=== PATIENT | female | born 1950 | race African-American/Black ===

== ENCOUNTER 2016-12-02 20:33 | Inpatient (IN) | payer MEDICARE ==
[~2016-12-02] VITALS: Ht 165.1 cm; Wt 79.0 kg
[~2016-12-02 20:33] MED LIST: AMLO10TA4 PO; CALC667C6 PO; CARV12.5 PO; FOLI0.8T30 PO; HYDR-2868 PO; HYDR-2869 PO; SPIR25TA PO
[2016-12-02 21:23] LABS: INR 0.9 (0.8-1.1); PROTHROMBIN TIME PATIENT 11.8 SEC (11.7-14.0)
[2016-12-02] MEDS ORDERED: ONDANSETRON PF 4 MG/2 ML VIAL. IV ONE (21:45)
[2016-12-02 21:47] LABS: BASO # 0.1 x10^3/uL (0.0-0.2); BASO % 1 % (0-3); EOS % 2 % (0-3); LYMPH # 1.1 x10^3/uL (1.0-4.8); LYMPH % 21 % (24-48); MEAN CORPUSCULAR HEMOGLOBIN 32 pg (25-35); MEAN CORPUSCULAR HGB CONC 32 g/dL (31-37); MEAN CORPUSCULAR VOLUME 98 fL (79-100); MONO % 8 % (0-9); NEUT % 69 % (31-73); RED BLOOD COUNT 3.76 x10^6/uL (3.50-5.40); RED CELL DISTRIBUTION WIDTH 13.2 % (11.5-14.5)
--- NOTE | 2016-12-02 21:48 | ED.ADGEN ---
Past Medical History Past Medical History: Diabetes-Type II, Hypertension, Renal Failure Additional Past Medical Histor: PSORIATIC ARTHRITIS, DIALYSIS Past Surgical History: , Tubal ligation Additional Past Surgical Histo: L ROTATOR CUFF Alcohol Use: None Drug Use: None Adult General Chief Complaint Chief Complaint: NAUSEA/VOMITING/DIARRHA HPI HPI Patient is a 65 year old [woman, history of type 2 diabetes mellitus, hypertension, renal failure, on hemodialysis, who presents emergency department after several episodes of nausea and vomiting that occurred at her dialysis center today when she was completing dialysis, associated with abdominal cramping and lightheadedness. Per report, the emesis was dark, concern for "looking like coffee". Patient has no history of GI bleeding, no injuries or other episodes of similar events. She has had no vomiting since the leaving the dialysis center, states that she had at least 5 or 6 episodes at that time. Patient denies any preceding symptoms, any fevers or chills, any cough, any chest pain, any shortness of breath, any weakness numbness or tingling. No headache or vision changes. She states she is feeling "very weak" at this time, no cramping currently but still feels dizzy and lightheaded. Denies any missed doses of medication or medication changes. No recent travel or surgery. Review of Systems Review of Systems Constitutional: Denies fever or chills. [] Lightheadedness and dizziness. Eyes: Denies change in visual acuity. [] HENT: Denies nasal congestion or sore throat. [] Respiratory: Denies cough or shortness of breath. [] Cardiovascular: Denies chest pain or edema. [] GI: Abdominal cramping, nausea, vomiting, no dark tarry stools no diarrhea. : Denies dysuria. [] Musculoskeletal: Denies back pain or joint pain. [] Integument: Denies rash. [] Neurologic: Denies headache, focal weakness or sensory changes. [] Endocrine: Denies polyuria or polydipsia. [] Lymphatic: Denies swollen glands. [] Psychiatric: Denies depression or anxiety. [] Current Medications Current Medications Current Medications Medications (Trade) Dose Ordered Sig/Erwin Start Time Stop Time Status Last Admin Dose Admin Ondansetron HCl (Zofran) 4 mg 1X ONCE 12/02/16 21:45 12/02/16 21:46 DC 12/02/16 21:49 4 MG Allergies Allergies Allergies Coded Allergies Type Severity Reaction Last Updated Verified No Known Drug Allergies 03/20/16 No Physical Exam Physical Exam Constitutional: Well developed, well nourished, no acute distress, non-toxic appearance. [] HENT: Normocephalic, atraumatic, bilateral external ears normal, oropharynx moist, no oral exudates, nose normal. [] Eyes: PERRLA, EOMI, conjunctiva normal, no discharge. [] Neck: Normal range of motion, no tenderness, supple, no stridor. [] Cardiovascular:Heart rate regular rhythm, no murmur, S1, S2, rubs or gallops. [] Lungs & Thorax: Bilateral breath sounds clear to auscultation, no wheezing, rhonchi, rales. No chest or crepitus or tenderness. [] Abdomen: Bowel sounds normal, soft, no tenderness, no rebound, rigidity, no guarding, no masses, no pulsatile masses. [] Skin: Warm, dry, no erythema, no rash. [] Back: No tenderness, no CVA tenderness. [] Extremities: No tenderness, no cyanosis, no clubbing, ROM intact, no edema. Negative Homans sign. Patient with left upper extremity AV fistula with good thrill, site is clean dry with dressing intact. [] Neurologic: Alert and oriented X 3, normal motor function, normal sensory function, no focal deficits noted. [] Psychologic: Affect normal, judgement normal, mood normal. [] Current Patient Data Vital Signs Vital Signs Date Time Temp Pulse Resp B/P Pulse Ox O2 Delivery O2 Flow Rate FiO2 12/02/16 23:00 78 100 Room Air 12/02/16 22:30 188/99 12/02/16 20:40 97.6 16 97.6 Lab Values Laboratory Tests Test 12/02/16 21:00 12/02/16 21:35 Prothrombin Time 11.8SEC (11.7-14.0) Prothrombin Time INR 0.9 (0.8-1.1) PTT 26SEC (24-38) White Blood Count 5.0x10^3/uL (4.0-11.0) Red Blood Count 3.76x10^6/uL (3.50-5.40) Hemoglobin 12.0g/dL (12.0-15.5) Hematocrit 37.0% (36.0-47.0) Mean Corpuscular Volume 98fL (79-100) Mean Corpuscular Hemoglobin 32pg (25-35) Mean Corpuscular Hemoglobin Concent 32g/dL (31-37) Red Cell Distribution Width 13.2% (11.5-14.5) Platelet Count 93x10^3/uL (140-400) L Neutrophils (%) (Auto) 69% (31-73) Lymphocytes (%) (Auto) 21% (24-48) L Monocytes (%) (Auto) 8% (0-9) Eosinophils (%) (Auto) 2% (0-3) Basophils (%) (Auto) 1% (0-3) Neutrophils # (Auto) 3.5x10^3uL (1.8-7.7) Lymphocytes # (Auto) 1.1x10^3/uL (1.0-4.8) Monocytes # (Auto) 0.4x10^3/uL (0.0-1.1) Eosinophils # (Auto) 0.1x10^3/uL (0.0-0.7) Basophils # (Auto) 0.1x10^3/uL (0.0-0.2) Platelet Estimate Decreased (ADEQUATE) Large Platelets Few Giant Platelets Occ Sodium Level 124mmol/L (136-145) L Potassium Level 4.4mmol/L (3.5-5.1) Chloride Level 94mmol/L (98-107) L Carbon Dioxide Level 16mmol/L (21-32) L Anion Gap 14 (6-14) Blood Urea Nitrogen 23mg/dL (7-20) H Creatinine 4.1mg/dL (0.6-1.0) H Estimated GFR (Cockcroft-Gault) 13.2 BUN/Creatinine Ratio 6 (6-20) Glucose Level 181mg/dL (70-99) H Calcium Level 9.1mg/dL (8.5-10.1) Total Bilirubin 0.5mg/dL (0.2-1.0) Aspartate Amino Transferase (AST) 56U/L (15-37) H Alanine Aminotransferase (ALT) 40U/L (14-59) Alkaline Phosphatase 88U/L (46-116) Troponin I Quantitative < 0.017ng/mL (0.000-0.055) Total Protein 9.0g/dL (6.4-8.2) H Albumin 3.5g/dL (3.4-5.0) Albumin/Globulin Ratio 0.6 (1.0-1.7) L Laboratory Tests 12/02/16 21:35 Laboratory Tests 12/02/16 21:35 EKG EKG EC: Sinus rhythm, heart rate 70 bpm, left axis deviation, QTC of 455, [place] 216, QRS of 92, some baseline artifact noted, with contour abnormalities noted in the anterior leads and lateral leads, but no ST elevations or depressions, abnormal ECG, does not meet STEMI criteria. As interpreted by me. [] Radiology/Procedures Radiology/Procedures Acute abdominal series: 3 view: Patient with top normal cardiac silhouette,mild cephalization noted, no large effusion or infiltrate identified, no free air, patient with a positive gas in the upper abdomen, noted to have stool and bowel gas throughout the middle and lower parts of the abdomen, constipation noted, no air-fluid levels or evidence of obvious obstruction, as interpreted by me. [] Course & Med Decision Making Course & Med Decision Making Pertinent Labs and Imaging studies reviewed. (See chart for details) Patient with improvement of her symptoms in the ED, states she still feels fatigued, but has had no further vomiting at this time. States he still feels slightly dizzy. CT of the head and imaging of the abdomen was unremarkable for any acute abnormalities. Laboratory studies revealed a mild hyponatremia, potassium was 4.4, with a chloride of 96. No other concerning findings identified. As patient still feels fatigued and dizzy, with some nausea but is improved at this time, I did discuss findings as above with Dr. Cerda of nephrology. It is unlikely the patient's symptoms are due to her sodium level, however he recommends the patient be admitted and observed overnight, will obtain laboratory studies in the morning. I did discuss this with patient and family bedside, patient is agreeable with this plan. She is feeling much better at this time, and as stated has had no further vomiting. Patient initially noted to be hypertensive as well, blood pressure has improved in the ED. Findings as above were discussed with Dr. Rico of internal medicine, patient accepted to her service as a full admission to the medical telemetry floor for monitoring and evaluation as stated. Bridge orders entered per discussion. Dragon Disclaimer Dragon Disclaimer This electronic medical record was generated, in whole or in part, using a voice recognition dictation system. Departure Impression: Primary Impression: ESRD (end stage renal disease) Additional Impression: Nausea and vomiting Disposition: 09 ADMITTED INPATIENT Admitting Physician: Other Condition: IMPROVED Problem Qualifiers SINGH CHILDERS DO Dec 02, 2016 21:48
[2016-12-02 21:58] LABS: CALCIUM 9.1 mg/dL (8.5-10.1); CREATININE 4.1 mg/dL (0.6-1.0); GFR 13.2; POTASSIUM 4.4 mmol/L (3.5-5.1)
[2016-12-02 22:05] LABS: ALBUMIN 3.5 g/dL (3.4-5.0); ALBUMIN/GLOBULIN RATIO 0.6 (1.0-1.7); TOTAL BILIRUBIN 0.5 mg/dL (0.2-1.0)
[2016-12-02 22:11] LABS: PLATELET COUNT 93 x10^3/uL (140-400)
--- NOTE | 2016-12-02 22:37 | RAD ---
PROCEDURE CT head without intravenous contrast. HISTORY Nausea, vomiting, dizziness after hemodialysis. TECHNIQUE Axial images are obtained of the head from the skull base through the vertex without IV contrast Exposure: One or more of the following individualized dose reduction techniques were utilized for this examination: 1. Automated exposure control. 2. Adjustment of the mA and/or kV according to patient size. 3. Use of iterative reconstruction technique. COMPARISON None. FINDINGS The ventricles are appropriate in size, shape, and location for the patient's age.No obvious intracranial mass, mass-effect, midline shift, hemorrhage or obvious acute infarction is identified.Basilar cisterns are patent. Patchy, nonspecific white matter low attenuation is seen, probably from chronic microvascular ischemic disease. Bone windows demonstrate no acute calvarial abnormality.The visualized paranasal sinuses appear clear. IMPRESSION 1. No acute intracranial process. Please note that CT can be relatively insensitive to acute ischemic infarction for up to 24 hours after symptom onset. 2. Nonspecific white matter changes, probably from chronic microvascular ischemic disease. Electronically signed by: Song Ribera MD (Dec 02, 2016 22:35:55)
[2016-12-02 23:03] LABS: PLT ESTIMATE DECREASED (ADEQUATE)
--- NOTE | 2016-12-02 23:57 | ACF ---
Admission Forms Criteria HYPONATREMIA; HYPERNATREMIA; HYPOKALEMIA; HYPERKALEMIA; HYPOCALCEMIA; HYPERCALCEMIA Clinical Indications for Inpatient Care (Place 'X' for any and all applicable criteria): Ongoing inpatient care may be indicated for ANY ONE of the following [G](1)(2)(3 )(5): [ ]I. Hyponatremia with ANY ONE of the following: [ ]a) Sodium less than 130 mEq/L (mmol/L) (new) (6)(22) [ ]b) Sodium less than 135 mEq/L (mmol/L) with ANY ONE of the following: [ ]i) Severe medical etiology requiring inpatient management (eg, heart failure, hypovolemia) [ ]ii) Altered mental status [ ]iii) Seizures [ ]II. Hypernatremia with ANY ONE of the following: [ ]a) Sodium greater than 155 mEq/L (mmol/L) [ ]b) Sodium greater than 150 mEq/L (mmol/L) with ANY ONE of the following: [ ] i) Altered mental status [ ]ii) Seizures [ ]iii) Severe medical etiology (eg, hypovolemia, diabetes insipidus) [ ]iv) Severe weakness [ ]v) Severe medical etiology (eg, hemolysis, infection, drug overdose) [ ]III. Hypokalemia with ANY ONE of the following: [ ]a) Potassium less than 2.5 mEq/L (mmol/L) despite outpatient and emergency treatment [ ]b) Potassium less than 3.0 mEq/L (mmol/L) with ANY ONE of the following: [ ]i) Weakness [ ]ii) Cardiac abnormality (eg, arrhythmia, conduction disturbance) [ ]iii) Cardiac ischemia [ ]iv) Ileus [ ]v) Ongoing medical cause requiring inpatient management. ( e.g., acute renal wasting, SIADH) [ ]vi) Other severe symptoms [ ] IV. Hyperkalemia with ANY ONE of the following: [ ]a) Potassium greater than 6.5 mEq/L (mmol/L) [ ]b) Potassium greater than 5 mEq/L (mmol/L) with ANY ONE of the following: [ ]i) Severe ECG findings [H] [ ]ii) Acute worsening of renal failure (creatinine greater than 2.5 mg/dL (221 micromoles/L) or significant elevation for age and size) [ ] V. Hypocalcemia with ANY ONE of the following: [ ]a) Calcium less than 7 mg/dL (1.75 mmol/L) despite outpatient and emergency treatment(19) [ ]b) Calcium less than 8 mg/dL (2 mmol/L) with significant symptoms or findings; examples include: [ ]i) Cardiac abnormality (eg, arrhythmia or conduction disturbance) [ ]ii) Altered mental status [ ]iii) Seizures [ ]iv) Breathing difficulty [ ]v) Muscle spasms [ ]. Hypercalcemia with ANY ONE of the following: [ ]a) Calcium greater than 14 mg/dL (3.5 mmol/L) [ ]b) Calcium greater than 12 mg/dL (3 mmol/L) with ANY ONE of the following: [ ]i) Significant dehydration or hypovolemia as indicated by ANY ONE of the following(2): [ ]1. Clinically significant dehydration as indicated by ANY ONE of the following: [ ]A. Acute loss of weight from baseline (5% of body weight in adults, 9% in pediatric patients) [ ]B. Hemodynamic instability [ ]C. Acute renal failure [ ]D. Serum sodium greater than 150 mEq/L (mmol/L) [ ]2) Dehydration that is persistent indicated by ALL of the following: [ ]A. Oral rehydration therapy not tolerated or insufficient to adequately correct dehydration [ ]B. Appropriate intravenous treatment (eg, fluids ) does not readily correct dehydration ie, after 12 to 24 hours of treatment) [ ]ii) Significant symptoms or findings; examples include: [ ]1) Altered mental status [ ]2) Cardiac abnormality (eg, arrhythmia, conduction disturbance) [ ]3) Cardiac abnormality (eg, arrhythmia, conduction disturbance) The original [employer] content created by [employer] has been revised. The portions of the content which have been revised are identified through the use of italic text or in bold, and [employer] has neither reviewed nor approved the modified material. All other unmodified content is copyright [employer] Please see references footnoted in the original [employer] edition 2016 FANI DENNIS Dec 02, 2016 23:57
[2016-12-03] VITALS (8 sets, daily range): BP systolic 114–192; BP diastolic 64–103
[2016-12-03] MEDS ORDERED: ACETAMINOPHEN 325 MG TABLET. PO PRN (00:15)
[2016-12-03] MEDS ORDERED: DEXTROSE 50% 25 GM / 50ML DISP.SYRIN. IV PRN (00:15)
[2016-12-03] MEDS ORDERED: ONDANSETRON PF 4 MG/2 ML VIAL. IV PRN (00:15)
[2016-12-03] MEDS ORDERED: LABETALOL 20 MG/4 ML DISP.SYRIN. IVP PRN (00:30)
--- NOTE | 2016-12-03 00:33 | ACF ---
Admission Forms Criteria RENAL FAILURE, CHRONIC Clinical Indications for Admission to Inpatient Care (Place 'X' for any and all applicable criteria): Admission is indicated for ANY ONE of the following (1)(2)(3)(4)(5): [X]I. Inpatient admission required rather than observation care (Use Renal Failure, Chronic: Observation Care Criteria as appropriate) because of ANY ONE of the following: [X]a) Volume overload or uremic symptoms (eg, clinically significant pulmonary edema, hypertension, pericarditis, acidosis) too severe for, or not responsive (eg, for over 24 hours) to emergency department or observation care dialysis or treatment regimen (11) [ ]b) Hemodynamic instability that is severe or persistent [ ]c) Respiratory distress that is severe or persistent (11) [ ]d) Clinically significant electrolyte abnormality that requires inpatient care (eg,hyperkalemia with severe ECG findings)[B] [ ]e) Supplement O2 or respiratory therapy for over 24hrs that is performable only in acute inpatient setting [ ]f) Continuous IV infusion of anticoagulation, platelet inhibitor, vasoactive, or Antiarrhythmic medication (15), [ ]g) Pulmonary artery catheter monitoring [ ]h) Temporary pacemaker placement [ ]i) Emergent pericardiocentesis [ ]j) Other condition, treatment or monitoring requiring inpatient admission [ ]II. Unexplained syncope [A] [ ]III. Recurrent seizures [ ]IV. Severe infections not treatable in outpatient setting (eg, peritonitis)(9 ) [ ]V. Cardiac arrhythmias of immediate concern [ ]. Encephalopathy [ ]VII.Bleeding abnormalities (eg, platelet dysfunction) with active (eg, gastrointestinal) bleeding Extended stay beyond goal length of stay may be needed for (3)(4)(35)(36): [ ]a) Continuing uremic complications [ ]b) Comorbidities or complications The original [employer] content created by [employer] has been revised. The portions of the content which have been revised are identified through the use of italic text or in bold, and [facility] has neither reviewed nor approved the modified material. All other unmodified content is copyright [employer]. Please see references footnoted in the original [facility] edition 2016 Admission Criteria Met?: Yes FANI DENNIS Dec 03, 2016 00:33
[2016-12-03] MEDS: INSULIN ASPART 300 UNITS/3 ML INSULN.PEN SQ SCH ×3 (08:00→17:00)
--- NOTE | 2016-12-03 08:06 | EKG ---
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
--- NOTE | 2016-12-03 08:09 | RAD ---
Acute abdomen series with chest, 3 views, 12/02/2016: History: Nausea and vomiting There is gas and a moderate amount of stool in the colon in a nonspecific pattern. No free air seen in the abdomen. There is no evidence of organomegaly. Scattered degenerative changes are present in the spine. The heart size and pulmonary vascularity are normal. The lungs are clear. There is no evidence of pleural fluid. IMPRESSION: No acute abdominal abnormality is detected.
[2016-12-03 11:35] LABS: CALCIUM 8.7 mg/dL (8.5-10.1); CREATININE 5.6 mg/dL (0.6-1.0); GFR 9.2
--- NOTE | 2016-12-03 11:37 | PDOC2 ---
CONSULT Date of Consult Date of Consult DATE: 12/03/16 TIME: 11:33 Reason for Consult Reason for Consult: LOW NA AND ESRD Referring Physician Referring Physician: YOHANNES Identification/Chief Complaint Chief Complaint N/V Source Source: Chart review, Patient History of Present Illness Reason for Visit: THIS IS A 65 YR OLD ADMITTED WITH N/V. SHE HAS ESRD AND IS ON HD MWF. SHE STARTED TO HAVE THESE SYMPTOMS TOWARDS THE END OF HER HD YESTERDAY. SHE WAS TAKEN OFF AND THEN SENT TO THE ER WHERE SHE WAS NOTED TO HAVE A NA LEVEL OF 124. OTHER LABS ARE C/W ESRD Past Medical History Cardiovascular: HTN GI: Constipation Heme/Onc: Anemia NOS Hepatobiliary: No pertinent hx Psych: No pertinent hx Musculoskeletal: low back pain Renal/: Chronic renal failure Endocrine: Diabetes, Hyperparathyroidism Past Surgical History Past Surgical History: , Tubal Ligation, Other Family History Family History: Hypertension Social History ALCOHOL: none Current Problem List Problem List Problems Medical Problems: (1) ESRD (end stage renal disease) Status: Acute (2) Nausea and vomiting Status: Acute Current Medications Current Medications Current Medications Ondansetron HCl (Zofran) 4 mg 1X ONCE IV Last administered on 12/02/16t 21:49 ; Start 12/02/16 at 21:45; Stop 12/02/16 at 21:46; Status DC Ondansetron HCl (Zofran) 4 mg PRN Q8HRS PRN IV NAUSEA/VOMITING; Start 12/03/16 at 00:15; Stop 12/04/16 at 00:14 Acetaminophen (Tylenol) 650 mg PRN Q4HRS PRN PO FEVER; Start 12/03/16 at 00:15 ; Stop 12/04/16 at 00:14 Insulin Aspart (Novolog) 0-5 UNITS TIDWMEALS SQ ; Start 12/03/16 at 08:00 Dextrose 12.5 gm PRN Q15MIN PRN IV SEE COMMENTS; Start 12/03/16 at 00:15 Labetalol HCl (Normodyne) 20 mg PRN Q2HR PRN IVP HYPERTENSION, SEE COMMENTS; Start 12/03/16 at 00:30 Active Scripts Active Aldactone (Spironolactone) 25 Mg Tablet 1 Tab PO DAILY Coreg (Carvedilol) 12.5 Mg Tablet 1 Tab PO BID Norvasc (Amlodipine Besylate) 10 Mg Tablet 10 Mg PO DAILY Phoslo (Calcium Acetate) 667 Mg Capsule 667 Mg PO TIDWMEALS Reported Hydralazine Hcl 50 Mg Tablet 1 Tab PO BID Renal Vitamin Tablet (Folic Acid/Vit Bcomp,C) 0.8 Mg Tablet 0.8 Mg PO Allergies Allergies: Coded Allergies: No Known Drug Allergies (Unverified , 03/20/16) ROS General: YES: Appetite, Fatigue PSYCHOLOGICAL ROS: YES: Anxiety Eyes: Yes Decreased vision HEENT: YES: Heacaches Respiratory: YES: Cough Gastrointestinal: Yes Constipation, Yes Nausea, Yes Vomiting Genitourinary: YES Other (OLIGURIA) Musculoskeletal: Yes Muscular Weakness Neurological: Yes Weakness Skin: Yes Dry Skin Physical Exam General: Alert, Oriented X3, Cooperative, mild distress HEENT: Atraumatic, PERRLA Lungs: Clear to auscultation Heart: Regular rate, Normal S1 Abdomen: Normal bowel sounds Extremities: No clubbing Neuro: Normal speech, Cranial nerves 3-12 NL Psych/Mental Status: Mental status NL, Mood NL MUSCULOSKELETAL: No deformity, No swelling Vitals VITALS Vital Signs Date Time Temp Pulse Resp B/P Pulse Ox O2 Delivery O2 Flow Rate FiO2 12/03/16 11:01 98.1 77 20 134/71 97 Room Air 98.1 Labs Labs Laboratory Tests Test 12/02/16 21:00 12/02/16 21:35 12/03/16 01:09 12/03/16 06:54 Prothrombin Time 11.8SEC (11.7-14.0) Prothromb Time International Ratio 0.9 (0.8-1.1) Activated Partial Thromboplast Time 26SEC (24-38) White Blood Count 5.0x10^3/uL (4.0-11.0) Red Blood Count 3.76x10^6/uL (3.50-5.40) Hemoglobin 12.0g/dL (12.0-15.5) Hematocrit 37.0% (36.0-47.0) Mean Corpuscular Volume 98fL (79-100) Mean Corpuscular Hemoglobin 32pg (25-35) Mean Corpuscular Hemoglobin Concent 32g/dL (31-37) Red Cell Distribution Width 13.2% (11.5-14.5) Platelet Count 93x10^3/uL (140-400) Neutrophils (%) (Auto) 69% (31-73) Lymphocytes (%) (Auto) 21% (24-48) Monocytes (%) (Auto) 8% (0-9) Eosinophils (%) (Auto) 2% (0-3) Basophils (%) (Auto) 1% (0-3) Neutrophils # (Auto) 3.5x10^3uL (1.8-7.7) Lymphocytes # (Auto) 1.1x10^3/uL (1.0-4.8) Monocytes # (Auto) 0.4x10^3/uL (0.0-1.1) Eosinophils # (Auto) 0.1x10^3/uL (0.0-0.7) Basophils # (Auto) 0.1x10^3/uL (0.0-0.2) Platelet Estimate Decreased (ADEQUATE) Large Platelets Few Giant Platelets Occ Sodium Level 124mmol/L (136-145) Potassium Level 4.4mmol/L (3.5-5.1) Chloride Level 94mmol/L (98-107) Carbon Dioxide Level 16mmol/L (21-32) Anion Gap 14 (6-14) Blood Urea Nitrogen 23mg/dL (7-20) Creatinine 4.1mg/dL (0.6-1.0) Estimated GFR (Cockcroft-Gault) 13.2 BUN/Creatinine Ratio 6 (6-20) Glucose Level 181mg/dL (70-99) Calcium Level 9.1mg/dL (8.5-10.1) Total Bilirubin 0.5mg/dL (0.2-1.0) Aspartate Amino Transf (AST/SGOT) 56U/L (15-37) Alanine Aminotransferase (ALT/SGPT) 40U/L (14-59) Alkaline Phosphatase 88U/L (46-116) Troponin I Quantitative < 0.017ng/mL (0.000-0.055) Total Protein 9.0g/dL (6.4-8.2) Albumin 3.5g/dL (3.4-5.0) Albumin/Globulin Ratio 0.6 (1.0-1.7) Glucose (Fingerstick) 144mg/dL (70-99) 112mg/dL (70-99) Test 12/03/16 10:27 Glucose (Fingerstick) 112mg/dL (70-99) Laboratory Tests Test 12/02/16 21:00 12/02/16 21:35 12/03/16 01:09 12/03/16 06:54 Prothrombin Time 11.8SEC (11.7-14.0) Prothromb Time International Ratio 0.9 (0.8-1.1) Activated Partial Thromboplast Time 26SEC (24-38) White Blood Count 5.0x10^3/uL (4.0-11.0) Red Blood Count 3.76x10^6/uL (3.50-5.40) Hemoglobin 12.0g/dL (12.0-15.5) Hematocrit 37.0% (36.0-47.0) Mean Corpuscular Volume 98fL (79-100) Mean Corpuscular Hemoglobin 32pg (25-35) Mean Corpuscular Hemoglobin Concent 32g/dL (31-37) Red Cell Distribution Width 13.2% (11.5-14.5) Platelet Count 93x10^3/uL (140-400) Neutrophils (%) (Auto) 69% (31-73) Lymphocytes (%) (Auto) 21% (24-48) Monocytes (%) (Auto) 8% (0-9) Eosinophils (%) (Auto) 2% (0-3) Basophils (%) (Auto) 1% (0-3) Neutrophils # (Auto) 3.5x10^3uL (1.8-7.7) Lymphocytes # (Auto) 1.1x10^3/uL (1.0-4.8) Monocytes # (Auto) 0.4x10^3/uL (0.0-1.1) Eosinophils # (Auto) 0.1x10^3/uL (0.0-0.7) Basophils # (Auto) 0.1x10^3/uL (0.0-0.2) Platelet Estimate Decreased (ADEQUATE) Large Platelets Few Giant Platelets Occ Sodium Level 124mmol/L (136-145) Potassium Level 4.4mmol/L (3.5-5.1) Chloride Level 94mmol/L (98-107) Carbon Dioxide Level 16mmol/L (21-32) Anion Gap 14 (6-14) Blood Urea Nitrogen 23mg/dL (7-20) Creatinine 4.1mg/dL (0.6-1.0) Estimated GFR (Cockcroft-Gault) 13.2 BUN/Creatinine Ratio 6 (6-20) Glucose Level 181mg/dL (70-99) Calcium Level 9.1mg/dL (8.5-10.1) Total Bilirubin 0.5mg/dL (0.2-1.0) Aspartate Amino Transf (AST/SGOT) 56U/L (15-37) Alanine Aminotransferase (ALT/SGPT) 40U/L (14-59) Alkaline Phosphatase 88U/L (46-116) Troponin I Quantitative < 0.017ng/mL (0.000-0.055) Total Protein 9.0g/dL (6.4-8.2) Albumin 3.5g/dL (3.4-5.0) Albumin/Globulin Ratio 0.6 (1.0-1.7) Glucose (Fingerstick) 144mg/dL (70-99) 112mg/dL (70-99) Test 12/03/16 10:27 Glucose (Fingerstick) 112mg/dL (70-99) Assessment/Plan Assessment/Plan IMP HYPONATREMIA NAUSEA/VOMITING-BETTER ESRD PLAN REPEAT NA LEVEL ? LAB ERROR HD MWF OK TO D/C FROM RENAL STANDPOINT IF PENDING NA LEVEL IS GOOD WILL FOLLOW JITENDRA HESS MD Dec 03, 2016 11:36
--- NOTE | 2016-12-03 17:10 | HP ---
ADMIT DATE: 12/02/2016 CHIEF COMPLAINT: Hypotension, hyponatremia after dialysis or during dialysis. HISTORY OF PRESENT ILLNESS: The patient is a 65-year-old -[place] woman who underwent her usual dialysis yesterday. She had bouts of hypotension, which actually prompted transfer to the Emergency Room last night. There she was found with a sodium of 124 and admitted for further observation. This morning, the patient relates that she is feeling much better. She is generally fairly weak and has not gotten up today. She denies any dizziness, any new symptoms. PAST MEDICAL HISTORY: End-stage renal disease, on dialysis; hyperparathyroidism; diabetes mellitus; chronic low back pain; anemia and hypertension. FAMILY HISTORY: Hypertension. SOCIAL HISTORY: No toxic habits. ALLERGIES: No known drug allergies. MEDICATIONS: MAR reconciled with home medications. REVIEW OF SYSTEMS: Positive as per HPI. She is today essentially nonfocal. PHYSICAL EXAMINATION: VITAL SIGNS: From today show a blood pressure of 134/71, heart rate of 77, respiratory rate at 20. She is afebrile. GENERAL: This is an overweight 65-year-old -[place] woman, alert and oriented, in no acute distress. HEENT: Shows no scleral icterus. NECK: Supple. LUNGS: Clear. HEART: Regular rate and rhythm. ABDOMEN: Has positive bowel sounds, soft, nontender. EXTREMITIES: Show no edema. LABORATORY DATA: CBC with a WBC of 5.0, hemoglobin 12.0, platelets of 93. Chemistries with a BUN and creatinine of 36 and 5.6, sodium of 125, chloride of 95, potassium at 5.0, glucose at 111. Of note at admission, sodium had been 124, CO2 at 16. ASSESSMENT AND PLAN: The patient is a 65-year-old woman who comes up with electrolyte derangement right after dialysis. Nephrology has been consulted to direct further adjustments. Typically fluids would be given. Assume potentially dialysis to correct the electrolytes today. For her other medical problems, her blood pressure medications will be continued. Blood pressure currently is under good control. She does have a reported history of insulin; is however, on no medications at home. We will have insulin sliding scale in place here. BETITO SHEFFIELD MD DR: DESTIN/maria antonia JOB#: [id number] / [id number]
[2016-12-03] MEDS: CALCIUM ACETATE 667 MG CAPSULE PO SCH (17:21)
[2016-12-03] MEDS: CARVEDILOL 12.5 MG TABLET PO SCH (17:22)
[2016-12-03] MEDS: HYDRALAZINE 50 MG TABLET PO SCH (20:49)
[2016-12-04 05:28] LABS: BASO # 0.1 x10^3/uL (0.0-0.2); BASO % 1 % (0-3); EOS % 4 % (0-3); HEMATOCRIT 32.4 % (36.0-47.0); HEMOGLOBIN 10.8 g/dL (12.0-15.5); LYMPH # 2.2 x10^3/uL (1.0-4.8); LYMPH % 41 % (24-48); MEAN CORPUSCULAR HEMOGLOBIN 32 pg (25-35); MEAN CORPUSCULAR HGB CONC 34 g/dL (31-37); MEAN CORPUSCULAR VOLUME 97 fL (79-100); MONO % 10 % (0-9); NEUT % 45 % (31-73); RED BLOOD COUNT 3.35 x10^6/uL (3.50-5.40); WHITE BLOOD COUNT 5.4 x10^3/uL (4.0-11.0)
[2016-12-04 07:00] VITALS: BP 143/68
[2016-12-04 07:28] LABS: PLATELET COUNT 64 x10^3/uL (140-400)
[2016-12-04] MEDS: CALCIUM ACETATE 667 MG CAPSULE PO SCH ×2 (08:00→13:48)
[2016-12-04] MEDS: INSULIN ASPART 300 UNITS/3 ML INSULN.PEN SQ SCH ×2 (08:00→12:00)
[2016-12-04 08:50] VITALS: BP 143/68
[2016-12-04] MEDS ORDERED: IV NORMAL SALINE 1000ML BAG 1,000 ML IV PRN ×2 (08:59)
[2016-12-04] MEDS ORDERED: LABETALOL 20 MG/4 ML DISP.SYRIN. IVP PRN (09:00)
[2016-12-04] MEDS ORDERED: AMLODIPINE BESYLATE 10 MG TABLET PO SCH (09:00)
[2016-12-04] MEDS ORDERED: DIALYSIS PATIENT. MC PRN (09:00)
[2016-12-04] MEDS ORDERED: FOLIC/VIT B COMP W-C (RENAL) TABLET. PO SCH (09:00)
[2016-12-04] MEDS ORDERED: DIPHENHYDRAMINE 50 MG/ML VIAL IV PRN ×2 (09:00)
[2016-12-04] MEDS ORDERED: ACETAMINOPHEN 500 MG TABLET PO PRN (09:00)
[2016-12-04 11:00] LABS: POTASSIUM 3.1 mmol/L (3.5-5.1)
--- NOTE | 2016-12-04 11:26 | PDOC ---
Renal-Progress Notes Subjective Notes Notes FEELS WELL History of Present Illness Hx of present illness BETTER Vitals Vitals Vital Signs Date Time Temp Pulse Resp B/P Pulse Ox O2 Delivery O2 Flow Rate FiO2 12/04/16 08:50 98.5 68 16 143/68 99 Room Air 98.5 Weight Weight [ ] I.O. Intake and Output Intake and Output 12/04/16 07:00 Intake Total 1440 ml Balance 1440 ml Intake Oral 1440 ml # Voids 2 Labs Labs Laboratory Tests Test 12/03/16 16:29 12/03/16 20:40 12/04/16 04:20 12/04/16 07:43 Glucose (Fingerstick) 115mg/dL (70-99) 148mg/dL (70-99) 88mg/dL (70-99) White Blood Count 5.4x10^3/uL (4.0-11.0) Red Blood Count 3.35x10^6/uL (3.50-5.40) Hemoglobin 10.8g/dL (12.0-15.5) Hematocrit 32.4% (36.0-47.0) Mean Corpuscular Volume 97fL (79-100) Mean Corpuscular Hemoglobin 32pg (25-35) Mean Corpuscular Hemoglobin Concent 34g/dL (31-37) Red Cell Distribution Width 13.0% (11.5-14.5) Platelet Count 64x10^3/uL (140-400) Neutrophils (%) (Auto) 45% (31-73) Lymphocytes (%) (Auto) 41% (24-48) Monocytes (%) (Auto) 10% (0-9) Eosinophils (%) (Auto) 4% (0-3) Basophils (%) (Auto) 1% (0-3) Neutrophils # (Auto) 2.4x10^3uL (1.8-7.7) Lymphocytes # (Auto) 2.2x10^3/uL (1.0-4.8) Monocytes # (Auto) 0.5x10^3/uL (0.0-1.1) Eosinophils # (Auto) 0.2x10^3/uL (0.0-0.7) Basophils # (Auto) 0.1x10^3/uL (0.0-0.2) Test 12/04/16 10:15 Sodium Level 136mmol/L (136-145) Potassium Level 3.1mmol/L (3.5-5.1) Chloride Level 103mmol/L (98-107) Carbon Dioxide Level 24mmol/L (21-32) Anion Gap 9 (6-14) Review of Systems Constitutional: yes: no symptom reported Ears/Nose/Throat: Yes: no symptom reported Eyes: Yes: no symptom reported Pulmonary: Yes no symptom reported Cardiovascular: Yes no symptom reported Gastrointestional: Yes: no symptom reported Musculoskeletal: Yes: no symptom reported Skin: Yes no symptom reported Psychiatric/Neurological: Yes: no symptom reported Physical Exam General Appearance: no apparent distress Skin: warm Respiratory: bilateral CTA Heart: S1S2, RRR Abdomen: soft, bowel sounds present Genitourinary: bladder flat Neurology: alert, oriented Assessment Assessment IMP HYPONATREMIA-RESOLVED N/V-RESOLVED ANEMIA ESRD PLAN HD TODAY UF TO DW OK TO D/C FROM [facility] JITENDRA HESS MD Dec 04, 2016 11:26
[2016-12-04] MEDS: CARVEDILOL 12.5 MG TABLET PO SCH (13:48)
[2016-12-04] MEDS: HYDRALAZINE 50 MG TABLET PO SCH (13:48)
--- NOTE | 2016-12-04 14:49 | PDOC ---
PROGRESS NOTES Chief Complaint Chief Complaint N/V Hyponatremia ASSESSMENT AND PLAN: 1. N/V: resolved. 2. Hyponatremia: resolved 3. Hyponatremia: addressed in subsequent HD 4. DM: well controlled 5. Dispo: home post HD Vitals Vitals Vital Signs Date Time Temp Pulse Resp B/P Pulse Ox O2 Delivery O2 Flow Rate FiO2 12/04/16 13:49 68 143/68 12/04/16 11:00 OFF UNIT 12/04/16 08:50 98.5 16 99 98.5 Physical Exam General: Alert, Oriented X3, Cooperative, No acute distress Heart: Regular rate, Normal S1 Lungs: Clear Abdomen: Normal bowel sounds Extremities: No clubbing Labs LABS Laboratory Tests Test 12/03/16 16:29 12/03/16 20:40 12/04/16 04:20 12/04/16 07:43 Glucose (Fingerstick) 115mg/dL (70-99) 148mg/dL (70-99) 88mg/dL (70-99) White Blood Count 5.4x10^3/uL (4.0-11.0) Red Blood Count 3.35x10^6/uL (3.50-5.40) Hemoglobin 10.8g/dL (12.0-15.5) Hematocrit 32.4% (36.0-47.0) Mean Corpuscular Volume 97fL (79-100) Mean Corpuscular Hemoglobin 32pg (25-35) Mean Corpuscular Hemoglobin Concent 34g/dL (31-37) Red Cell Distribution Width 13.0% (11.5-14.5) Platelet Count 64x10^3/uL (140-400) Neutrophils (%) (Auto) 45% (31-73) Lymphocytes (%) (Auto) 41% (24-48) Monocytes (%) (Auto) 10% (0-9) Eosinophils (%) (Auto) 4% (0-3) Basophils (%) (Auto) 1% (0-3) Neutrophils # (Auto) 2.4x10^3uL (1.8-7.7) Lymphocytes # (Auto) 2.2x10^3/uL (1.0-4.8) Monocytes # (Auto) 0.5x10^3/uL (0.0-1.1) Eosinophils # (Auto) 0.2x10^3/uL (0.0-0.7) Basophils # (Auto) 0.1x10^3/uL (0.0-0.2) Test 12/04/16 10:15 Sodium Level 136mmol/L (136-145) Potassium Level 3.1mmol/L (3.5-5.1) Chloride Level 103mmol/L (98-107) Carbon Dioxide Level 24mmol/L (21-32) Anion Gap 9 (6-14) Review of Systems Review of Systems feels well, no nausea, no dizziness BETITO SHEFFIELD MD Dec 04, 2016 14:49
[2016-12-04 15:00] VITALS: BP 128/60
[2016-12-04 20:18] LABS: HEP B SURFACE ABDY Reactive (.)
--- NOTE | 2016-12-05 02:22 | DS ---
DATE OF DISCHARGE: 12/04/2016 CHIEF COMPLAINT: Nausea, vomiting and hyponatremia. HOSPITAL COURSE: The patient is a 65-year-old -[place] woman with end-stage renal disease who presented to the Emergency Room directly from dialysis where she had developed nausea and vomiting towards the end of her dialysis cycle. In the Emergency Room, she was found with severe hyponatremia at 125. Unfortunately, it took a while to correct, but on the was completely corrected. The patient underwent dialysis in the hospital and was subsequently discharged. Nausea, vomiting, did not persist past the Emergency Room even without further medications. DISCHARGE DATE: 12/04/2016. DISCHARGE DIAGNOSES: Hyponatremia, nausea, vomiting. DISCHARGE EXAMINATION: Please refer to note from same day. DISCHARGE DISPOSITION: To home. DISCHARGE CONDITION: Improved. DISCHARGE MEDICATIONS: Same as at admit. DISCHARGE INSTRUCTIONS: The patient will continue with dialysis as previously arranged. She will see her primary care physician in 1-2 weeks. BETITO SHEFFIELD MD DR: DESTIN/nts JOB#: [id number] / [id number] CARA Jansen MD
== END 2016-12-04 17:10 | disposition home or self-care (01) | DRG 640 ==
LOC: ER 20:33 → 5 SOUTH 23:17
PROVIDERS: ADMIT Internal Medicine Hematology & Oncology; ATTEND Internal Medicine Hematology & Oncology
PROC: 5A1D00Z (ICD-10-PCS; principal; 2016-12-04)
DX: E87.1 Hypo-osmolality and hyponatremia (principal); N18.6 End stage renal disease; I12.0 Hypertensive chronic kidney disease with stage 5 chronic kidney disease or end stage renal disease; D64.9 Anemia, unspecified; E11.22 Type 2 diabetes mellitus with diabetic chronic kidney disease; E21.3 Hyperparathyroidism, unspecified; G89.29 Other chronic pain; M54.5 Low back pain; Z99.2 Dependence on renal dialysis; Z82.49 Family history of ischemic heart disease and other diseases of the circulatory system; Z98.51 Tubal ligation status
CPT/HCPCS: 36415; 70450; 74022; 80048; 80051; 80053; 82947; 84484; 85007; 85027; 85610; 85730; 86706; 87340; 87341; 93005; 96374; J1815; J2405; 99285-25

== ENCOUNTER 2021-03-19 07:36 | Inpatient (IN) | payer MEDICARE ==
[~2021-03-19] VITALS: Ht 165.1 cm; Wt 69.4 kg
--- NOTE | 2021-03-19 08:19 | RAD ---
Exam performed: One view Chest HISTORY: Shortness of breath. DATE OF SERVICE: 03/19/2021. COMPARISON: Two-view chest from October 30, 2015. FINDINGS: Cardiomegaly. Central vascular congestion is noted. There are prominent interstitial and airspace opa cities in both perihilar regions. There is no pleural effusion or pneumothorax. IMPRESSION: Cardiomegaly with CHF Electronically signed by: Cuca Ellison MD (03/19/2021 8:16 AM) [facility]
[2021-03-19 08:23] LABS: BASO % 0 % (0-3); EOS # 0.1 x10^3/uL (0.0-0.7); EOS % 2 % (0-3); HEMATOCRIT 35.5 % (36.0-47.0); HEMOGLOBIN 11.6 g/dL (12.0-15.5); LYMPH # 0.9 x10^3/uL (1.0-4.8); LYMPH % 18 % (24-48); MEAN CORPUSCULAR HEMOGLOBIN 33 pg (25-35); MEAN CORPUSCULAR HGB CONC 33 g/dL (31-37); MEAN CORPUSCULAR VOLUME 101 fL (79-100); MONO # 0.6 x10^3/uL (0.0-1.1); MONO % 11 % (0-9); NEUT # 3.5 x10^3/uL (1.8-7.7); NEUT % 68 % (31-73); PLATELET COUNT 108 x10^3/uL (140-400); RED BLOOD COUNT 3.51 x10^6/uL (3.50-5.40); RED CELL DISTRIBUTION WIDTH 13.9 % (11.5-14.5); WHITE BLOOD COUNT 5.2 x10^3/uL (4.0-11.0)
--- NOTE | 2021-03-19 08:29 | PHYS DOC ---
Past Medical History Past Medical History: Diabetes-Type II, Hypertension, Renal Failure Additional Past Medical Histor: PSORIATIC ARTHRITIS, DIALYSIS Past Surgical History: , Tubal ligation Additional Past Surgical Histo: L ROTATOR CUFF Smoking Status: Never Smoker Alcohol Use: None Drug Use: None General Adult EDM: Chief Complaint: SHORTNESS OF BREATH HPI: HPI: 70 yo F past medical history of esrd, hypertension, diabetes and CHF, presents to the ED with complaints of shortness of breath and orthopnea since 2:30 AM, unable to sleep at night. Patient is requesting Lasix. Associated lower extremity swelling. Is due for dialysis today, has not missed dialysis. Has been vaccinated for Covid. Review of Systems: Review of Systems: Constitutional: Denies fever or chills. [] Eyes: Denies change in visual acuity. [] HENT: Denies nasal congestion or sore throat. [] Respiratory: Denies cough or hemoptysis Cardiovascular: Denies chest pain or edema. [] GI: Denies abdominal pain, nausea, vomiting, bloody stools or diarrhea. [] : Denies dysuria or hematuria Musculoskeletal: Denies back pain or joint pain. [] Integument: Denies rash or diaphoresis Neurologic: Denies headache, focal weakness or sensory changes. [] Endocrine: Denies polyuria or polydipsia. [] Lymphatic: Denies swollen glands. [] Psychiatric: Denies depression or anxiety. [] Heart Score: C/O Chest Pain: No Risk Factors: Risk Factors: DM, Current or recent (<one month) smoker, HTN, HLP, family history of CAD, obesity. Risk Scores: Score 0 - 3: 2.5% MACE over next 6 weeks - Discharge Home Score 4 - 6: 20.3% MACE over next 6 weeks - Admit for Clinical Observation Score 7 - 10: 72.7% MACE over next 6 weeks - Early Invasive Strategies Allergies: Allergies: Allergies Coded Allergies Type Severity Reaction Last Updated Verified No Known Drug Allergies 03/20/16 No Physical Exam: PE: Constitutional: Well developed, well nourished, no acute distress, non-toxic appearance, hypertensive, systolic 219 HENT: Normocephalic, atraumatic, Eyes: EOMI, conjunctiva normal, no discharge. Neck: Normal range of motion, supple, JVD bilaterally Cardiovascular: S1/2 present, regular rhythm Lungs & Thorax: Splinting in ED/speaking in 3-4 word sentences with moderate tachypnea, bilateral equal chest rise, Abdomen: soft, no tenderness, Skin: Warm, dry, no erythema, no rash. [] Back: No tenderness, no CVA tenderness. [] Extremities: No tenderness, no cyanosis, equal pitting lower extremity edema Neurologic: Alert and oriented X 3, normal motor function, normal sensory function, no focal deficits noted. [] Psychologic: Affect normal, judgement normal, mood normal. [] Current Patient Data: Vital Signs: Vital Signs Date Time Temp Pulse Resp B/P (MAP) Pulse Ox O2 Delivery O2 Flow Rate FiO2 03/19/21 07:50 97.8 88 29 219/99 (82) 96 Room Air 97.8 EKG: EKG: Sinus rhythm 87 bpm, left axis deviation, normal intervals, T wave inversion lead III, no ST elevations or ST depressions Radiology/Procedures: Radiology/Procedures: IMAGING REPORT Signed PATIENT: SANJAY COLEMAN ACCOUNT: [id number] : 1950 LOCATION: ER AGE: 70 SEX: F EXAM STATUS: PRE ER ORD. PHYSICIAN: LIA JOHNSON DO REASON: SHORT OF BREATH PROCEDURE: PORTABLE CHEST 1V Exam performed: One view Chest HISTORY: Shortness of breath. DATE OF SERVICE: 03/19/2021. COMPARISON: Two-view chest from October 30, 2015. FINDINGS: Cardiomegaly. Central vascular congestion is noted. There are prominent interstitial and airspace opacities in both perihilar regions. There is no pleur al effusion or pneumothorax. IMPRESSION: Cardiomegaly with CHF Electronically signed by: Cuca Ellison MD (03/19/2021 8:16 AM) [facility] DICTATED and SIGNED BY: CUCA ELLISON MD DATE: 03/19/21 [id number] 0 Course & Med Decision Making: Course & Med Decision Making Pertinent Labs and Imaging studies reviewed. (See chart for details) Concern for acute CHF exacerbation. Patient makes urine, Lasix given in ED. Will admit for further medical management. Patient stable time of admission and agrees with this plan. I have spoken with the patient and/or caregivers. I have explained the patient's condition, diagnosis and treatment plan based on the information available to me at this time. I have answered the patient's and/or caregivers questions and answered any concerns. The patient and/or caregivers have as good an understanding of the patient's diagnosis, condition and treatment plan as can be expected at this point. The patient has been stabilized within the capability of the emergency department. The patient will be transported for further care and management or will be moved to an observation or inpatient service. I have communicated with the staff or medical practitioner taking over this patient's care. Dragon Disclaimer: Dragon Disclaimer: This electronic medical record was generated, in whole or in part, using a voice recognition dictation system. Departure Departure Impression: Primary Impression: Acute dyspnea Additional Impressions: Acute CHF Cardiomegaly Uncontrolled hypertension Disposition: ADMITTED INPATIENT Admitting Physician: [facility] (Dr. Sanchez) Condition: STABLE Referrals: CARA MONIQUE MD (PCP) LIA JOHNSON DO Mar 19, 2021 08:29
[2021-03-19 08:33] LABS: CALCIUM 8.6 mg/dL (8.5-10.1); CREATININE 8.2 mg/dL (0.6-1.0); GFR 5.8; POTASSIUM 4.7 mmol/L (3.5-5.1)
[2021-03-19 08:39] LABS: ALBUMIN 3.5 g/dL (3.4-5.0); ALBUMIN/GLOBULIN RATIO 0.8 (1.0-1.7); TOTAL BILIRUBIN 0.4 mg/dL (0.2-1.0); TOTAL PROTEIN 8.1 g/dL (6.4-8.2)
--- NOTE | 2021-03-19 09:53 | PDOC1 ---
History and Physical Date of Admission Date of Admission DATE: 03/19/21 TIME: 09:52 Identification/Chief Complaint Chief Complaint shortness of breath, may have eaten too much salt over the weekend, c/o chest tightness, discomfort ? missed dialysis, inc difficulty breathing when supine History of Present Illness History of Present Illness 70 yr old female Seen in ER WITH acute CHF, Volume overload c/o chest tightness, discomfort noted inc difficulty breathing when supine troponin i neg x 1 , admits dietary noncompliance /// nephrology and cardiology consulted known ESRD ON DIALYSIS// Acute CHF// Central vascular congestion is noted. There are prominent interstitial and airspace opacities in both perihilar regions recent echo c/w Grade IV diastolic dysfunction. moderate concentric left ventricular hypertrophy. Mild to moderate aortic regurgitation. Moderate mitral regurgitation. Uncontrolled hypertension noted on admit Past Medical History Past Medical History Past Medical History Past Medical History: Diabetes-Type II, Hypertension, Renal Failure Additional Past Medical Histor: PSORIATIC ARTHRITIS, DIALYSIS Past Surgical History: , Tubal ligation Additional Past Surgical Histo: L ROTATOR CUFF Smoking Status: Never Smoker Alcohol Use: None Drug Use: None PAST MEDICAL HISTORY: End-stage renal disease, on dialysis; hyperparathyroidism; diabetes mellitus; chronic low back pain; anemia and hypertension. FAMILY HISTORY: Hypertension. SOCIAL HISTORY: No toxic habits. FHX HTN Cardiovascular: HTN GI: Constipation Heme/Onc: Anemia NOS Hepatobiliary: No pertinent hx Psych: No pertinent hx, Anxiety Musculoskeletal: Osteoarthritis Renal/: Chronic renal failure Endocrine: Diabetes, Hyperparathyroidism Past Surgical History Past Surgical History: , Tubal Ligation, Other Family History Family History: Hypertension Social History Smoke: <1 pack per day ALCOHOL: none Drugs: None Current Problem List Problem List Problems Medical Problems: (1) Acute CHF Status: Acute (2) Acute dyspnea Status: Acute (3) Cardiomegaly Status: Acute (4) Uncontrolled hypertension Status: Acute Current Medications Current Medications Active Scripts Active Aldactone (Spironolactone) 25 Mg Tablet 1 Tab PO DAILY Coreg (Carvedilol) 12.5 Mg Tablet 1 Tab PO BID Norvasc (Amlodipine Besylate) 10 Mg Tablet 10 Mg PO DAILY Phoslo (Calcium Acetate) 667 Mg Capsule 667 Mg PO TIDWMEALS Reported Hydralazine Hcl 50 Mg Tablet 1 Tab PO BID Renal Vitamin Tablet (Folic Acid/Vit Bcomp,C) 0.8 Mg Tablet 0.8 Mg PO Allergies Allergies: Coded Allergies: No Known Drug Allergies (Unverified , 03/20/16) ROS General: YES: Fatigue; No: Chills, Night Sweats, Malaise, Appetite, Other PSYCHOLOGICAL ROS: No: Anxiety, Behavioral Disorder, Concentration difficultie, Decreased libido, Depression, Disorientation, Hallucinations, Hostility, Irritablity, Memory difficulties, Mood Swings, Obsessive thoughts, Physical abuse, Sexual abuse, Sleep disturbances, Suicidal ideation, Other Eyes: No Blurry vision, No Decreased vision, No Double vision, No Dry eyes, No Excessive tearing, No Eye Pain, No Itchy Eyes, No Loss of vision, No Photophobia, No Scotomata, No Uses contacts, No Uses glasses, No Other HEENT: No: Heacaches, Visual Changes, Hearing change, Nasal congestion, Nasal discharge, Oral lesions, Sinus pain, Sore Throat, Epistaxis, Sneezing, Snoring, Tinnitus, Vertigo, Vocal changes, Other ALLERGY AND IMMUNOLOGY: No: Hives, Insect Bite Sensitivity, Itchy/Watery Eyes, Nasal Congestion, Post Nasal Drip, Seasonal Allergies, Other Hematological and Lymphatic: No: Bleeding Problems, Blood Clots, Blood Transfusions, Brusing, Night Sweats, Pallor, Swollen Lymph Nodes, Other ENDOCRINE: No: Breast Changes, Galactorrhea, Hair Pattern Changes, Hot Flashes, Malaise/lethargy, Mood Swings, Palpitations, Polydipsia/polyuria, Skin Changes, Temperature Intolerance, Unexpected Weight Changes, Other Breast: No New/Changing Breast Lumps, No Nipple changes, No Nipple discharge, No Other Respiratory: YES: Shortness of breath, SOB with excertion Cardiovascular: yes Orthopnea; No Chest Pain, No Palpitations, No Paroxysmal Noc. Dyspnea, No Edema, No Lt Headedness, No Other Gastrointestinal: No Nausea, No Vomiting, No Abdominal Pain, No Diarrhea, No Constipation, No Melena, No Hematochezia, No Other Genitourinary: No Dysuria, No Frequency, No Incontinence, No Hematuria, No Retention, No Discharge, No Urgency, No Pain, No Flank Pain, No Other, No , No , No , No , No , No , No Musculoskeletal: Yes Joint Stiffness; No Gait Disturbance, No Joint Pain, No Joint Swelling, No Muscle Pain, No Muscular Weakness, No Pain In:, No Swelling In:, No Other Neurological: No Behavorial Changes, No Bowel/Bladder ControlChng, No Confusion, No Dizziness, No Gait Disturbance, No Headaches, No Impaired Coord/balance, No Memory Loss, No Numbness/Tingling, No Seizures, No Speech Problems, No Tremors, No Visual Changes, No Weakness, No Other Skin: No Dry Skin, No Eczema, No Hair Changes, No Lumps, No Mole Changes, No Mottling, No Nail Changes, No Pruritus, No Rash, No Skin Lesion Changes, No Other, No Acne Physical Exam General: Alert, Oriented X3, Cooperative, No acute distress, mild distress HEENT: Atraumatic, EOMI, Mucous membr. moist/pink Lungs: Normal air movement, Other (bibasilar crackles) Heart: RRR, no thrills, jugular vein distention Breasts: Not examined Abdomen: Normal bowel sounds, Soft Rectal Exam: not examined PELVIC: Examination not indicated Extremities: No cyanosis Skin: No significant lesion Neuro: Normal speech, Strength at 5/5 X4 ext, Sensation intact, Cranial nerves 3-12 NL Psych/Mental Status: Mental status NL, Mood NL Vitals Vitals Vital Signs Date Time Temp Pulse Resp B/P (MAP) Pulse Ox O2 Delivery O2 Flow Rate FiO2 03/19/21 07:50 97.8 88 29 219/99 (82) 96 Room Air 97.8 Labs Labs Laboratory Tests Test 03/19/21 08:13 White Blood Count 5.2 x10^3/uL (4.0-11.0) Red Blood Count 3.51 x10^6/uL (3.50-5.40) Hemoglobin 11.6 g/dL (12.0-15.5) Hematocrit 35.5 % (36.0-47.0) Mean Corpuscular Volume 101 fL (79-100) Mean Corpuscular Hemoglobin 33 pg (25-35) Mean Corpuscular Hemoglobin Concent 33 g/dL (31-37) Red Cell Distribution Width 13.9 % (11.5-14.5) Platelet Count 108 x10^3/uL (140-400) Neutrophils (%) (Auto) 68 % (31-73) Lymphocytes (%) (Auto) 18 % (24-48) Monocytes (%) (Auto) 11 % (0-9) Eosinophils (%) (Auto) 2 % (0-3) Basophils (%) (Auto) 0 % (0-3) Neutrophils # (Auto) 3.5 x10^3/uL (1.8-7.7) Lymphocytes # (Auto) 0.9 x10^3/uL (1.0-4.8) Monocytes # (Auto) 0.6 x10^3/uL (0.0-1.1) Eosinophils # (Auto) 0.1 x10^3/uL (0.0-0.7) Basophils # (Auto) 0.0 x10^3/uL (0.0-0.2) Sodium Level 139 mmol/L (136-145) Potassium Level 4.7 mmol/L (3.5-5.1) Chloride Level 101 mmol/L (98-107) Carbon Dioxide Level 27 mmol/L (21-32) Anion Gap 11 (6-14) Blood Urea Nitrogen 41 mg/dL (7-20) Creatinine 8.2 mg/dL (0.6-1.0) Estimated GFR (Cockcroft-Gault) 5.8 BUN/Creatinine Ratio 5 (6-20) Glucose Level 116 mg/dL (70-99) Calcium Level 8.6 mg/dL (8.5-10.1) Total Bilirubin 0.4 mg/dL (0.2-1.0) Aspartate Amino Transf (AST/SGOT) 34 U/L (15-37) Alanine Aminotransferase (ALT/SGPT) 19 U/L (14-59) Alkaline Phosphatase 98 U/L (46-116) Creatine Kinase 68 U/L (26-192) Troponin I Quantitative < 0.017 ng/mL (0.000-0.055) GH-Szs-C-Type Natriuretic Peptide 44469 pg/mL (0-124) Total Protein 8.1 g/dL (6.4-8.2) Albumin 3.5 g/dL (3.4-5.0) Albumin/Globulin Ratio 0.8 (1.0-1.7) Laboratory Tests Test 03/19/21 08:13 White Blood Count 5.2 x10^3/uL (4.0-11.0) Red Blood Count 3.51 x10^6/uL (3.50-5.40) Hemoglobin 11.6 g/dL (12.0-15.5) Hematocrit 35.5 % (36.0-47.0) Mean Corpuscular Volume 101 fL (79-100) Mean Corpuscular Hemoglobin 33 pg (25-35) Mean Corpuscular Hemoglobin Concent 33 g/dL (31-37) Red Cell Distribution Width 13.9 % (11.5-14.5) Platelet Count 108 x10^3/uL (140-400) Neutrophils (%) (Auto) 68 % (31-73) Lymphocytes (%) (Auto) 18 % (24-48) Monocytes (%) (Auto) 11 % (0-9) Eosinophils (%) (Auto) 2 % (0-3) Basophils (%) (Auto) 0 % (0-3) Neutrophils # (Auto) 3.5 x10^3/uL (1.8-7.7) Lymphocytes # (Auto) 0.9 x10^3/uL (1.0-4.8) Monocytes # (Auto) 0.6 x10^3/uL (0.0-1.1) Eosinophils # (Auto) 0.1 x10^3/uL (0.0-0.7) Basophils # (Auto) 0.0 x10^3/uL (0.0-0.2) Sodium Level 139 mmol/L (136-145) Potassium Level 4.7 mmol/L (3.5-5.1) Chloride Level 101 mmol/L (98-107) Carbon Dioxide Level 27 mmol/L (21-32) Anion Gap 11 (6-14) Blood Urea Nitrogen 41 mg/dL (7-20) Creatinine 8.2 mg/dL (0.6-1.0) Estimated GFR (Cockcroft-Gault) 5.8 BUN/Creatinine Ratio 5 (6-20) Glucose Level 116 mg/dL (70-99) Calcium Level 8.6 mg/dL (8.5-10.1) Total Bilirubin 0.4 mg/dL (0.2-1.0) Aspartate Amino Transf (AST/SGOT) 34 U/L (15-37) Alanine Aminotransferase (ALT/SGPT) 19 U/L (14-59) Alkaline Phosphatase 98 U/L (46-116) Creatine Kinase 68 U/L (26-192) Troponin I Quantitative < 0.017 ng/mL (0.000-0.055) XD-Tps-M-Type Natriuretic Peptide 94615 pg/mL (0-124) Total Protein 8.1 g/dL (6.4-8.2) Albumin 3.5 g/dL (3.4-5.0) Albumin/Globulin Ratio 0.8 (1.0-1.7) Images Images It helps to think and talk about your own wishes for healthcare in case youre ever not able to tell your loved ones or healthcare team what your wishes are. If you became really sick tomorrow, would your loved ones or healthcare team know what your wishes were? Here are some examples of different sets of goals and health care directives for your conversations: My wish is to use all medical therapies including resuscitation (such as CPR) and artificial life- sustaining treatments (such as machines and medicine) in an intensive care unit, to keep me alive if at all possible. My wish is to live as long as possible, but I dont want attempts to bring me back to life if my heart and breathing stop. I would like full medical care but without using resuscitation or artificial life-sustaining intensive treatments, if these are unlikely to make me live longer or restore me to a certain quality of life. I will accept treatments that try to fix medical problems, but if Im not getting better or going to have a certain quality of life, I would want to switch to focusing only on my comfort and letting my happen naturally. My wish is for healthcare to focus on my comfort and lessen suffering. I would like medical care that focuses only on my quality of life and that allows me to naturally. Consider: What does a good quality of life mean for me? For many people, it is the ability to live independently and tell their own story. I may define it d ifferently. Under what circumstances would I not want to be kept alive by medical treatments, resuscitation, or intensive care? What kind of changes to my health or life might make me change my mind? If I clearly am facing the last chapter of my life, how do I want the story to end? Who do I want to speak for me if I cant speak for myself? Do they understand my preferences? Are they willing to assume the role of my Durable Power of Floor Coverer? Can I change my Goals of Care Designation? Yes, your Goals of Care Designation can be changed at any time. It should be reviewed if: your health condition changes your circumstances change (such as new understanding) you are transferred or admitted to another healthcare setting dpoa review, to pt portal 19 min and question review Tricuspid Valve TR P. Velocity 248cm/s RAP ESTIMATE 3mmHg TR Peak Gr. 25mmHg RVSP 28mmHg LEFT VENTRICLE The left ventricle is normal size. There is moderate concentric left ventricular hypertrophy. Left ventricle systolic function is normal. The Ejection Fraction is estimated at 55-60%. Transmitral Doppler flow pattern is Grade IV-fixed restrictive diastolic dysfunction. RIGHT VENTRICLE The right ventricle is normal size. The right ventricular systolic function is normal. ATRIA The left atrium size is normal. The right atrium is mildly dilated. The interatrial septum is intact with no evidence for an atrial septal defect or patent foramen ovale as noted on 2-D or Doppler imaging. AORTIC VALVE The aortic valve is mildly calcified but opens well. The aortic valve is tri- cuspid. Doppler and Color Flow revealed mild to moderate aortic regurgitation. There is no significant aortic valvular stenosis. MITRAL VALVE The mitral valve is mildly calcified but opens well. There is no evidence of mitral valve prolapse. There is no mitral valve stenosis. Doppler and Color Flow revealed moderate mitral regurgitation. TRICUSPID VALVE The tricuspid valve is normal in structure and function. Doppler and Color Flow revealed mild tricuspid regurgitation. The PA pressure was estimated at 28 mmHg. There is no tricuspid valve stenosis. PULMONIC VALVE The pulmonic valve is not well visualized. Doppler and Color Flow revealed mild pulmonic valvular regurgitation. There is no pulmonic valvular stenosis. GREAT VESSELS The aortic root is normal in size. The IVC is normal in size and collapses >50% with inspiration. PERICARDIAL EFFUSION Moderate pleural effusion noted. There is no evidence of significant pericardial effusion. Critical Notification Critical Value: No <Conclusion> Left ventricle systolic function is normal. The Ejection Fraction is estimated at 55-60%. Transmitral Doppler flow pattern is Grade IV diastolic dysfunction. There is moderate concentric left ventricular hypertrophy. Mild to moderate aortic regurgitation. Moderate mitral regurgitation. Mild tricuspid regurgitation. The PA pressure was estimated at 28 mmHg. There is no evidence of significant pericardial effusion. DICTATED and SIGNED BY: JOSHUA GLASS MD DATE: 10/30/15 1350 CC: FÁTIMA ARELLANO MD; NO PCP; JOSHUA GLASS MD ~ Signed PATIENT: SANJAY COLEMAN ACCOUNT: [id number] : 1950 LOCATION: ER AGE: 70 SEX: F EXAM STATUS: PRE ER ORD. PHYSICIAN: LIA JOHNSON DO REASON: SHORT OF BREATH PROCEDURE: PORTABLE CHEST 1V Exam performed: One view Chest HISTORY: Shortness of breath. DATE OF SERVICE: 03/19/2021. COMPARISON: Two-view chest from October 30, 2015. FINDINGS: Cardiomegaly. Central vascular congestion is noted. There are prominent intersti tial and airspace opacities in both perihilar regions. There is no pleural effusion or pneumothorax. IMPRESSION: Cardiomegaly with CHF Electronically signed by: Cuca Ellison MD (03/19/2021 8:16 AM) [facility] DICTATED and SIGNED BY: CUCA ELLISON MD DATE: 03/19/21 [id number] VTE Prophylaxis Ordered VTE Prophylaxis Devices: Yes VTE Pharmacological Prophylaxi: Yes Assessment/Plan Assessment/Plan Impression: Acute dyspnea ESRD ON DIALYSIS Acute CHF// Central vascular congestion is noted. There are prominent interstitial and airspace opacities in both perihilar regions Grade IV diastolic dysfunction. moderate concentric left ventricular hypertrophy. Mild to moderate aortic regurgitation. Moderate mitral regurgitation. Cardiomegaly Uncontrolled hypertension dietary noncompliance ADMITTED======== cvc bed NEPHROLOGY consult Cardiology consult iv bp control , iv hydralazine 10mg q 4 hrs 10mg prn bp support dvt prophylaxis home meds 32 min cc time Justifications for Admission Other Justification HUY AVILES MD Mar 19, 2021 09:53
[2021-03-19] MEDS ORDERED: FUROSEMIDE 100 MG/10 ML VIAL. IVP ONE (10:00)
[2021-03-19 10:12] LABS: OVALOCYTES FEW; PLT ESTIMATE DECREASED (ADEQUATE)
[2021-03-19] MEDS: CARVEDILOL 12.5 MG TABLET. PO SCH ×2 (11:00→19:26)
[2021-03-19] MEDS: CALCIUM ACETATE 667 MG CAPSULE PO SCH ×2 (12:00→19:26)
[2021-03-19] MEDS ORDERED: FUROSEMIDE 40 MG/4 ML VIAL. ONE (14:18)
[2021-03-19] MEDS: FOLIC/VIT B COMP W-C (RENAL) TABLET. PO SCH (14:25)
--- NOTE | 2021-03-19 14:55 | EKG ---
[facility] [address] [place] [address] Test Date: 2021-03-19 Test Time: 07:54:44 Pat Name: SANJAY COLEMAN Department: Room: Gender: F Spanner Operator: : 1950 Requested By: LIA JOHNSON Order Number: [id number] Reading MD: Measurements Intervals [place] Rate: 87 P: -55 AK: 162 QRS: -8 QRSD: 80 T: 13 QT: 368 QTc: 443 Interpretive Statements SINUS RHYTHM VENTRICULAR PREMATURE COMPLEX(ES) LEFTWARD AXIS QRS(T) CONTOUR ABNORMALITY CONSIDER ANTEROSEPTAL MYOCARDIAL DAMAGE ABNORMAL ECG RI6.01 No previous ECG available for comparison
[2021-03-19 15:12] VITALS: BP 180/85
[2021-03-19] MEDS ORDERED: DIALYSIS PATIENT. MC PRN (15:15)
[2021-03-19] MEDS ORDERED: IV NORMAL SALINE 1000ML BAG 1,000 ML IV PRN ×2 (15:15)
--- NOTE | 2021-03-19 17:12 | PDOC2 ---
HAROON MOJICA RECOATING MACHINE OPERATOR 03/19/21 1712: CARDIAC CONSULT DATE OF CONSULT Date of Consult DATE: 03/19/21 TIME: 17:04 REASON FOR CONSULT Reason for Consult: CHF REFERRING PHYSICIAN Referring Physician: Dr. Corea SOURCE Source: Chart review, Patient HISTORY OF PRESENT ILLNESS HISTORY OF PRESENT ILLNESS This is a 70 yo female who presented secondary to shortness of breath. Has been present for the last week. Has progressively worsened over the last couple of days. Associated with LE edema. No chest pain, palpitations, dizziness, diaphoresis, or nausea/vomiting. No recent fevers or illness. Is ESRD on HD MWF. Reports compliance with HD. Does provide that she has been noncompliance with diet and eating food high in Na recently. PAST MEDICAL HISTORY Cardiovascular: CHF, HTN Heme/Onc: Anemia NOS Psych: Depression Musculoskeletal: Osteoarthritis Renal/: Chronic renal failure (ESRD on HD ) Endocrine: Diabetes PAST SURGICAL HISTORY Past Surgical History: Tubal Ligation, Other (rotator cuff surger, AV fistula ) FAMILY HISTORY Family History: Hypertension SOCIAL HISTORY Smoke: No ALCOHOL: none Drugs: None Lives: Alone CURRENT MEDICATIONS CURRENT MEDICATIONS Current Medications Medications (Trade) Dose Ordered Sig/Erwin Route PRN Reason Start Time Stop Time Status Last Admin Dose Admin Furosemide (Lasix) 60 mg 1X ONCE IVP 03/19/21 10:00 03/19/21 10:01 DC 03/19/21 13:00 Vitamin B Complex/ Vitamin C (Gail-Meliza) 1 tab DAILY08 PO 03/19/21 11:00 03/19/21 14:25 ALLERGIES ALLERGIES: Coded Allergies: No Known Drug Allergies (Unverified , 03/20/16) ROS Review of System 14 point ROS conducted with pertinent positives noted above in HPI PHYSICAL EXAM General: Alert, Oriented X3, Cooperative HEENT: Atraumatic Lungs: Other (crackles ) Heart: Regular rate Abdomen: Soft, No tenderness Extremities: Other (2+ bilateral LE edema ) Skin: No significant lesion Neuro: Normal speech, Sensation intact Psych/Mental Status: Mental status NL, Mood NL MUSCULOSKELETAL: Osteoarthritic changes both hands VITALS/I&O VITALS/I&O: Vital Signs Date Time Temp Pulse Resp B/P (MAP) Pulse Ox O2 Delivery O2 Flow Rate FiO2 03/19/21 15:12 97.6 72 18 180/85 (116) 94 Room Air 97.6 LABS Lab: Laboratory Tests Test 03/19/21 08:13 White Blood Count 5.2 x10^3/uL (4.0-11.0) Red Blood Count 3.51 x10^6/uL (3.50-5.40) Hemoglobin 11.6 g/dL (12.0-15.5) L Hematocrit 35.5 % (36.0-47.0) L Mean Corpuscular Volume 101 fL (79-100) H Mean Corpuscular Hemoglobin 33 pg (25-35) Mean Corpuscular Hemoglobin Concent 33 g/dL (31-37) Red Cell Distribution Width 13.9 % (11.5-14.5) Platelet Count 108 x10^3/uL (140-400) L Neutrophils (%) (Auto) 68 % (31-73) Lymphocytes (%) (Auto) 18 % (24-48) L Monocytes (%) (Auto) 11 % (0-9) H Eosinophils (%) (Auto) 2 % (0-3) Basophils (%) (Auto) 0 % (0-3) Neutrophils # (Auto) 3.5 x10^3/uL (1.8-7.7) Lymphocytes # (Auto) 0.9 x10^3/uL (1.0-4.8) L Monocytes # (Auto) 0.6 x10^3/uL (0.0-1.1) Eosinophils # (Auto) 0.1 x10^3/uL (0.0-0.7) Basophils # (Auto) 0.0 x10^3/uL (0.0-0.2) Platelet Estimate Decreased (ADEQUATE) Large Platelets Present Giant Platelets Present Macrocytosis Slight Ovalocytes Few Sodium Level 139 mmol/L (136-145) Potassium Level 4.7 mmol/L (3.5-5.1) Chloride Level 101 mmol/L (98-107) Carbon Dioxide Level 27 mmol/L (21-32) Anion Gap 11 (6-14) Blood Urea Nitrogen 41 mg/dL (7-20) H Creatinine 8.2 mg/dL (0.6-1.0) H Estimated GFR (Cockcroft-Gault) 5.8 BUN/Creatinine Ratio 5 (6-20) L Glucose Level 116 mg/dL (70-99) H Calcium Level 8.6 mg/dL (8.5-10.1) Total Bilirubin 0.4 mg/dL (0.2-1.0) Aspartate Amino Transferase (AST) 34 U/L (15-37) Alanine Aminotransferase (ALT) 19 U/L (14-59) Alkaline Phosphatase 98 U/L (46-116) Creatine Kinase 68 U/L (26-192) Troponin I Quantitative < 0.017 ng/mL (0.000-0.055) ZR-Aka-H-Type Natriuretic Peptide 23882 pg/mL (0-124) H Total Protein 8.1 g/dL (6.4-8.2) Albumin 3.5 g/dL (3.4-5.0) Albumin/Globulin Ratio 0.8 (1.0-1.7) L Laboratory Tests 03/19/21 08:13 Laboratory Tests 03/19/21 08:13 ECHOCARDIOGRAM ECHOCARDIOGRAM <Conclusion> Left ventricle systolic function is normal. The Ejection Fraction is estimated at 55-60%. Transmitral Doppler flow pattern is Grade IV diastolic dysfunction. There is moderate concentric left ventricular hypertrophy. Mild to moderate aortic regurgitation. Moderate mitral regurgitation. Mild tricuspid regurgitation. The PA pressure was estimated at 28 mmHg. There is no evidence of significant pericardial effusion. DATE: 10/30/15 1350 ASSESSMENT/PLAN ASSESSMENT/PLAN 1. Acute respiratory failure in setting of acute CHF 2. Acute on chronic diastolic CHF 3. Hypertensive urgency 4. Diabetes, II 5. ESRD on HD 6. Dietary noncompliance Recommendations Fluid offloading via HD 2000cc FR 2 Gm Na diet Echo to assess LV systolic function BP control; home therapy resumed Monitor and titrate as warranted Hydralazine IV PRN Plan outpatient ischemic evaluation Supportive care FÁTIMA ARELLANO MD 03/20/21 1146: CARDIAC CONSULT ASSESSMENT/PLAN ASSESSMENT/PLAN Patient seen and examined on 03/19 in HD. I agree with our nurse practitioners assessment and plan. Acute respiratory failure in setting of acute CHF. Patient currently undergoing hemodialysis. We will continue baseline medications. Check an echocardiogram. Acute on chronic diastolic CHF. Continuing baseline medications. Fluid management as per hemodialysis. Hypertensive urgency. Home medications restarted. Hydralazine IV as needed. Diabetes, II ESRD on HD as per the renal service. Dietary noncompliance HAROON MOJICA APRN Mar 19, 2021 17:12 FÁTIMA ARELLANO MD Mar 20, 2021 11:46
[2021-03-19 19:38] VITALS: BP 191/86
[2021-03-19] MEDS ORDERED: ACET500T68 PO (20:56)
[2021-03-19] MEDS ORDERED: CARV25TA PO (20:56)
[2021-03-19] MEDS ORDERED: ZINC30TA2 PO (20:56)
[2021-03-19] MEDS ORDERED: ACET1TAB33 PO (20:56)
[2021-03-19 22:58] VITALS: BP 179/86
[2021-03-19] MEDS: hydrALAZINE 20 MG/ML VIAL. IVP PRN (23:04)
[2021-03-20] MEDS: hydrALAZINE 20 MG/ML VIAL. IVP PRN ×2 (02:55→15:37)
[2021-03-20 03:00] VITALS: BP 200/84
[2021-03-20 07:21] VITALS: BP 180/82
[2021-03-20 07:32] LABS: BASO % 1 % (0-3); EOS # 0.1 x10^3/uL (0.0-0.7); EOS % 2 % (0-3); HEMATOCRIT 32.1 % (36.0-47.0); HEMOGLOBIN 10.6 g/dL (12.0-15.5); LYMPH # 0.7 x10^3/uL (1.0-4.8); LYMPH % 15 % (24-48); MEAN CORPUSCULAR HEMOGLOBIN 33 pg (25-35); MEAN CORPUSCULAR HGB CONC 33 g/dL (31-37); MEAN CORPUSCULAR VOLUME 101 fL (79-100); MONO # 0.6 x10^3/uL (0.0-1.1); MONO % 14 % (0-9); NEUT # 3.1 x10^3/uL (1.8-7.7); NEUT % 68 % (31-73); PLATELET COUNT 100 x10^3/uL (140-400); RED BLOOD COUNT 3.18 x10^6/uL (3.50-5.40); RED CELL DISTRIBUTION WIDTH 14.2 % (11.5-14.5); WHITE BLOOD COUNT 4.6 x10^3/uL (4.0-11.0)
[2021-03-20 08:07] LABS: ALBUMIN 2.8 g/dL (3.4-5.0); ALBUMIN/GLOBULIN RATIO 0.6 (1.0-1.7); CALCIUM 8.6 mg/dL (8.5-10.1); CREATININE 5.4 mg/dL (0.6-1.0); GFR 9.4; POTASSIUM 4.1 mmol/L (3.5-5.1); TOTAL BILIRUBIN 0.5 mg/dL (0.2-1.0); TOTAL PROTEIN 7.3 g/dL (6.4-8.2)
--- NOTE | 2021-03-20 08:32 | PDOC ---
CARDIO Progress Notes Date and Time Date of Service 03/20/21 Time of Evaluation 1315 Subjective Subjective: No Chest Pain, No Palpitations, No Dizziness, Other (WALDEMAR improved ) Vitals Vitals Vital Signs Date Time Temp Pulse Resp B/P (MAP) Pulse Ox O2 Delivery O2 Flow Rate FiO2 03/20/21 07:21 98.7 92 16 180/82 (114) 98 Room Air 98.7 03/19/21 20:30 2.0 Weight Weight [ ] Input and Output Intake and Output Intake and Output 03/20/21 07:00 Intake Total 500 ml Output Total 0 ml Balance 500 ml Intake Oral 500 ml Output Urine Total 0 ml # Voids 2 Laboratory Labs Laboratory Tests Test 03/20/21 06:20 Sodium Level 138 mmol/L (136-145) Potassium Level 4.1 mmol/L (3.5-5.1) Chloride Level 101 mmol/L (98-107) Carbon Dioxide Level 31 mmol/L (21-32) Anion Gap 6 (6-14) Blood Urea Nitrogen 22 mg/dL (7-20) Creatinine 5.4 mg/dL (0.6-1.0) Estimated GFR (Cockcroft-Gault) 9.4 BUN/Creatinine Ratio 4 (6-20) Glucose Level 120 mg/dL (70-99) Calcium Level 8.6 mg/dL (8.5-10.1) Total Bilirubin 0.5 mg/dL (0.2-1.0) Aspartate Amino Transf (AST/SGOT) 26 U/L (15-37) Alanine Aminotransferase (ALT/SGPT) 22 U/L (14-59) Alkaline Phosphatase 81 U/L (46-116) Total Protein 7.3 g/dL (6.4-8.2) Albumin 2.8 g/dL (3.4-5.0) Albumin/Globulin Ratio 0.6 (1.0-1.7) Physical Exam HEENT: Neck Supple W Full Motion Chest: Symmetric LUNGS: Other (diminished bases) Heart: RRR, no thrills Abdomen: Soft N/T Extremities: Other (1+ bilateral LE edema ) Neurology: alert, oriented, follow commands Assessment Assessment 1. Acute respiratory failure in setting of acute CHF 2. Acute on chronic diastolic CHF; better compensated 3. Hypertensive urgency; remains labile 4. Diabetes, II 5. ESRD on HD 6. Dietary noncompliance Recommendations Fluid offloading via HD 2000cc FR 2 Gm Na diet Echo today Increase Coreg and hydralazine for better BP control Plan outpatient ischemic evaluation Supportive care Justicifation of Admission Dx: Justifications for Admission: Justification of Admission Dx: Yes Comments: acute on chronic diastolic CHF HAROON MOJICA APRN Mar 20, 2021 08:32
[2021-03-20] MEDS: FOLIC/VIT B COMP W-C (RENAL) TABLET. PO SCH (09:14)
[2021-03-20] MEDS: CALCIUM ACETATE 667 MG CAPSULE PO SCH ×3 (09:14→17:37)
[2021-03-20] MEDS: CARVEDILOL 12.5 MG TABLET. PO SCH ×2 (09:16→17:38)
--- NOTE | 2021-03-20 09:42 | PDOC ---
PROGRESS NOTES Date of Service: DATE: 03/20/21 TIME: 09:42 Chief Complaint Chief Complaint VTE Prophylaxis Ordered VTE Prophylaxis Devices: Yes VTE Pharmacological Prophylaxi: Yes Assessment/Plan Assessment/Plan Impression: Acute dyspnea ESRD ON DIALYSIS Acute CHF// Central vascular congestion is noted. There are prominent interstitial and airspace opacities in both perihilar regions Grade IV diastolic dysfunction. moderate concentric left ventricular hypertr ophy. Mild to moderate aortic regurgitation. Moderate mitral regurgitation. Cardiomegaly Uncontrolled hypertension dietary noncompliance ADMITTED======== cvc bed NEPHROLOGY consult Cardiology consult iv bp control , iv hydralazine 10mg q 4 hrs 10mg prn bp support dvt prophylaxis home meds 32 min cc time History of Present Illness History of Present Illness Identification/Chief Complaint Chief Complaint shortness of breath, may have eaten too much salt over the weekend, c/o chest tightness, discomfort ? missed dialysis, inc difficulty breathing when supine History of Present Illness History of Present Illness 70 yr old female Seen in ER WITH acute CHF, Volume overload c/o chest tightness, discomfort noted inc difficulty breathing when supine troponin i neg x 1 , admits dietary noncompliance /// nephrology and cardiology consulted known ESRD ON DIALYSIS// Acute CHF// Central vascular congestion is noted. There are prominent interstitial and airspace opacities in both perihilar regions recent echo c/w Grade IV diastolic dysfunction. moderate concentric left ventricular hypertrophy. Mild to moderate aortic regurgitation. Moderate mitral regurgitation. Uncontrolled hypertension noted on admit Past Medical History Past Medical History Past Medical History Past Medical History: Diabetes-Type II, Hypertension, Renal Failure Additional Past Medical Histor: PSORIATIC ARTHRITIS, DIALYSIS Past Surgical History: , Tubal ligation Additional Past Surgical Histo: L ROTATOR CUFF Smoking Status: Never Smoker Alcohol Use: None Drug Use: None PAST MEDICAL HISTORY: End-stage renal disease, on dialysis; hyperparathyroidism; diabetes mellitus; chronic low back pain; anemia and hypertension. FAMILY HISTORY: Hypertension. SOCIAL HISTORY: No toxic habits. FHX HTN Cardiovascular: HTN GI: Constipation Heme/Onc: Anemia NOS Hepatobiliary: No pertinent hx Psych: No pertinent hx, Anxiety Musculoskeletal: Osteoarthritis Renal/: Chronic renal failure Endocrine: Diabetes, Hyperparathyroidism Past Surgical History Past Surgical History: , Tubal Ligation, Other Family History Family History: Hypertension Social History Smoke: <1 pack per day ALCOHOL: none Drugs: None Current Problem List Problem List Problems Medical Problems: (1) Acute CHF Status: Acute (2) Acute dyspnea Status: Acute (3) Cardiomegaly Status: Acute (4) Uncontrolled hypertension Status: Acute Current Medications Current Medications Active Scripts Active Aldactone (Spironolactone) 25 Mg Tablet 1 Tab PO DAILY Coreg (Carvedilol) 12.5 Mg Tablet 1 Tab PO BID Norvasc (Amlodipine Besylate) 10 Mg Tablet 10 Mg PO DAILY Phoslo (Calcium Acetate) 667 Mg Capsule 667 Mg PO TIDWMEALS Reported Hydralazine Hcl 50 Mg Tablet 1 Tab PO BID Renal Vitamin Tablet (Folic Acid/Vit Bcomp,C) 0.8 Mg Tablet 0.8 Mg PO Allergies Allergies: Coded Allergies: No Known Drug Allergies (Unverified , 03/20/16) ROS General: YES: Fatigue; No: Chills, Night Sweats, Malaise, Appetite, Other PSYCHOLOGICAL ROS: No: Anxiety, Behavioral Disorder, Concentration difficultie, Decreased libido, Depression, Disorientation, Hallucinations, Hostility, Irrit ablity, Memory difficulties, Mood Swings, Obsessive thoughts, Physical abuse, Sexual abuse, Sleep disturbances, Suicidal ideation, Other Eyes: No Blurry vision, No Decreased vision, No Double vision, No Dry eyes, No Excessive tearing, No Eye Pain, No Itchy Eyes, No Loss of vision, No Photophobia, No Scotomata, No Uses contacts, No Uses glasses, No Other HEENT: No: Heacaches, Visual Changes, Hearing change, Nasal congestion, Nasal discharge, Oral lesions, Sinus pain, Sore Throat, Epistaxis, Sneezing, Snoring, Tinnitus, Vertigo, Vocal changes, Other ALLERGY AND IMMUNOLOGY: No: Hives, Insect Bite Sensitivity, Itchy/Watery Eyes, Nasal Congestion, Post Nasal Drip, Seasonal Allergies, Other Hematological and Lymphatic: No: Bleeding Problems, Blood Clots, Blood Transfusions, Brusing, Night Sweats, Pallor, Swollen Lymph Nodes, Other ENDOCRINE: No: Breast Changes, Galactorrhea, Hair Pattern Changes, Hot Flashes, Malaise/lethargy, Mood Swings, Palpitations, Polydipsia/polyuria, Skin Changes, Temperature Intolerance, Unexpected Weight Changes, Other Breast: No New/Changing Breast Lumps, No Nipple changes, No Nipple discharge, No Other Respiratory: YES: Shortness of breath, SOB with excertion Cardiovascular: yes Orthopnea; No Chest Pain, No Palpitations, No Paroxysmal Noc. Dyspnea, No Edema, No Lt Headedness, No Other Gastrointestinal: No Nausea, No Vomiting, No Abdominal Pain, No Diarrhea, No Constipation, No Melena, No Hematochezia, No Other Genitourinary: No Dysuria, No Frequency, No Incontinence, No Hematuria, No Retention, No Discharge, No Urgency, No Pain, No Flank Pain, No Other, No , No , No , No , No , No , No Musculoskeletal: Yes Joint Stiffness; No Gait Disturbance, No Joint Pain, No Joint Swelling, No Muscle Pain, No Muscular Weakness, No Pain In:, No Swelling In:, No Other Neurological: No Behavorial Changes, No Bowel/Bladder ControlChng, No Confusion, No Dizziness, No Gait Disturbance, No Headaches, No Impaired Coord/balance, No Memory Loss, No Numbness/Tingling, No Seizures, No Speech Problems, No Tremors, No Visual Changes, No Weakness, No Other Skin: No Dry Skin, No Eczema, No Hair Changes, No Lumps, No Mole Changes, No Mottling, No Nail Changes, No Pruritus, No Rash, No Skin Lesion Changes, No Other, No Acne 03-20 Acute dyspnea ESRD ON DIALYSIS Acute CHF// Central vascular congestion is noted. There are prominent interstitial and airspace opacities in both perihilar regions Grade IV diastolic dysfunction. moderate concentric left ventricular hypertrophy. Mild to moderate aortic regurgitation. Moderate mitral regurgitation. Cardiomegaly Uncontrolled hypertension dietary noncompliance cvc bed NEPHROLOGY consult Cardiology consult iv bp control , iv hydralazine 10mg q 4 hrs 10mg prn bp support dvt prophylaxis home meds d/w RN Vitals Vitals Vital Signs Date Time Temp Pulse Resp B/P (MAP) Pulse Ox O2 Delivery O2 Flow Rate FiO2 03/20/21 09:16 92 180/82 03/20/21 07:21 98.7 16 98 Room Air 98.7 03/19/21 20:30 2.0 Physical Exam General: Alert, Oriented X3, Cooperative, No acute distress Heart: Regular rate, Normal S1, Normal S2 Lungs: Clear Abdomen: Soft, No tenderness Extremities: Other (2+ bilateral LE edema ) Skin: No significant lesion Labs LABS Laboratory Tests Test 03/20/21 06:20 White Blood Count 4.6 x10^3/uL (4.0-11.0) Red Blood Count 3.18 x10^6/uL (3.50-5.40) Hemoglobin 10.6 g/dL (12.0-15.5) Hematocrit 32.1 % (36.0-47.0) Mean Corpuscular Volume 101 fL (79-100) Mean Corpuscular Hemoglobin 33 pg (25-35) Mean Corpuscular Hemoglobin Concent 33 g/dL (31-37) Red Cell Distribution Width 14.2 % (11.5-14.5) Platelet Count 100 x10^3/uL (140-400) Neutrophils (%) (Auto) 68 % (31-73) Lymphocytes (%) (Auto) 15 % (24-48) Monocytes (%) (Auto) 14 % (0-9) Eosinophils (%) (Auto) 2 % (0-3) Basophils (%) (Auto) 1 % (0-3) Neutrophils # (Auto) 3.1 x10^3/uL (1.8-7.7) Lymphocytes # (Auto) 0.7 x10^3/uL (1.0-4.8) Monocytes # (Auto) 0.6 x10^3/uL (0.0-1.1) Eosinophils # (Auto) 0.1 x10^3/uL (0.0-0.7) Basophils # (Auto) 0.0 x10^3/uL (0.0-0.2) Sodium Level 138 mmol/L (136-145) Potassium Level 4.1 mmol/L (3.5-5.1) Chloride Level 101 mmol/L (98-107) Carbon Dioxide Level 31 mmol/L (21-32) Anion Gap 6 (6-14) Blood Urea Nitrogen 22 mg/dL (7-20) Creatinine 5.4 mg/dL (0.6-1.0) Estimated GFR (Cockcroft-Gault) 9.4 BUN/Creatinine Ratio 4 (6-20) Glucose Level 120 mg/dL (70-99) Calcium Level 8.6 mg/dL (8.5-10.1) Total Bilirubin 0.5 mg/dL (0.2-1.0) Aspartate Amino Transf (AST/SGOT) 26 U/L (15-37) Alanine Aminotransferase (ALT/SGPT) 22 U/L (14-59) Alkaline Phosphatase 81 U/L (46-116) Total Protein 7.3 g/dL (6.4-8.2) Albumin 2.8 g/dL (3.4-5.0) Albumin/Globulin Ratio 0.6 (1.0-1.7) Triglycerides Level 82 mg/dL (0-150) Cholesterol Level 146 mg/dL (0-200) LDL Cholesterol, Calculated 82 mg/dL (0-100) VLDL Cholesterol, Calculated 16 mg/dL (0-40) Non-HDL Cholesterol Calculated 98 mg/dL (0-129) HDL Cholesterol 48 mg/dL (40-60) Cholesterol/HDL Ratio 3.0 Thyroid Stimulating Hormone (TSH) 0.764 uIU/mL (0.358-3.74) Assessment and Plan Assessmemt and Plan Problems Medical Problems: (1) Acute CHF Status: Acute (2) Acute dyspnea Status: Acute (3) Cardiomegaly Status: Acute (4) Uncontrolled hypertension Status: Acute Comment Review of Relevant I have reviewed the following items waqas (where applicable) has been applied. Labs Laboratory Tests Test 03/19/21 08:13 03/20/21 06:20 White Blood Count 5.2 x10^3/uL (4.0-11.0) 4.6 x10^3/uL (4.0-11.0) Red Blood Count 3.51 x10^6/uL (3.50-5.40) 3.18 x10^6/uL (3.50-5.40) Hemoglobin 11.6 g/dL (12.0-15.5) 10.6 g/dL (12.0-15.5) Hematocrit 35.5 % (36.0-47.0) 32.1 % (36.0-47.0) Mean Corpuscular Volume 101 fL (79-100) 101 fL (79-100) Mean Corpuscular Hemoglobin 33 pg (25-35) 33 pg (25-35) Mean Corpuscular Hemoglobin Concent 33 g/dL (31-37) 33 g/dL (31-37) Red Cell Distribution Width 13.9 % (11.5-14.5) 14.2 % (11.5-14.5) Platelet Count 108 x10^3/uL (140-400) 100 x10^3/uL (140-400) Neutrophils (%) (Auto) 68 % (31-73) 68 % (31-73) Lymphocytes (%) (Auto) 18 % (24-48) 15 % (24-48) Monocytes (%) (Auto) 11 % (0-9) 14 % (0-9) Eosinophils (%) (Auto) 2 % (0-3) 2 % (0-3) Basophils (%) (Auto) 0 % (0-3) 1 % (0-3) Neutrophils # (Auto) 3.5 x10^3/uL (1.8-7.7) 3.1 x10^3/uL (1.8-7.7) Lymphocytes # (Auto) 0.9 x10^3/uL (1.0-4.8) 0.7 x10^3/uL (1.0-4.8) Monocytes # (Auto) 0.6 x10^3/uL (0.0-1.1) 0.6 x10^3/uL (0.0-1.1) Eosinophils # (Auto) 0.1 x10^3/uL (0.0-0.7) 0.1 x10^3/uL (0.0-0.7) Basophils # (Auto) 0.0 x10^3/uL (0.0-0.2) 0.0 x10^3/uL (0.0-0.2) Platelet Estimate Decreased (ADEQUATE) Large Platelets Present Giant Platelets Present Macrocytosis Slight Ovalocytes Few Sodium Level 139 mmol/L (136-145) 138 mmol/L (136-145) Potassium Level 4.7 mmol/L (3.5-5.1) 4.1 mmol/L (3.5-5.1) Chloride Level 101 mmol/L (98-107) 101 mmol/L (98-107) Carbon Dioxide Level 27 mmol/L (21-32) 31 mmol/L (21-32) Anion Gap 11 (6-14) 6 (6-14) Blood Urea Nitrogen 41 mg/dL (7-20) 22 mg/dL (7-20) Creatinine 8.2 mg/dL (0.6-1.0) 5.4 mg/dL (0.6-1.0) Estimated GFR (Cockcroft-Gault) 5.8 9.4 BUN/Creatinine Ratio 5 (6-20) 4 (6-20) Glucose Level 116 mg/dL (70-99) 120 mg/dL (70-99) Calcium Level 8.6 mg/dL (8.5-10.1) 8.6 mg/dL (8.5-10.1) Total Bilirubin 0.4 mg/dL (0.2-1.0) 0.5 mg/dL (0.2-1.0) Aspartate Amino Transf (AST/SGOT) 34 U/L (15-37) 26 U/L (15-37) Alanine Aminotransferase (ALT/SGPT) 19 U/L (14-59) 22 U/L (14-59) Alkaline Phosphatase 98 U/L (46-116) 81 U/L (46-116) Creatine Kinase 68 U/L (26-192) Troponin I Quantitative < 0.017 ng/mL (0.000-0.055) KL-Rzs-K-Type Natriuretic Peptide 16257 pg/mL (0-124) Total Protein 8.1 g/dL (6.4-8.2) 7.3 g/dL (6.4-8.2) Albumin 3.5 g/dL (3.4-5.0) 2.8 g/dL (3.4-5.0) Albumin/Globulin Ratio 0.8 (1.0-1.7) 0.6 (1.0-1.7) Triglycerides Level 82 mg/dL (0-150) Cholesterol Level 146 mg/dL (0-200) LDL Cholesterol, Calculated 82 mg/dL (0-100) VLDL Cholesterol, Calculated 16 mg/dL (0-40) Non-HDL Cholesterol Calculated 98 mg/dL (0-129) HDL Cholesterol 48 mg/dL (40-60) Cholesterol/HDL Ratio 3.0 Thyroid Stimulating Hormone (TSH) 0.764 uIU/mL (0.358-3.74) Laboratory Tests Test 03/20/21 06:20 White Blood Count 4.6 x10^3/uL (4.0-11.0) Red Blood Count 3.18 x10^6/uL (3.50-5.40) Hemoglobin 10.6 g/dL (12.0-15.5) Hematocrit 32.1 % (36.0-47.0) Mean Corpuscular Volume 101 fL (79-100) Mean Corpuscular Hemoglobin 33 pg (25-35) Mean Corpuscular Hemoglobin Concent 33 g/dL (31-37) Red Cell Distribution Width 14.2 % (11.5-14.5) Platelet Count 100 x10^3/uL (140-400) Neutrophils (%) (Auto) 68 % (31-73) Lymphocytes (%) (Auto) 15 % (24-48) Monocytes (%) (Auto) 14 % (0-9) Eosinophils (%) (Auto) 2 % (0-3) Basophils (%) (Auto) 1 % (0-3) Neutrophils # (Auto) 3.1 x10^3/uL (1.8-7.7) Lymphocytes # (Auto) 0.7 x10^3/uL (1.0-4.8) Monocytes # (Auto) 0.6 x10^3/uL (0.0-1.1) Eosinophils # (Auto) 0.1 x10^3/uL (0.0-0.7) Basophils # (Auto) 0.0 x10^3/uL (0.0-0.2) Sodium Level 138 mmol/L (136-145) Potassium Level 4.1 mmol/L (3.5-5.1) Chloride Level 101 mmol/L (98-107) Carbon Dioxide Level 31 mmol/L (21-32) Anion Gap 6 (6-14) Blood Urea Nitrogen 22 mg/dL (7-20) Creatinine 5.4 mg/dL (0.6-1.0) Estimated GFR (Cockcroft-Gault) 9.4 BUN/Creatinine Ratio 4 (6-20) Glucose Level 120 mg/dL (70-99) Calcium Level 8.6 mg/dL (8.5-10.1) Total Bilirubin 0.5 mg/dL (0.2-1.0) Aspartate Amino Transf (AST/SGOT) 26 U/L (15-37) Alanine Aminotransferase (ALT/SGPT) 22 U/L (14-59) Alkaline Phosphatase 81 U/L (46-116) Total Protein 7.3 g/dL (6.4-8.2) Albumin 2.8 g/dL (3.4-5.0) Albumin/Globulin Ratio 0.6 (1.0-1.7) Triglycerides Level 82 mg/dL (0-150) Cholesterol Level 146 mg/dL (0-200) LDL Cholesterol, Calculated 82 mg/dL (0-100) VLDL Cholesterol, Calculated 16 mg/dL (0-40) Non-HDL Cholesterol Calculated 98 mg/dL (0-129) HDL Cholesterol 48 mg/dL (40-60) Cholesterol/HDL Ratio 3.0 Thyroid Stimulating Hormone (TSH) 0.764 uIU/mL (0.358-3.74) Medications Current Medications Furosemide (Lasix) 60 mg 1X ONCE IVP Last administered on 03/19/21at 13:00; Start 03/19/21 at 10:00; Stop 03/19/21 at 10:01; Status DC Amlodipine Besylate (Norvasc) 10 mg DAILY PO Last administered on 03/20/21at 09:14; Start 03/19/21 at 11:00 Calcium Acetate (Phoslo) 667 mg TIDWMEALS PO Last administered on 03/20/21at 09:14; Start 03/19/21 at 12:00 Carvedilol (Coreg) 12.5 mg BIDWMEALS PO Last administered on 03/19/21at 19:26; Start 03/19/21 at 11:00; Stop 03/20/21 at 08:31; Status DC Vitamin B Complex/ Vitamin C (Gail-Emliza) 1 tab DAILY08 PO Last administered on 03/20/21at 09:14; Start 03/19/21 at 11:00 Hydralazine HCl (Apresoline) 50 mg BID PO Last administered on 03/19/21at 20:11; Start 03/19/21 at 11:00; Stop 03/20/21 at 08:31; Status DC Furosemide (Lasix) 40 mg STK-MED ONCE .ROUTE ; Start 03/19/21 at 14:18; Stop 03/19/21 at 14:18; Status DC Sodium Chloride 1,000 ml @ 1,000 mls/hr Q1H PRN IV hypotension; Start 03/19/21 at 15:15; Stop 03/19/21 at 21:14; Status DC Sodium Chloride 1,000 ml @ 400 mls/hr Q2H30M PRN IV PATENCY; Start 03/19/21 at 15:15; Stop 03/20/21 at 06:26; Status DC Info (PHARMACY MONITORING -- do not chart) 1 each PRN DAILY PRN MC SEE COMMENTS; Start 03/19/21 at 15:15 Hydralazine HCl (Apresoline Inj) 10 mg PRN Q4HRS PRN IVP ELEVATED BP, SEE COMMENTS Last administered on 03/20/21at 02:55; Start 03/19/21 at 16:45 Carvedilol (Coreg) 25 mg BIDWMEALS PO Last administered on 03/20/21at 09:16; Start 03/20/21 at 08:30 Hydralazine HCl (Apresoline) 100 mg BID PO Last administered on 03/20/21at 09:15; Start 03/20/21 at 09:00 Active Scripts Active Aldactone (Spironolactone) 25 Mg Tablet 1 Tab PO DAILY Norvasc (Amlodipine Besylate) 10 Mg Tablet 10 Mg PO DAILY Phoslo (Calcium Acetate) 667 Mg Capsule 667 Mg PO TIDWMEALS Reported Acetaminophen 500 Mg Tablet 1 Tab PO PRN Q6HRS PRN 15 Days Acetaminophen-Cod #3 Tablet (Acetaminophen/Codeine Phosphate) 1 Each Tablet 1 Tab PO PRN Q6HRS PRN Zinc (Zinc Gluconate) 30 Mg Tablet 30 Mg PO DAILY Coreg (Carvedilol) 25 Mg Tablet 25 Mg PO BIDWMEALS Hydralazine Hcl 50 Mg Tablet 1 Tab PO TID Renal Vitamin Tablet (Folic Acid/Vit Bcomp,C) 0.8 Mg Tablet 0.8 Mg PO Vitals/I & O Vital Sign - Last 24 Hours 03/19/21 03/19/21 03/19/21 03/19/21 15:12 15:13 19:26 19:38 Temp 97.6 98.8 97.6 98.8 Pulse 72 81 84 Resp 18 18 B/P (MAP) 180/85 (116) 208/89 191/86 (121) Pulse Ox 94 95 O2 Delivery Room Air Room Air Room Air 03/19/21 03/19/21 03/19/21 03/19/21 20:11 20:30 22:58 23:04 Temp 98.9 98.9 Pulse 84 78 78 Resp 20 B/P (MAP) 191/86 179/86 (117) 179/86 Pulse Ox 99 O2 Delivery Nasal Cannula Room Air O2 Flow Rate 2.0 03/20/21 03/20/21 03/20/21 03/20/21 02:55 03:00 07:21 09:14 Temp 99.0 98.7 99.0 98.7 Pulse 92 90 92 92 Resp 16 16 B/P (MAP) 200/84 (122) 180/82 (114) 180/82 Pulse Ox 100 98 O2 Delivery Room Air Room Air 03/20/21 03/20/21 09:15 09:16 Pulse 92 92 B/P (MAP) 180/82 180/82 Intake and Output 03/19/21 03/19/21 03/20/21 15:00 23:00 07:00 Intake Total 200 ml 300 ml Output Total 0 ml Balance 200 ml 300 ml Justicifation of Admission Dx: Justifications for Admission: Justification of Admission Dx: Yes CHF: Hemodynamic Instability Sepsis: Hypoxemia HUY AVILES MD Mar 20, 2021 09:42
--- NOTE | 2021-03-20 10:41 | PDOC2 ---
CONSULT Date of Consult Date of Consult DATE: 03/20/21 TIME: 10:35 Reason for Consult Reason for Consult: SOB AND ESRD Referring Physician Referring Physician: STEFAN Identification/Chief Complaint Chief Complaint SOB Source Source: Chart review, Patient History of Present Illness Reason for Visit: THIS IS A 70 YR OLD WITH SOB. UNDERGOING CARDIOLOGY EVALUATION. HAS HX OF ESRD AND HAS OP HD ON MWF. HAS A LEFT ARM BB AVF FOR HER HD. LABS ARE C/W ESRD. HISTORY OF PRESENT ILLNESS. HAS ESRD DUE TO HTN HX. NO OTHER HX. HAS BEEN ON HD FOR 4 YEARS Past Medical History Cardiovascular: CHF, HTN GI: Constipation Heme/Onc: Anemia NOS Hepatobiliary: No pertinent hx Psych: Depression Musculoskeletal: Osteoarthritis Renal/: Chronic renal failure (ESRD on HD ) Endocrine: Diabetes Past Surgical History Past Surgical History: Tubal Ligation, Other (rotator cuff surger, AV fistula ) Family History Family History: Hypertension Social History No ALCOHOL: none Drugs: None Lives: Alone Current Problem List Problem List Problems Medical Problems: (1) Acute CHF Status: Acute (2) Acute dyspnea Status: Acute (3) Cardiomegaly Status: Acute (4) Uncontrolled hypertension Status: Acute Current Medications Current Medications Current Medications Furosemide (Lasix) 60 mg 1X ONCE IVP Last administered on 03/19/21at 13:00; Start 03/19/21 at 10:00; Stop 03/19/21 at 10:01; Status DC Amlodipine Besylate (Norvasc) 10 mg DAILY PO Last administered on 03/20/21at 09:14; Start 03/19/21 at 11:00 Calcium Acetate (Phoslo) 667 mg TIDWMEALS PO Last administered on 03/20/21at 09:14; Start 03/19/21 at 12:00 Carvedilol (Coreg) 12.5 mg BIDWMEALS PO Last administered on 03/19/21at 19:26; Start 03/19/21 at 11:00; Stop 03/20/21 at 08:31; Status DC Vitamin B Complex/ Vitamin C (Gail-Meliza) 1 tab DAILY08 PO Last administered on 03/20/21at 09:14; Start 03/19/21 at 11:00 Hydralazine HCl (Apresoline) 50 mg BID PO Last administered on 03/19/21at 20:11; Start 03/19/21 at 11:00; Stop 03/20/21 at 08:31; Status DC Furosemide (Lasix) 40 mg STK-MED ONCE .ROUTE ; Start 03/19/21 at 14:18; Stop 03/19/21 at 14:18; Status DC Sodium Chloride 1,000 ml @ 1,000 mls/hr Q1H PRN IV hypotension; Start 03/19/21 at 15:15; Stop 03/19/21 at 21:14; Status DC Sodium Chloride 1,000 ml @ 400 mls/hr Q2H30M PRN IV PATENCY; Start 03/19/21 at 15:15; Stop 03/20/21 at 06:26; Status DC Info (PHARMACY MONITORING -- do not chart) 1 each PRN DAILY PRN MC SEE COMMENTS; Start 03/19/21 at 15:15 Hydralazine HCl (Apresoline Inj) 10 mg PRN Q4HRS PRN IVP ELEVATED BP, SEE COMMENTS Last administered on 03/20/21at 02:55; Start 03/19/21 at 16:45 Carvedilol (Coreg) 25 mg BIDWMEALS PO Last administered on 03/20/21at 09:16; Start 03/20/21 at 08:30 Hydralazine HCl (Apresoline) 100 mg BID PO Last administered on 03/20/21at 09:15; Start 03/20/21 at 09:00 Active Scripts Active Aldactone (Spironolactone) 25 Mg Tablet 1 Tab PO DAILY Norvasc (Amlodipine Besylate) 10 Mg Tablet 10 Mg PO DAILY Phoslo (Calcium Acetate) 667 Mg Capsule 667 Mg PO TIDWMEALS Reported Acetaminophen 500 Mg Tablet 1 Tab PO PRN Q6HRS PRN 15 Days Acetaminophen-Cod #3 Tablet (Acetaminophen/Codeine Phosphate) 1 Each Tablet 1 Tab PO PRN Q6HRS PRN Zinc (Zinc Gluconate) 30 Mg Tablet 30 Mg PO DAILY Coreg (Carvedilol) 25 Mg Tablet 25 Mg PO BIDWMEALS Hydralazine Hcl 50 Mg Tablet 1 Tab PO TID Renal Vitamin Tablet (Folic Acid/Vit Bcomp,C) 0.8 Mg Tablet 0.8 Mg PO Allergies Allergies: Coded Allergies: No Known Drug Allergies (Unverified , 03/20/16) ROS General: YES: Fatigue PSYCHOLOGICAL ROS: YES: Anxiety Eyes: Yes Decreased vision Respiratory: YES: Cough, Shortness of breath Cardiovascular: yes Edema Gastrointestinal: Yes Constipation Genitourinary: YES Other (ANURIA) Musculoskeletal: Yes Muscular Weakness Neurological: Yes Weakness Skin: Yes Dry Skin Physical Exam Physical Exam L ARM AVF WITH A GOOD THRILL AND BRUIT General: Alert, Oriented X3, Cooperative, mild distress HEENT: Atraumatic, PERRLA Lungs: Normal air movement Heart: Regular rate Abdomen: Normal bowel sounds, Soft, No tenderness Extremities: No cyanosis Skin: No breakdown Neuro: Normal speech Psych/Mental Status: Mental status NL, Mood NL MUSCULOSKELETAL: No joint tenderness, No deformity Vitals VITALS Vital Signs Date Time Temp Pulse Resp B/P (MAP) Pulse Ox O2 Delivery O2 Flow Rate FiO2 03/20/21 09:16 92 180/82 03/20/21 08:00 Room Air 03/20/21 07:21 98.7 16 98 98.7 03/19/21 20:30 2.0 Labs Labs Laboratory Tests Test 03/19/21 08:13 03/20/21 06:20 White Blood Count 5.2 x10^3/uL (4.0-11.0) 4.6 x10^3/uL (4.0-11.0) Red Blood Count 3.51 x10^6/uL (3.50-5.40) 3.18 x10^6/uL (3.50-5.40) Hemoglobin 11.6 g/dL (12.0-15.5) 10.6 g/dL (12.0-15.5) Hematocrit 35.5 % (36.0-47.0) 32.1 % (36.0-47.0) Mean Corpuscular Volume 101 fL (79-100) 101 fL (79-100) Mean Corpuscular Hemoglobin 33 pg (25-35) 33 pg (25-35) Mean Corpuscular Hemoglobin Concent 33 g/dL (31-37) 33 g/dL (31-37) Red Cell Distribution Width 13.9 % (11.5-14.5) 14.2 % (11.5-14.5) Platelet Count 108 x10^3/uL (140-400) 100 x10^3/uL (140-400) Neutrophils (%) (Auto) 68 % (31-73) 68 % (31-73) Lymphocytes (%) (Auto) 18 % (24-48) 15 % (24-48) Monocytes (%) (Auto) 11 % (0-9) 14 % (0-9) Eosinophils (%) (Auto) 2 % (0-3) 2 % (0-3) Basophils (%) (Auto) 0 % (0-3) 1 % (0-3) Neutrophils # (Auto) 3.5 x10^3/uL (1.8-7.7) 3.1 x10^3/uL (1.8-7.7) Lymphocytes # (Auto) 0.9 x10^3/uL (1.0-4.8) 0.7 x10^3/uL (1.0-4.8) Monocytes # (Auto) 0.6 x10^3/uL (0.0-1.1) 0.6 x10^3/uL (0.0-1.1) Eosinophils # (Auto) 0.1 x10^3/uL (0.0-0.7) 0.1 x10^3/uL (0.0-0.7) Basophils # (Auto) 0.0 x10^3/uL (0.0-0.2) 0.0 x10^3/uL (0.0-0.2) Platelet Estimate Decreased (ADEQUATE) Large Platelets Present Giant Platelets Present Macrocytosis Slight Ovalocytes Few Sodium Level 139 mmol/L (136-145) 138 mmol/L (136-145) Potassium Level 4.7 mmol/L (3.5-5.1) 4.1 mmol/L (3.5-5.1) Chloride Level 101 mmol/L (98-107) 101 mmol/L (98-107) Carbon Dioxide Level 27 mmol/L (21-32) 31 mmol/L (21-32) Anion Gap 11 (6-14) 6 (6-14) Blood Urea Nitrogen 41 mg/dL (7-20) 22 mg/dL (7-20) Creatinine 8.2 mg/dL (0.6-1.0) 5.4 mg/dL (0.6-1.0) Estimated GFR (Cockcroft-Gault) 5.8 9.4 BUN/Creatinine Ratio 5 (6-20) 4 (6-20) Glucose Level 116 mg/dL (70-99) 120 mg/dL (70-99) Calcium Level 8.6 mg/dL (8.5-10.1) 8.6 mg/dL (8.5-10.1) Total Bilirubin 0.4 mg/dL (0.2-1.0) 0.5 mg/dL (0.2-1.0) Aspartate Amino Transf (AST/SGOT) 34 U/L (15-37) 26 U/L (15-37) Alanine Aminotransferase (ALT/SGPT) 19 U/L (14-59) 22 U/L (14-59) Alkaline Phosphatase 98 U/L (46-116) 81 U/L (46-116) Creatine Kinase 68 U/L (26-192) Troponin I Quantitative < 0.017 ng/mL (0.000-0.055) AN-Goe-M-Type Natriuretic Peptide 55799 pg/mL (0-124) Total Protein 8.1 g/dL (6.4-8.2) 7.3 g/dL (6.4-8.2) Albumin 3.5 g/dL (3.4-5.0) 2.8 g/dL (3.4-5.0) Albumin/Globulin Ratio 0.8 (1.0-1.7) 0.6 (1.0-1.7) Triglycerides Level 82 mg/dL (0-150) Cholesterol Level 146 mg/dL (0-200) LDL Cholesterol, Calculated 82 mg/dL (0-100) VLDL Cholesterol, Calculated 16 mg/dL (0-40) Non-HDL Cholesterol Calculated 98 mg/dL (0-129) HDL Cholesterol 48 mg/dL (40-60) Cholesterol/HDL Ratio 3.0 Thyroid Stimulating Hormone (TSH) 0.764 uIU/mL (0.358-3.74) Laboratory Tests Test 03/20/21 06:20 White Blood Count 4.6 x10^3/uL (4.0-11.0) Red Blood Count 3.18 x10^6/uL (3.50-5.40) Hemoglobin 10.6 g/dL (12.0-15.5) Hematocrit 32.1 % (36.0-47.0) Mean Corpuscular Volume 101 fL (79-100) Mean Corpuscular Hemoglobin 33 pg (25-35) Mean Corpuscular Hemoglobin Concent 33 g/dL (31-37) Red Cell Distribution Width 14.2 % (11.5-14.5) Platelet Count 100 x10^3/uL (140-400) Neutrophils (%) (Auto) 68 % (31-73) Lymphocytes (%) (Auto) 15 % (24-48) Monocytes (%) (Auto) 14 % (0-9) Eosinophils (%) (Auto) 2 % (0-3) Basophils (%) (Auto) 1 % (0-3) Neutrophils # (Auto) 3.1 x10^3/uL (1.8-7.7) Lymphocytes # (Auto) 0.7 x10^3/uL (1.0-4.8) Monocytes # (Auto) 0.6 x10^3/uL (0.0-1.1) Eosinophils # (Auto) 0.1 x10^3/uL (0.0-0.7) Basophils # (Auto) 0.0 x10^3/uL (0.0-0.2) Sodium Level 138 mmol/L (136-145) Potassium Level 4.1 mmol/L (3.5-5.1) Chloride Level 101 mmol/L (98-107) Carbon Dioxide Level 31 mmol/L (21-32) Anion Gap 6 (6-14) Blood Urea Nitrogen 22 mg/dL (7-20) Creatinine 5.4 mg/dL (0.6-1.0) Estimated GFR (Cockcroft-Gault) 9.4 BUN/Creatinine Ratio 4 (6-20) Glucose Level 120 mg/dL (70-99) Calcium Level 8.6 mg/dL (8.5-10.1) Total Bilirubin 0.5 mg/dL (0.2-1.0) Aspartate Amino Transf (AST/SGOT) 26 U/L (15-37) Alanine Aminotransferase (ALT/SGPT) 22 U/L (14-59) Alkaline Phosphatase 81 U/L (46-116) Total Protein 7.3 g/dL (6.4-8.2) Albumin 2.8 g/dL (3.4-5.0) Albumin/Globulin Ratio 0.6 (1.0-1.7) Triglycerides Level 82 mg/dL (0-150) Cholesterol Level 146 mg/dL (0-200) LDL Cholesterol, Calculated 82 mg/dL (0-100) VLDL Cholesterol, Calculated 16 mg/dL (0-40) Non-HDL Cholesterol Calculated 98 mg/dL (0-129) HDL Cholesterol 48 mg/dL (40-60) Cholesterol/HDL Ratio 3.0 Thyroid Stimulating Hormone (TSH) 0.764 uIU/mL (0.358-3.74) Assessment/Plan Assessment/Plan IMP ESRD ANEMIA HTN HX DM II FLUID OVERLOAD ACUTE ON CHRONIC DIASTOLIC CHF NON COMPLIANCE PLAN HD YESTERDAY UF TO TW HD MWF [facility]A NEEDED CARDIOLOGY EVAL AND TX WILL FOLLOW JITENDRA HESS MD Mar 20, 2021 10:41
--- NOTE | 2021-03-20 10:46 | NUR ---
SS following for discharge planning. SS reviewed pt chart and discussed with pt RN. Pt is from home and is currently on room air. Neurology consulted. PT/OT/ST ordered. MRI and ECHO ordered. Pt on PO diet. SS will continue to follow for discharge planning. Addendum: 03/20/21 at 1052 by MARGO PARKS SS DISREGARD PREVIOUS NOTE: WRONG PATIENT.
--- NOTE | 2021-03-20 10:56 | NUR ---
SS following for discharge planning. SS reviewed pt chart and discussed with pt RN. Pt is from home and is currently on room air. Cardiology and Nephrology consulted. Pt has outpatient hemodialysis at [facility], ; fax [phone], Friday, Friday, and Friday. ECHO ordered. SS will continue to follow for discharge planning.
[2021-03-20 11:08] VITALS: BP 154/72
--- NOTE | 2021-03-20 11:33 | CARD ---
MR#: [id number] Date of Study: 03/20/2021 Ordering Physician: HAROON MOJICA, Referring Physician: HAROON MOJICA, Tech: Jackie Neal [facility] APPROVED REPORT EXAM: Two-dimensional and M-mode echocardiogram with Doppler and color Doppler. Other Information Quality : GoodHR: 89bpm Rhythm : NSR INDICATION Dyspnea RISK FACTORS Hypertension Hyperlipidemia Diabetes 2D DIMENSIONS RVDd3.1 (2.9-3.5cm)Left Atrium(2D)4.8 (1.6-4.0cm) IVSd1.4 (0.7-1.1cm)Aortic Root(2D)3.2 (2.0-3.7cm) LVDd4.6 (3.9-5.9cm)LVOT Diameter2.1 (1.8-2.4cm) PWd1.5 (0.7-1.1cm)LVDs2.6 (2.5-4.0cm) FS (%) 43.0 %SV72.2 ml LVEF(%)74.2 (>50%) Aortic Valve AoV Peak Dany.183.9cm/sAoV VTI39.6cm AO Peak GR.13.5mmHgLVOT Peak Dany.108.7cm/s AO Mean GR.7mmHgAVA (VMAX)2.14cm2 Mitral Valve MV E Dboxmcdl00.0cm/sMV DECEL [id number] MV A Ukyswzqs81.6cm/sE/A Ratio0.9 Pulmonary Valve PV Peak Efnocryr368.7cm/s Tricuspid Valve TR P. Edxpblke719ph/sTR Peak Gr.35mmHg LEFT VENTRICLE The left ventricle is normal size. There is mild to moderate concentric left ventricular hypertrophy. The left ventricular systolic function is normal. Estimated ejection fraction 55-60%. There is norm al LV segmental wall motion. Transmitral Doppler flow pattern is Grade I-abnormal relaxation pattern. RIGHT VENTRICLE The right ventricle is normal size. The right ventricle is mildly hypertrophied. The right ventricula r systolic function is normal. ATRIA The left atrium is moderately dilated. The right atrium is moderately dilated. The interatrial septum is intact with no evidence for an atrial septal defect or patent foramen ovale as noted on 2-D or Do ppler imaging. AORTIC VALVE The aortic valve is normal in structure and function. Doppler and Color Flow revealed mild to moderat e aortic regurgitation. There is no significant aortic valvular stenosis. MITRAL VALVE The mitral valve is normal in structure and function. There is no evidence of mitral valve prolapse. There is no mitral valve stenosis. Doppler and Color-flow revealed moderate eccentric mitral regurgit ation. TRICUSPID VALVE The tricuspid valve is normal in structure and function. Doppler and Color Flow revealed trace tricus pid regurgitation. There is no tricuspid valve stenosis. PULMONIC VALVE The pulmonary valve is normal in structure and function. Doppler and Color Flow revealed mild pulmoni c valvular regurgitation. GREAT VESSELS The aortic root is normal in size. The ascending aorta is normal in size. The IVC is normal in size a nd collapses >50% with inspiration. PERICARDIAL EFFUSION There is no evidence of significant pericardial effusion. Critical Notification Critical Value: No <Conclusion> The left ventricular systolic function is normal. Estimated ejection fraction 55-60%. There is normal LV segmental wall motion. Transmitral Doppler flow pattern is Grade I-abnormal relaxation pattern. The left atrium is moderately dilated. Mild to moderate aortic regurgitation. Moderate eccentric mitral regurgitation. Trace tricuspid regurgitation. There is no evidence of significant pericardial effusion. Signed by : Ramu Montoya, Electronically Approved : 03/20/2021 11:32:55
[2021-03-20 15:25] VITALS: BP 172/81
[2021-03-20 19:00] VITALS: BP 157/72
[2021-03-20 23:00] VITALS: BP 132/57
[2021-03-21 02:38] VITALS: BP 175/84
[2021-03-21 07:00] VITALS: BP 184/83
[2021-03-21 07:50] LABS: BASO # 0.1 x10^3/uL (0.0-0.2); BASO % 1 % (0-3); EOS # 0.1 x10^3/uL (0.0-0.7); EOS % 2 % (0-3); HEMATOCRIT 31.5 % (36.0-47.0); HEMOGLOBIN 10.4 g/dL (12.0-15.5); LYMPH # 1.3 x10^3/uL (1.0-4.8); LYMPH % 23 % (24-48); MEAN CORPUSCULAR HEMOGLOBIN 33 pg (25-35); MEAN CORPUSCULAR HGB CONC 33 g/dL (31-37); MEAN CORPUSCULAR VOLUME 101 fL (79-100); MONO # 0.9 x10^3/uL (0.0-1.1); MONO % 17 % (0-9); NEUT # 3.2 x10^3/uL (1.8-7.7); NEUT % 58 % (31-73); PLATELET COUNT 100 x10^3/uL (140-400); RED BLOOD COUNT 3.12 x10^6/uL (3.50-5.40); WHITE BLOOD COUNT 5.6 x10^3/uL (4.0-11.0)
[2021-03-21 08:05] LABS: ALBUMIN 2.6 g/dL (3.4-5.0); CALCIUM 8.5 mg/dL (8.5-10.1); CREATININE 7.5 mg/dL (0.6-1.0); GFR 6.5; POTASSIUM 4.4 mmol/L (3.5-5.1)
[2021-03-21] MEDS ORDERED: LIDOCAINE 1% PF 2 ML VIAL. INJ PRN (08:30)
[2021-03-21] MEDS ORDERED: IV NORMAL SALINE 1000ML BAG 1,000 ML IV PRN ×4 (08:30→09:00)
[2021-03-21] MEDS ORDERED: ALBUMIN HUMAN 25% 200 ML IV PRN ×2 (08:30→09:00)
[2021-03-21] MEDS ORDERED: DIALYSIS PATIENT. MC PRN ×4 (08:30→11:00)
[2021-03-21] MEDS: FOLIC/VIT B COMP W-C (RENAL) TABLET. PO SCH (08:59)
[2021-03-21] MEDS: CALCIUM ACETATE 667 MG CAPSULE PO SCH ×2 (08:59→14:44)
[2021-03-21] MEDS: CARVEDILOL 12.5 MG TABLET. PO SCH (08:59)
[2021-03-21 09:32] VITALS: BP 171/77
--- NOTE | 2021-03-21 09:37 | PDOC ---
PROGRESS NOTES Date of Service: DATE: 03/21/21 TIME: 09:37 Chief Complaint Chief Complaint VTE Prophylaxis Ordered VTE Prophylaxis Devices: Yes VTE Pharmacological Prophylaxi: Yes Assessment/Plan Assessment/Plan Impression: Acute dyspnea ESRD ON DIALYSIS Acute CHF// Central vascular congestion is noted. There are prominent interstitial and airspace opacities in both perihilar regions Grade IV diastolic dysfunction. moderate concentric left ventricular hypertr ophy. Mild to moderate aortic regurgitation. Moderate mitral regurgitation. Cardiomegaly Uncontrolled hypertension dietary noncompliance ADMITTED======== cvc bed NEPHROLOGY consult Cardiology consult iv bp control , iv hydralazine 10mg q 4 hrs 10mg prn bp support dvt prophylaxis home meds HOME TODAY AFTER DIALYSIS 32 min D/C PLANNING TIME History of Present Illness History of Present Illness Identification/Chief Complaint Chief Complaint shortness of breath, may have eaten too much salt over the weekend, c/o chest tightness, discomfort ? missed dialysis, inc difficulty breathing when supine History of Present Illness History of Present Illness 70 yr old female Seen in ER WITH acute CHF, Volume overload c/o chest tightness, discomfort noted inc difficulty breathing when supine troponin i neg x 1 , admits dietary noncompliance /// nephrology and cardiology consulted known ESRD ON DIALYSIS// Acute CHF// Central vascular congestion is noted. There are prominent interstitial and airspace opacities in both perihilar regions recent echo c/w Grade IV diastolic dysfunction. moderate concentric left ventricular hypertrophy. Mild to moderate aortic regurgitation. Moderate mitral regurgitation. Uncontrolled hypertension noted on admit Past Medical History Past Medical History Past Medical History Past Medical History: Diabetes-Type II, Hypertension, Renal Failure Additional Past Medical Histor: PSORIATIC ARTHRITIS, DIALYSIS Past Surgical History: , Tubal ligation Additional Past Surgical Histo: L ROTATOR CUFF Smoking Status: Never Smoker Alcohol Use: None Drug Use: None PAST MEDICAL HISTORY: End-stage renal disease, on dialysis; hyperparathyroidism; diabetes mellitus; chronic low back pain; anemia and hypertension. FAMILY HISTORY: Hypertension. SOCIAL HISTORY: No toxic habits. FHX HTN Cardiovascular: HTN GI: Constipation Heme/Onc: Anemia NOS Hepatobiliary: No pertinent hx Psych: No pertinent hx, Anxiety Musculoskeletal: Osteoarthritis Renal/: Chronic renal failure Endocrine: Diabetes, Hyperparathyroidism Past Surgical History Past Surgical History: , Tubal Ligation, Other Family History Family History: Hypertension Social History Smoke: <1 pack per day ALCOHOL: none Drugs: None Current Problem List Problem List Problems Medical Problems: (1) Acute CHF Status: Acute (2) Acute dyspnea Status: Acute (3) Cardiomegaly Status: Acute (4) Uncontrolled hypertension Status: Acute Current Medications Current Medications Active Scripts Active Aldactone (Spironolactone) 25 Mg Tablet 1 Tab PO DAILY Coreg (Carvedilol) 12.5 Mg Tablet 1 Tab PO BID Norvasc (Amlodipine Besylate) 10 Mg Tablet 10 Mg PO DAILY Phoslo (Calcium Acetate) 667 Mg Capsule 667 Mg PO TIDWMEALS Reported Hydralazine Hcl 50 Mg Tablet 1 Tab PO BID Renal Vitamin Tablet (Folic Acid/Vit Bcomp,C) 0.8 Mg Tablet 0.8 Mg PO Allergies Allergies: Coded Allergies: No Known Drug Allergies (Unverified , 03/20/16) ROS General: YES: Fatigue; No: Chills, Night Sweats, Malaise, Appetite, Other PSYCHOLOGICAL ROS: No: Anxiety, Behavioral Disorder, Concentration difficultie, Decreased libido, Depression, Disorientation, Hallucinations, Hostility, Irritablity, Memory difficulties, Mood Swings, Obsessive thoughts, Physical abuse, Sexual abuse, Sleep disturbances, Suicidal ideation, Other Eyes: No Blurry vision, No Decreased vision, No Double vision, No Dry eyes, No Excessive tearing, No Eye Pain, No Itchy Eyes, No Loss of vision, No Photophobia, No Scotomata, No Uses contacts, No Uses glasses, No Other HEENT: No: Heacaches, Visual Changes, Hearing change, Nasal congestion, Nasal discharge, Oral lesions, Sinus pain, Sore Throat, Epistaxis, Sneezing, Snoring, Tinnitus, Vertigo, Vocal changes, Other ALLERGY AND IMMUNOLOGY: No: Hives, Insect Bite Sensitivity, Itchy/Watery Eyes, Nasal Congestion, Post Nasal Drip, Seasonal Allergies, Other Hematological and Lymphatic: No: Bleeding Problems, Blood Clots, Blood Tra nsfusions, Brusing, Night Sweats, Pallor, Swollen Lymph Nodes, Other ENDOCRINE: No: Breast Changes, Galactorrhea, Hair Pattern Changes, Hot Flashes, Malaise/lethargy, Mood Swings, Palpitations, Polydipsia/polyuria, Skin Changes, Temperature Intolerance, Unexpected Weight Changes, Other Breast: No New/Changing Breast Lumps, No Nipple changes, No Nipple discharge, No Other Respiratory: YES: Shortness of breath, SOB with excertion Cardiovascular: yes Orthopnea; No Chest Pain, No Palpitations, No Paroxysmal Noc. Dyspnea, No Edema, No Lt Headedness, No Other Gastrointestinal: No Nausea, No Vomiting, No Abdominal Pain, No Diarrhea, No Constipation, No Melena, No Hematochezia, No Other Genitourinary: No Dysuria, No Frequency, No Incontinence, No Hematuria, No Retention, No Discharge, No Urgency, No Pain, No Flank Pain, No Other, No , No , No , No , No , No , No Musculoskeletal: Yes Joint Stiffness; No Gait Disturbance, No Joint Pain, No Joint Swelling, No Muscle Pain, No Muscular Weakness, No Pain In:, No Swelling In:, No Other Neurological: No Behavorial Changes, No Bowel/Bladder ControlChng, No Confusion, No Dizziness, No Gait Disturbance, No Headaches, No Impaired Coord/balance, No Memory Loss, No Numbness/Tingling, No Seizures, No Speech Problems, No Tremors, No Visual Changes, No Weakness, No Other Skin: No Dry Skin, No Eczema, No Hair Changes, No Lumps, No Mole Changes, No Mottling, No Nail Changes, No Pruritus, No Rash, No Skin Lesion Changes, No Other, No Acne 7-13 Acute dyspnea ESRD ON DIALYSIS Acute CHF// Central vascular congestion is noted. There are prominent interstitial and airspace opacities in both perihilar regions Grade IV diastolic dysfunction. moderate concentric left ventricular hypertrophy. Mild to moderate aortic regurgitation. Moderate mitral regurgitation. Cardiomegaly Uncontrolled hypertension dietary noncompliance cvc bed NEPHROLOGY consult Cardiology consult iv bp control , iv hydralazine 10mg q 4 hrs 10mg prn bp support dvt prophylaxis home meds d/w RN Vitals Vitals Vital Signs Date Time Temp Pulse Resp B/P (MAP) Pulse Ox O2 Delivery O2 Flow Rate FiO2 03/21/21 08:59 88 03/21/21 07:00 99.5 16 184/83 (116) 93 Room Air 99.5 03/20/21 20:00 2.0 Physical Exam General: Alert, Oriented X3, Cooperative, No acute distress Heart: Regular rate, Normal S1, Normal S2 Lungs: Clear Abdomen: Normal bowel sounds, Soft, No tenderness, No hepatosplenomegaly, No masses Extremities: No clubbing, No cyanosis Skin: No breakdown Labs LABS Laboratory Tests Test 03/21/21 06:15 White Blood Count 5.6 x10^3/uL (4.0-11.0) Red Blood Count 3.12 x10^6/uL (3.50-5.40) Hemoglobin 10.4 g/dL (12.0-15.5) Hematocrit 31.5 % (36.0-47.0) Mean Corpuscular Volume 101 fL (79-100) Mean Corpuscular Hemoglobin 33 pg (25-35) Mean Corpuscular Hemoglobin Concent 33 g/dL (31-37) Red Cell Distribution Width 14.0 % (11.5-14.5) Platelet Count 100 x10^3/uL (140-400) Neutrophils (%) (Auto) 58 % (31-73) Lymphocytes (%) (Auto) 23 % (24-48) Monocytes (%) (Auto) 17 % (0-9) Eosinophils (%) (Auto) 2 % (0-3) Basophils (%) (Auto) 1 % (0-3) Neutrophils # (Auto) 3.2 x10^3/uL (1.8-7.7) Lymphocytes # (Auto) 1.3 x10^3/uL (1.0-4.8) Monocytes # (Auto) 0.9 x10^3/uL (0.0-1.1) Eosinophils # (Auto) 0.1 x10^3/uL (0.0-0.7) Basophils # (Auto) 0.1 x10^3/uL (0.0-0.2) Sodium Level 141 mmol/L (136-145) Potassium Level 4.4 mmol/L (3.5-5.1) Chloride Level 104 mmol/L (98-107) Carbon Dioxide Level 30 mmol/L (21-32) Anion Gap 7 (6-14) Blood Urea Nitrogen 34 mg/dL (7-20) Creatinine 7.5 mg/dL (0.6-1.0) Estimated GFR (Cockcroft-Gault) 6.5 Glucose Level 85 mg/dL (70-99) Calcium Level 8.5 mg/dL (8.5-10.1) Phosphorus Level 4.0 mg/dL (2.6-4.7) Albumin 2.6 g/dL (3.4-5.0) Assessment and Plan Assessmemt and Plan Problems Medical Problems: (1) Acute CHF Status: Acute (2) Acute dyspnea Status: Acute (3) Cardiomegaly Status: Acute (4) Uncontrolled hypertension Status: Acute Comment Review of Relevant I have reviewed the following items waqas (where applicable) has been applied. Labs Laboratory Tests Test 03/20/21 06:20 03/21/21 06:15 White Blood Count 4.6 x10^3/uL (4.0-11.0) 5.6 x10^3/uL (4.0-11.0) Red Blood Count 3.18 x10^6/uL (3.50-5.40) 3.12 x10^6/uL (3.50-5.40) Hemoglobin 10.6 g/dL (12.0-15.5) 10.4 g/dL (12.0-15.5) Hematocrit 32.1 % (36.0-47.0) 31.5 % (36.0-47.0) Mean Corpuscular Volume 101 fL (79-100) 101 fL (79-100) Mean Corpuscular Hemoglobin 33 pg (25-35) 33 pg (25-35) Mean Corpuscular Hemoglobin Concent 33 g/dL (31-37) 33 g/dL (31-37) Red Cell Distribution Width 14.2 % (11.5-14.5) 14.0 % (11.5-14.5) Platelet Count 100 x10^3/uL (140-400) 100 x10^3/uL (140-400) Neutrophils (%) (Auto) 68 % (31-73) 58 % (31-73) Lymphocytes (%) (Auto) 15 % (24-48) 23 % (24-48) Monocytes (%) (Auto) 14 % (0-9) 17 % (0-9) Eosinophils (%) (Auto) 2 % (0-3) 2 % (0-3) Basophils (%) (Auto) 1 % (0-3) 1 % (0-3) Neutrophils # (Auto) 3.1 x10^3/uL (1.8-7.7) 3.2 x10^3/uL (1.8-7.7) Lymphocytes # (Auto) 0.7 x10^3/uL (1.0-4.8) 1.3 x10^3/uL (1.0-4.8) Monocytes # (Auto) 0.6 x10^3/uL (0.0-1.1) 0.9 x10^3/uL (0.0-1.1) Eosinophils # (Auto) 0.1 x10^3/uL (0.0-0.7) 0.1 x10^3/uL (0.0-0.7) Basophils # (Auto) 0.0 x10^3/uL (0.0-0.2) 0.1 x10^3/uL (0.0-0.2) Sodium Level 138 mmol/L (136-145) 141 mmol/L (136-145) Potassium Level 4.1 mmol/L (3.5-5.1) 4.4 mmol/L (3.5-5.1) Chloride Level 101 mmol/L (98-107) 104 mmol/L (98-107) Carbon Dioxide Level 31 mmol/L (21-32) 30 mmol/L (21-32) Anion Gap 6 (6-14) 7 (6-14) Blood Urea Nitrogen 22 mg/dL (7-20) 34 mg/dL (7-20) Creatinine 5.4 mg/dL (0.6-1.0) 7.5 mg/dL (0.6-1.0) Estimated GFR (Cockcroft-Gault) 9.4 6.5 BUN/Creatinine Ratio 4 (6-20) Glucose Level 120 mg/dL (70-99) 85 mg/dL (70-99) Calcium Level 8.6 mg/dL (8.5-10.1) 8.5 mg/dL (8.5-10.1) Total Bilirubin 0.5 mg/dL (0.2-1.0) Aspartate Amino Transf (AST/SGOT) 26 U/L (15-37) Alanine Aminotransferase (ALT/SGPT) 22 U/L (14-59) Alkaline Phosphatase 81 U/L (46-116) Total Protein 7.3 g/dL (6.4-8.2) Albumin 2.8 g/dL (3.4-5.0) 2.6 g/dL (3.4-5.0) Albumin/Globulin Ratio 0.6 (1.0-1.7) Triglycerides Level 82 mg/dL (0-150) Cholesterol Level 146 mg/dL (0-200) LDL Cholesterol, Calculated 82 mg/dL (0-100) VLDL Cholesterol, Calculated 16 mg/dL (0-40) Non-HDL Cholesterol Calculated 98 mg/dL (0-129) HDL Cholesterol 48 mg/dL (40-60) Cholesterol/HDL Ratio 3.0 Thyroid Stimulating Hormone (TSH) 0.764 uIU/mL (0.358-3.74) Phosphorus Level 4.0 mg/dL (2.6-4.7) Laboratory Tests Test 03/21/21 06:15 White Blood Count 5.6 x10^3/uL (4.0-11.0) Red Blood Count 3.12 x10^6/uL (3.50-5.40) Hemoglobin 10.4 g/dL (12.0-15.5) Hematocrit 31.5 % (36.0-47.0) Mean Corpuscular Volume 101 fL (79-100) Mean Corpuscular Hemoglobin 33 pg (25-35) Mean Corpuscular Hemoglobin Concent 33 g/dL (31-37) Red Cell Distribution Width 14.0 % (11.5-14.5) Platelet Count 100 x10^3/uL (140-400) Neutrophils (%) (Auto) 58 % (31-73) Lymphocytes (%) (Auto) 23 % (24-48) Monocytes (%) (Auto) 17 % (0-9) Eosinophils (%) (Auto) 2 % (0-3) Basophils (%) (Auto) 1 % (0-3) Neutrophils # (Auto) 3.2 x10^3/uL (1.8-7.7) Lymphocytes # (Auto) 1.3 x10^3/uL (1.0-4.8) Monocytes # (Auto) 0.9 x10^3/uL (0.0-1.1) Eosinophils # (Auto) 0.1 x10^3/uL (0.0-0.7) Basophils # (Auto) 0.1 x10^3/uL (0.0-0.2) Sodium Level 141 mmol/L (136-145) Potassium Level 4.4 mmol/L (3.5-5.1) Chloride Level 104 mmol/L (98-107) Carbon Dioxide Level 30 mmol/L (21-32) Anion Gap 7 (6-14) Blood Urea Nitrogen 34 mg/dL (7-20) Creatinine 7.5 mg/dL (0.6-1.0) Estimated GFR (Cockcroft-Gault) 6.5 Glucose Level 85 mg/dL (70-99) Calcium Level 8.5 mg/dL (8.5-10.1) Phosphorus Level 4.0 mg/dL (2.6-4.7) Albumin 2.6 g/dL (3.4-5.0) Medications Current Medications Furosemide (Lasix) 60 mg 1X ONCE IVP Last administered on 03/19/21at 13:00; Start 03/19/21 at 10:00; Stop 03/19/21 at 10:01; Status DC Amlodipine Besylate (Norvasc) 10 mg DAILY PO Last administered on 03/21/21at 08:55; Start 03/19/21 at 11:00 Calcium Acetate (Phoslo) 667 mg TIDWMEALS PO Last administered on 03/21/21at 08:59; Start 03/19/21 at 12:00 Carvedilol (Coreg) 12.5 mg BIDWMEALS PO Last administered on 03/19/21at 19:26; Start 03/19/21 at 11:00; Stop 03/20/21 at 08:31; Status DC Vitamin B Complex/ Vitamin C (Gail-Meliza) 1 tab DAILY08 PO Last administered on 03/21/21at 08:59; Start 03/19/21 at 11:00 Hydralazine HCl (Apresoline) 50 mg BID PO Last administered on 03/19/21at 20:11; Start 03/19/21 at 11:00; Stop 03/20/21 at 08:31; Status DC Furosemide (Lasix) 40 mg STK-MED ONCE .ROUTE ; Start 03/19/21 at 14:18; Stop 03/19/21 at 14:18; Status DC Sodium Chloride 1,000 ml @ 1,000 mls/hr Q1H PRN IV hypotension; Start 03/19/21 at 15:15; Stop 03/19/21 at 21:14; Status DC Sodium Chloride 1,000 ml @ 400 mls/hr Q2H30M PRN IV PATENCY; Start 03/19/21 at 15:15; Stop 03/20/21 at 06:26; Status DC Info (PHARMACY MONITORING -- do not chart) 1 each PRN DAILY PRN MC SEE COMMENTS; Start 03/19/21 at 15:15 Hydralazine HCl (Apresoline Inj) 10 mg PRN Q4HRS PRN IVP ELEVATED BP, SEE COMMENTS Last administered on 03/20/21at 15:37; Start 03/19/21 at 16:45 Carvedilol (Coreg) 25 mg BIDWMEALS PO Last administered on 03/21/21at 08:59; Start 03/20/21 at 08:30 Hydralazine HCl (Apresoline) 100 mg BID PO Last administered on 03/20/21at 21: 33; Start 03/20/21 at 09:00 Sodium Chloride 1,000 ml @ 1,000 mls/hr Q1H PRN IV hypotension; Start 03/21/21 at 08:30; Stop 03/21/21 at 14:29 Albumin Human 200 ml @ 200 mls/hr 1X PRN PRN IV Hypotension; Start 03/21/21 at 08:30; Stop 03/21/21 at 14:29 Sodium Chloride 1,000 ml @ 400 mls/hr Q2H30M PRN IV PATENCY; Start 03/21/21 at 08:30; Stop 03/21/21 at 20:29 Lidocaine HCl (Xylocaine-Mpf 1% 2ml Vial) 2 ml 1X PRN PRN INJ FOR DIALYSIS; Start 03/21/21 at 08:30; Stop 03/22/21 at 08:29 Info (PHARMACY MONITORING -- do not chart) 1 each PRN DAILY PRN MC SEE COMMENTS; Start 03/21/21 at 08:30 Info (PHARMACY MONITORING -- do not chart) 1 each PRN DAILY PRN MC SEE COMMENTS; Start 03/21/21 at 08:30; Status UNV Active Scripts Active Aldactone (Spironolactone) 25 Mg Tablet 1 Tab PO DAILY Norvasc (Amlodipine Besylate) 10 Mg Tablet 10 Mg PO DAILY Phoslo (Calcium Acetate) 667 Mg Capsule 667 Mg PO TIDWMEALS Reported Acetaminophen 500 Mg Tablet 1 Tab PO PRN Q6HRS PRN 15 Days Acetaminophen-Cod #3 Tablet (Acetaminophen/Codeine Phosphate) 1 Each Tablet 1 Tab PO PRN Q6HRS PRN Zinc (Zinc Gluconate) 30 Mg Tablet 30 Mg PO DAILY Coreg (Carvedilol) 25 Mg Tablet 25 Mg PO BIDWMEALS Hydralazine Hcl 50 Mg Tablet 1 Tab PO TID Renal Vitamin Tablet (Folic Acid/Vit Bcomp,C) 0.8 Mg Tablet 0.8 Mg PO Vitals/I & O Vital Sign - Last 24 Hours 03/20/21 03/20/21 03/20/21 03/20/21 11:08 15:25 15:37 17:38 Temp 99.5 99.5 99.5 99.5 Pulse 80 80 80 91 Resp 18 18 B/P (MAP) 154/72 (99) 172/81 (111) 172/81 189/83 Pulse Ox 94 94 O2 Delivery Room Air Room Air 03/20/21 03/20/21 03/20/21 03/20/21 19:00 20:00 21:33 23:00 Temp 99.1 98.0 99.1 98.0 Pulse 79 79 80 Resp 16 16 B/P (MAP) 157/72 (100) 157/72 132/57 (82) Pulse Ox 93 93 O2 Delivery Room Air Room Air Room Air O2 Flow Rate 2.0 03/21/21 03/21/21 03/21/21 03/21/21 02:38 07:00 08:55 08:59 Temp 97.8 99.5 97.8 99.5 Pulse 84 80 87 88 Resp 18 16 B/P (MAP) 175/84 (114) 184/83 (116) Pulse Ox 94 93 O2 Delivery Room Air Room Air Intake and Output 03/20/21 03/20/21 03/21/21 15:00 23:00 07:00 Intake Total 240 ml 170 ml 100 ml Balance 240 ml 170 ml 100 ml Justicifation of Admission Dx: Justifications for Admission: Justification of Admission Dx: Yes CHF: Hemodynamic Instability Sepsis: Hypoxemia HUY AVILES MD Mar 21, 2021 09:37
--- NOTE | 2021-03-21 10:54 | PDOC ---
Renal-Progress Notes Subjective Notes Notes FEELS WELL History of Present Illness Hx of present illness IMPROVED, WANTS TO GO HOME Vitals Vitals Vital Signs Date Time Temp Pulse Resp B/P (MAP) Pulse Ox O2 Delivery O2 Flow Rate FiO2 03/21/21 09:32 85 171/77 (108) 03/21/21 07:00 99.5 16 93 Room Air 99.5 03/20/21 20:00 2.0 Weight Weight [ ] I.O. Intake and Output Intake and Output 03/21/21 07:00 Intake Total 510 ml Balance 510 ml Intake Oral 510 ml Labs Labs Laboratory Tests Test 03/21/21 06:15 White Blood Count 5.6 x10^3/uL (4.0-11.0) Red Blood Count 3.12 x10^6/uL (3.50-5.40) Hemoglobin 10.4 g/dL (12.0-15.5) Hematocrit 31.5 % (36.0-47.0) Mean Corpuscular Volume 101 fL (79-100) Mean Corpuscular Hemoglobin 33 pg (25-35) Mean Corpuscular Hemoglobin Concent 33 g/dL (31-37) Red Cell Distribution Width 14.0 % (11.5-14.5) Platelet Count 100 x10^3/uL (140-400) Neutrophils (%) (Auto) 58 % (31-73) Lymphocytes (%) (Auto) 23 % (24-48) Monocytes (%) (Auto) 17 % (0-9) Eosinophils (%) (Auto) 2 % (0-3) Basophils (%) (Auto) 1 % (0-3) Neutrophils # (Auto) 3.2 x10^3/uL (1.8-7.7) Lymphocytes # (Auto) 1.3 x10^3/uL (1.0-4.8) Monocytes # (Auto) 0.9 x10^3/uL (0.0-1.1) Eosinophils # (Auto) 0.1 x10^3/uL (0.0-0.7) Basophils # (Auto) 0.1 x10^3/uL (0.0-0.2) Sodium Level 141 mmol/L (136-145) Potassium Level 4.4 mmol/L (3.5-5.1) Chloride Level 104 mmol/L (98-107) Carbon Dioxide Level 30 mmol/L (21-32) Anion Gap 7 (6-14) Blood Urea Nitrogen 34 mg/dL (7-20) Creatinine 7.5 mg/dL (0.6-1.0) Estimated GFR (Cockcroft-Gault) 6.5 Glucose Level 85 mg/dL (70-99) Calcium Level 8.5 mg/dL (8.5-10.1) Phosphorus Level 4.0 mg/dL (2.6-4.7) Albumin 2.6 g/dL (3.4-5.0) Review of Systems Constitutional: yes: weakness, alert, oriented Ears/Nose/Throat: Yes: no symptom reported Eyes: Yes: no symptom reported Pulmonary: Yes no symptom reported Cardiovascular: Yes no symptom reported Gastrointestional: Yes: no symptom reported Genitourinary: Yes: no symptom reported Musculoskeletal: Yes: no symptom reported Skin: Yes no symptom reported Psychiatric/Neurological: Yes: no symptom reported Endocrine: Yes: no symptom reported Physical Exam General Appearance: no apparent distress Skin: warm Respiratory: bilateral CTA Heart: S1S2 Abdomen: soft, bowel sounds present Neurology: alert, oriented, follow commands Assessment Assessment IMP ESRD ANEMIA HTN HX DM II FLUID OVERLOAD-IMPROVED ACUTE ON CHRONIC DIASTOLIC CHF NON COMPLIANCE PLAN HD TODAY UF TO TW MAURA NEEDED CARDIOLOGY EVAL AND TX WILL FOLLOW JITENDRA HESS MD Mar 21, 2021 10:54
--- NOTE | 2021-03-21 10:57 | PDOC3 ---
Discharge Summary Date of Admission: Mar 19, 2021 Date of Discharge: Mar 21, 2021 Follow-Up: 1-2 days Admitting Diagnosis comment: complications none d/c condition good consults cardiology, nephrology procedures cvc monitor, dialysis x2 discharge dx Assessment/Plan Impression: Acute dyspnea ESRD ON DIALYSIS Acute CHF// Central vascular congestion is noted. There are prominent interstitial and airspace opacities in both perihilar regions Grade IV diastolic dysfunction. moderate concentric left ventricular hypertrophy. Mild to moderate aortic regurgitation. Moderate mitral regurgitation. Cardiomegaly Uncontrolled hypertension dietary noncompliance ADMITTED======== cvc bed NEPHROLOGY consult Cardiology consult iv bp control , iv hydralazine 10mg q 4 hrs 10mg prn bp support dvt prophylaxis home meds HOME TODAY AFTER DIALYSIS 32 min D/C PLANNING TIME History of Present Illness History of Present Illness Identification/Chief Complaint Chief Complaint shortness of breath, may have eaten too much salt over the weekend, c/o chest tightness, discomfort ? missed dialysis, inc difficulty breathing when supine History of Present Illness History of Present Illness 70 yr old female Seen in ER WITH acute CHF, Volume overload c/o chest tightness, discomfort noted inc difficulty breathing when supine troponin i neg x 1 , admits dietary noncompliance /// nephrology and cardiology consulted known ESRD ON DIALYSIS// Acute CHF// Central vascular congestion is noted. There are prominent interstitial and airspace opacities in both perihilar regions recent echo c/w Grade IV diastolic dysfunction. moderate concentric left ventricular hypertrophy. Mild to moderate aortic regurgitation. Moderate mitral regurgitation. Uncontrolled hypertension noted on admit Past Medical History Past Medical History Past Medical History Past Medical History: Diabetes-Type II, Hypertension, Renal Failure Additional Past Medical Histor: PSORIATIC ARTHRITIS, DIALYSIS Past Surgical History: , Tubal ligation Additional Past Surgical Histo: L ROTATOR CUFF Smoking Status: Never Smoker Alcohol Use: None Drug Use: None PAST MEDICAL HISTORY: End-stage renal disease, on dialysis; hyperparathyroidism; diabetes mellitus; chronic low back pain; anemia and hypertension. FAMILY HISTORY: Hypertension. SOCIAL HISTORY: No toxic habits. FHX HTN Cardiovascular: HTN GI: Constipation Heme/Onc: Anemia NOS Hepatobiliary: No pertinent hx Psych: No pertinent hx, Anxiety Musculoskeletal: Osteoarthritis Renal/: Chronic renal failure Endocrine: Diabetes, Hyperparathyroidism Past Surgical History Past Surgical History: , Tubal Ligation, Other Family History Family History: Hypertension Social History Smoke: <1 pack per day ALCOHOL: none Drugs: None Current Problem List Problem List Problems Medical Problems: (1) Acute CHF Status: Acute (2) Acute dyspnea Status: Acute (3) Cardiomegaly Status: Acute (4) Uncontrolled hypertension Status: Acute Current Medications Current Medications Active Scripts Active Aldactone (Spironolactone) 25 Mg Tablet 1 Tab PO DAILY Coreg (Carvedilol) 12.5 Mg Tablet 1 Tab PO BID Norvasc (Amlodipine Besylate) 10 Mg Tablet 10 Mg PO DAILY Phoslo (Calcium Acetate) 667 Mg Capsule 667 Mg PO TIDWMEALS Reported Hydralazine Hcl 50 Mg Tablet 1 Tab PO BID Renal Vitamin Tablet (Folic Acid/Vit Bcomp,C) 0.8 Mg Tablet 0.8 Mg PO Allergies Allergies: Coded Allergies: No Known Drug Allergies (Unverified , 03/20/16) ROS General: YES: Fatigue; No: Chills, Night Sweats, Malaise, Appetite, Other PSYCHOLOGICAL ROS: No: Anxiety, Behavioral Disorder, Concentration difficultie, Decreased libido, Depression, Disorientation, Hallucinations, Hostility, Irritablity, Memory difficulties, Mood Swings, Obsessive thoughts, Physical abuse, Sexual abuse, Sleep disturbances, Suicidal ideation, Other Eyes: No Blurry vision, No Decreased vision, No Double vision, No Dry eyes, No Excessive tearing, No Eye Pain, No Itchy Eyes, No Loss of vision, No Photophobia, No Scotomata, No Uses contacts, No Uses glasses, No Other HEENT: No: Heacaches, Visual Changes, Hearing change, Nasal congestion, Nasal discharge, Oral lesions, Sinus pain, Sore Throat, Epistaxis, Sneezing, Snoring, Tinnitus, Vertigo, Vocal changes, Other ALLERGY AND IMMUNOLOGY: No: Hives, Insect Bite Sensitivity, Itchy/Watery Eyes, Nasal Congestion, Post Nasal Drip, Seasonal Allergies, Other Hematological and Lymphatic: No: Bleeding Problems, Blood Clots, Blood Transfusions, Brusing, Night Sweats, Pallor, Swollen Lymph Nodes, Other ENDOCRINE: No: Breast Changes, Galactorrhea, Hair Pattern Changes, Hot Flashes, Malaise/lethargy, Mood Swings, Palpitations, Polydipsia/polyuria, Skin Changes, Temperature Intolerance, Unexpected Weight Changes, Other Breast: No New/Changing Breast Lumps, No Nipple changes, No Nipple discharge, No Other Respiratory: YES: Shortness of breath, SOB with excertion Cardiovascular: yes Orthopnea; No Chest Pain, No Palpitations, No Paroxysmal Noc. Dyspnea, No Edema, No Lt Headedness, No Other Gastrointestinal: No Nausea, No Vomiting, No Abdominal Pain, No Diarrhea, No Constipation, No Melena, No Hematochezia, No Other Genitourinary: No Dysuria, No Frequency, No Incontinence, No Hematuria, No Retention, No Discharge, No Urgency, No Pain, No Flank Pain, No Other, No , No , No , No , No , No , No Musculoskeletal: Yes Joint Stiffness; No Gait Disturbance, No Joint Pain, No Joint Swelling, No Muscle Pain, No Muscular Weakness, No Pain In:, No Swelling In:, No Other Neurological: No Behavorial Changes, No Bowel/Bladder ControlChng, No Confusion, No Dizziness, No Gait Disturbance, No Headaches, No Impaired Coord/balance, No Memory Loss, No Numbness/Tingling, No Seizures, No Speech Problems, No Tremors, No Visual Changes, No Weakness, No Other Skin: No Dry Skin, No Eczema, No Hair Changes, No Lumps, No Mole Changes, No Mottling, No Nail Changes, No Pruritus, No Rash, No Skin Lesion Changes, No Other, No Acne 7-13 Acute dyspnea ESRD ON DIALYSIS Acute CHF// Central vascular congestion is noted. There are prominent interstitial and airspace opacities in both perihilar regions Grade IV diastolic dysfunction. moderate concentric left ventricular hypertrophy. Mild to moderate aortic regurgitation. Moderate mitral r egurgitation. Cardiomegaly Uncontrolled hypertension dietary noncompliance cvc bed NEPHROLOGY consult Cardiology consult iv bp control , iv hydralazine 10mg q 4 hrs 10mg prn bp support dvt prophylaxis home meds d/w RN Vitals Vitals Vital Signs Date Time Temp Pulse Resp B/P (MAP) Pulse Ox O2 Delivery O2 Flow Rate FiO2 03/21/21 08:59 88 03/21/21 07:00 99.5 16 184/83 (116) 93 Room Air 99.5 03/20/21 20:00 2.0 Physical Exam General: Alert, Oriented X3, Cooperative, No acute distress Heart: Regular rate, Normal S1, Normal S2 Lungs: Clear Abdomen: Normal bowel sounds, Soft, No tenderness, No hepatosplenomegaly, No masses Extremities: No clubbing, No cyanosis Skin: No breakdown FINAL DIAGNOSIS Problems Medical Problems: (1) Acute CHF Status: Acute (2) Acute dyspnea Status: Acute (3) Cardiomegaly Status: Acute (4) Uncontrolled hypertension Status: Acute Brief Hospital Course Ms. Tucker is a 70 old [sex] who presented with [ acute chf, volume overload, due to dietary noncompliance] CONDITION AT DISCHARGE: Improved Discharge Medications Current Medications Furosemide (Lasix) 60 mg 1X ONCE IVP Last administered on 03/19/21at 13:00; Start 03/19/21 at 10:00; Stop 03/19/21 at 10:01; Status DC Amlodipine Besylate (Norvasc) 10 mg DAILY PO Last administered on 03/21/21at 08:55; Start 03/19/21 at 11:00 Calcium Acetate (Phoslo) 667 mg TIDWMEALS PO Last administered on 03/21/21at 08:59; Start 03/19/21 at 12:00 Carvedilol (Coreg) 12.5 mg BIDWMEALS PO Last administered on 03/19/21at 19:26; Start 03/19/21 at 11:00; Stop 03/20/21 at 08:31; Status DC Vitamin B Complex/ Vitamin C (Gail-Meliza) 1 tab DAILY08 PO Last administered on 03/21/21at 08:59; Start 03/19/21 at 11:00 Hydralazine HCl (Apresoline) 50 mg BID PO Last administered on 03/19/21at 20:11; Start 03/19/21 at 11:00; Stop 03/20/21 at 08:31; Status DC Furosemide (Lasix) 40 mg STK-MED ONCE .ROUTE ; Start 03/19/21 at 14:18; Stop 03/19/21 at 14:18; Status DC Sodium Chloride 1,000 ml @ 1,000 mls/hr Q1H PRN IV hypotension; Start 03/19/21 at 15:15; Stop 03/19/21 at 21:14; Status DC Sodium Chloride 1,000 ml @ 400 mls/hr Q2H30M PRN IV PATENCY; Start 03/19/21 at 15:15; Stop 03/20/21 at 06:26; Status DC Info (PHARMACY MONITORING -- do not chart) 1 each PRN DAILY PRN MC SEE COMMENTS; Start 03/19/21 at 15:15 Hydralazine HCl (Apresoline Inj) 10 mg PRN Q4HRS PRN IVP ELEVATED BP, SEE COMMENTS Last administered on 03/20/21at 15:37; Start 03/19/21 at 16:45 Carvedilol (Coreg) 25 mg BIDWMEALS PO Last administered on 03/21/21at 08:59; Start 03/20/21 at 08:30 Hydralazine HCl (Apresoline) 100 mg BID PO Last administered on 03/20/21at 21:33; Start 03/20/21 at 09:00 Sodium Chloride 1,000 ml @ 1,000 mls/hr Q1H PRN IV hypotension; Start 03/21/21 at 08:30; Stop 03/21/21 at 14:29 Albumin Human 200 ml @ 200 mls/hr 1X PRN PRN IV Hypotension; Start 03/21/21 at 08:30; Stop 03/21/21 at 14:29 Sodium Chloride 1,000 ml @ 400 mls/hr Q2H30M PRN IV PATENCY; Start 03/21/21 at 08:30; Stop 03/21/21 at 20:29 Lidocaine HCl (Xylocaine-Mpf 1% 2ml Vial) 2 ml 1X PRN PRN INJ FOR DIALYSIS; Start 03/21/21 at 08:30; Stop 03/22/21 at 08:29 Info (PHARMACY MONITORING -- do not chart) 1 each PRN DAILY PRN MC SEE COMMENTS; Start 03/21/21 at 08:30 Info (PHARMACY MONITORING -- do not chart) 1 each PRN DAILY PRN MC SEE COMMENTS; Start 03/21/21 at 08:30; Status UNV Active Scripts Active Aldactone (Spironolactone) 25 Mg Tablet 1 Tab PO DAILY Norvasc (Amlodipine Besylate) 10 Mg Tablet 10 Mg PO DAILY Phoslo (Calcium Acetate) 667 Mg Capsule 667 Mg PO TIDWMEALS Reported Acetaminophen 500 Mg Tablet 1 Tab PO PRN Q6HRS PRN 15 Days Acetaminophen-Cod #3 Tablet (Acetaminophen/Codeine Phosphate) 1 Each Tablet 1 Tab PO PRN Q6HRS PRN Zinc (Zinc Gluconate) 30 Mg Tablet 30 Mg PO DAILY Coreg (Carvedilol) 25 Mg Tablet 25 Mg PO BIDWMEALS Hydralazine Hcl 50 Mg Tablet 1 Tab PO TID Renal Vitamin Tablet (Folic Acid/Vit Bcomp,C) 0.8 Mg Tablet 0.8 Mg PO Vital Signs Vital Signs Date Time Temp Pulse Resp B/P (MAP) Pulse Ox O2 Delivery O2 Flow Rate FiO2 03/21/21 09:32 85 171/77 (108) 03/21/21 07:00 99.5 16 93 Room Air 99.5 03/20/21 20:00 2.0 Labs Laboratory Tests Test 03/20/21 06:20 03/21/21 06:15 White Blood Count 4.6 x10^3/uL (4.0-11.0) 5.6 x10^3/uL (4.0-11.0) Red Blood Count 3.18 x10^6/uL (3.50-5.40) 3.12 x10^6/uL (3.50-5.40) Hemoglobin 10.6 g/dL (12.0-15.5) 10.4 g/dL (12.0-15.5) Hematocrit 32.1 % (36.0-47.0) 31.5 % (36.0-47.0) Mean Corpuscular Volume 101 fL (79-100) 101 fL (79-100) Mean Corpuscular Hemoglobin 33 pg (25-35) 33 pg (25-35) Mean Corpuscular Hemoglobin Concent 33 g/dL (31-37) 33 g/dL (31-37) Red Cell Distribution Width 14.2 % (11.5-14.5) 14.0 % (11.5-14.5) Platelet Count 100 x10^3/uL (140-400) 100 x10^3/uL (140-400) Neutrophils (%) (Auto) 68 % (31-73) 58 % (31-73) Lymphocytes (%) (Auto) 15 % (24-48) 23 % (24-48) Monocytes (%) (Auto) 14 % (0-9) 17 % (0-9) Eosinophils (%) (Auto) 2 % (0-3) 2 % (0-3) Basophils (%) (Auto) 1 % (0-3) 1 % (0-3) Neutrophils # (Auto) 3.1 x10^3/uL (1.8-7.7) 3.2 x10^3/uL (1.8-7.7) Lymphocytes # (Auto) 0.7 x10^3/uL (1.0-4.8) 1.3 x10^3/uL (1.0-4.8) Monocytes # (Auto) 0.6 x10^3/uL (0.0-1.1) 0.9 x10^3/uL (0.0-1.1) Eosinophils # (Auto) 0.1 x10^3/uL (0.0-0.7) 0.1 x10^3/uL (0.0-0.7) Basophils # (Auto) 0.0 x10^3/uL (0.0-0.2) 0.1 x10^3/uL (0.0-0.2) Sodium Level 138 mmol/L (136-145) 141 mmol/L (136-145) Potassium Level 4.1 mmol/L (3.5-5.1) 4.4 mmol/L (3.5-5.1) Chloride Level 101 mmol/L (98-107) 104 mmol/L (98-107) Carbon Dioxide Level 31 mmol/L (21-32) 30 mmol/L (21-32) Anion Gap 6 (6-14) 7 (6-14) Blood Urea Nitrogen 22 mg/dL (7-20) 34 mg/dL (7-20) Creatinine 5.4 mg/dL (0.6-1.0) 7.5 mg/dL (0.6-1.0) Estimated GFR (Cockcroft-Gault) 9.4 6.5 BUN/Creatinine Ratio 4 (6-20) Glucose Level 120 mg/dL (70-99) 85 mg/dL (70-99) Calcium Level 8.6 mg/dL (8.5-10.1) 8.5 mg/dL (8.5-10.1) Total Bilirubin 0.5 mg/dL (0.2-1.0) Aspartate Amino Transf (AST/SGOT) 26 U/L (15-37) Alanine Aminotransferase (ALT/SGPT) 22 U/L (14-59) Alkaline Phosphatase 81 U/L (46-116) Total Protein 7.3 g/dL (6.4-8.2) Albumin 2.8 g/dL (3.4-5.0) 2.6 g/dL (3.4-5.0) Albumin/Globulin Ratio 0.6 (1.0-1.7) Triglycerides Level 82 mg/dL (0-150) Cholesterol Level 146 mg/dL (0-200) LDL Cholesterol, Calculated 82 mg/dL (0-100) VLDL Cholesterol, Calculated 16 mg/dL (0-40) Non-HDL Cholesterol Calculated 98 mg/dL (0-129) HDL Cholesterol 48 mg/dL (40-60) Cholesterol/HDL Ratio 3.0 Thyroid Stimulating Hormone (TSH) 0.764 uIU/mL (0.358-3.74) Phosphorus Level 4.0 mg/dL (2.6-4.7) Laboratory Tests Test 03/21/21 06:15 White Blood Count 5.6 x10^3/uL (4.0-11.0) Red Blood Count 3.12 x10^6/uL (3.50-5.40) Hemoglobin 10.4 g/dL (12.0-15.5) Hematocrit 31.5 % (36.0-47.0) Mean Corpuscular Volume 101 fL (79-100) Mean Corpuscular Hemoglobin 33 pg (25-35) Mean Corpuscular Hemoglobin Concent 33 g/dL (31-37) Red Cell Distribution Width 14.0 % (11.5-14.5) Platelet Count 100 x10^3/uL (140-400) Neutrophils (%) (Auto) 58 % (31-73) Lymphocytes (%) (Auto) 23 % (24-48) Monocytes (%) (Auto) 17 % (0-9) Eosinophils (%) (Auto) 2 % (0-3) Basophils (%) (Auto) 1 % (0-3) Neutrophils # (Auto) 3.2 x10^3/uL (1.8-7.7) Lymphocytes # (Auto) 1.3 x10^3/uL (1.0-4.8) Monocytes # (Auto) 0.9 x10^3/uL (0.0-1.1) Eosinophils # (Auto) 0.1 x10^3/uL (0.0-0.7) Basophils # (Auto) 0.1 x10^3/uL (0.0-0.2) Sodium Level 141 mmol/L (136-145) Potassium Level 4.4 mmol/L (3.5-5.1) Chloride Level 104 mmol/L (98-107) Carbon Dioxide Level 30 mmol/L (21-32) Anion Gap 7 (6-14) Blood Urea Nitrogen 34 mg/dL (7-20) Creatinine 7.5 mg/dL (0.6-1.0) Estimated GFR (Cockcroft-Gault) 6.5 Glucose Level 85 mg/dL (70-99) Calcium Level 8.5 mg/dL (8.5-10.1) Phosphorus Level 4.0 mg/dL (2.6-4.7) Albumin 2.6 g/dL (3.4-5.0) Allergies Allergies Coded Allergies Type Severity Reaction Last Updated Verified No Known Drug Allergies 03/20/16 No Disposition/Orders: D/C to Home Justicifation of Admission Dx: Justifications for Admission: Justification of Admission Dx: Yes CHF: Hemodynamic Instability Sepsis: Hypoxemia HUY AVILES MD Mar 21, 2021 10:57
[2021-03-21] MEDS ORDERED: HYDR-2869 PO (10:59)
--- NOTE | 2021-03-21 11:00 | DISCH ---
DISCHARGE INSTRUCTIONS Condition on Discharge Condition on Discharge: Stable Activity After Discharge Activity Instructions for Disc: Activity as tolerated Bathing Instructions: Shower-keep dressing dry Driving Instructions after Dis: Do not drive today Diet after Discharge Diet after Discharge: Renal Dialysis Liquid Texture: Thin Liquid Wound Incision Care Wound/Incision Care: Ice to area for comfort, Keep wound elevated Checks after Discharge Checks after discharge: Check blood press - daily Contacting the DR. after DC Call your doctor for: If your condition worsens Follow-Up Follow up with: dialysis as directed Treatment/Equipment after DC Adaptive Equipment Issued: HUY Christine MD Mar 21, 2021 11:00
--- NOTE | 2021-03-21 12:52 | PDOC ---
CARDIO Progress Notes Date and Time Date of Service 03/21/21 Time of Evaluation 1215 Subjective Subjective: No Chest Pain, No Palpitations, No Dizziness, Other (breathing improved ) Vitals Vitals Vital Signs Date Time Temp Pulse Resp B/P (MAP) Pulse Ox O2 Delivery O2 Flow Rate FiO2 03/21/21 09:32 85 171/77 (108) 03/21/21 07:00 99.5 16 93 Room Air 99.5 03/20/21 20:00 2.0 Weight Weight [ ] Input and Output Intake and Output Intake and Output 03/21/21 07:00 Intake Total 510 ml Balance 510 ml Intake Oral 510 ml Laboratory Labs Laboratory Tests Test 03/21/21 06:15 White Blood Count 5.6 x10^3/uL (4.0-11.0) Red Blood Count 3.12 x10^6/uL (3.50-5.40) Hemoglobin 10.4 g/dL (12.0-15.5) Hematocrit 31.5 % (36.0-47.0) Mean Corpuscular Volume 101 fL (79-100) Mean Corpuscular Hemoglobin 33 pg (25-35) Mean Corpuscular Hemoglobin Concent 33 g/dL (31-37) Red Cell Distribution Width 14.0 % (11.5-14.5) Platelet Count 100 x10^3/uL (140-400) Neutrophils (%) (Auto) 58 % (31-73) Lymphocytes (%) (Auto) 23 % (24-48) Monocytes (%) (Auto) 17 % (0-9) Eosinophils (%) (Auto) 2 % (0-3) Basophils (%) (Auto) 1 % (0-3) Neutrophils # (Auto) 3.2 x10^3/uL (1.8-7.7) Lymphocytes # (Auto) 1.3 x10^3/uL (1.0-4.8) Monocytes # (Auto) 0.9 x10^3/uL (0.0-1.1) Eosinophils # (Auto) 0.1 x10^3/uL (0.0-0.7) Basophils # (Auto) 0.1 x10^3/uL (0.0-0.2) Sodium Level 141 mmol/L (136-145) Potassium Level 4.4 mmol/L (3.5-5.1) Chloride Level 104 mmol/L (98-107) Carbon Dioxide Level 30 mmol/L (21-32) Anion Gap 7 (6-14) Blood Urea Nitrogen 34 mg/dL (7-20) Creatinine 7.5 mg/dL (0.6-1.0) Estimated GFR (Cockcroft-Gault) 6.5 Glucose Level 85 mg/dL (70-99) Calcium Level 8.5 mg/dL (8.5-10.1) Phosphorus Level 4.0 mg/dL (2.6-4.7) Albumin 2.6 g/dL (3.4-5.0) Review of Systems Constitutional: yes: weakness, alert, oriented Ears/Nose/Throat: Yes: no symptom reported Eyes: Yes: no symptom reported Pulmonary: Yes no symptom reported Cardiovascular: Yes no symptom reported Gastrointestional: Yes: no symptom reported Genitourinary: Yes: no symptom reported Musculoskeletal: Yes: no symptom reported Skin: Yes no symptom reported Psychiatric/Neurological: Yes: no symptom reported Endocrine: Yes: no symptom reported Physical Exam HEENT: Neck Supple W Full Motion Chest: Symmetric LUNGS: Other (diminished bases) Heart: RRR, no thrills Abdomen: Soft N/T Extremities: Other (1+ bilateral LE edema ) Neurology: alert, oriented, follow commands Assessment Assessment 1. Acute respiratory failure in setting of acute CHF 2. Acute on chronic diastolic CHF; appears compensated. Echo with preserved LV systolic function 3. Hypertensive urgency; better controlled, but remains labile as she did not have meds prior to HD this am 4. Diabetes, II 5. ESRD on HD 6. Dietary noncompliance Recommendations Continue current antiHTN therapy Fluid offloading via HD 2000cc FR 2 Gm Na diet Outpatient ischemic evaluation Follow up in our office with Dr. Mosley as scheduled Supportive care Justicifation of Admission Dx: Justifications for Admission: Justification of Admission Dx: Yes CHF: Hemodynamic Instability Sepsis: Hypoxemia HAROON MOJICA APRN Mar 21, 2021 12:52
--- NOTE | 2021-03-21 13:08 | NUR ---
SS following up with discharge planning. SS reviewed pt chart and discussed with pt RN. Pt is currently on room air. PO diet. Discharge order on the chart for home with self care. SS phoned and faxed discharge information and clinical to [facility], ; fax [phone]. Pt's RN notified.
[2021-03-21 15:00] VITALS: BP 148/68
[2021-03-21] MEDS ORDERED: LISINOPRIL 20 MG TABLET PO SCH (15:30)
--- NOTE | 2021-03-21 16:46 | NUR ---
Discharge: Teaching verbal and written. Discharge teaching included SOA, Dialysis, HTN, CHF, ect. Patient verbalized understanding. IV removed without complications, catheter tip n-tact. All belongings with patient. Patient assisted off of unit via wheelchair accompanied by EVENT STAFF. Prescription sent to pharmacy by physician.
== END 2021-03-21 16:40 | disposition home or self-care (01) | DRG 291 ==
LOC: ER 07:36 → ED HOLD 09:45 → 2 NORTH 14:47
PROVIDERS: ADMIT Family Medicine; ATTEND Family Medicine
PROC: 5A1D70Z Performance of Urinary Filtration, Intermittent, Less than 6 Hours Per Day (ICD-10-PCS; principal; 2021-03-19)
PROC: 5A1D70Z Performance of Urinary Filtration, Intermittent, Less than 6 Hours Per Day (ICD-10-PCS; 2021-03-21)
DX: I13.2 Hypertensive heart and chronic kidney disease with heart failure and with stage 5 chronic kidney disease, or end stage renal disease (principal); J96.00 Acute respiratory failure, unspecified whether with hypoxia or hypercapnia; I50.33 Acute on chronic diastolic (congestive) heart failure; N18.6 End stage renal disease; E11.22 Type 2 diabetes mellitus with diabetic chronic kidney disease; E21.3 Hyperparathyroidism, unspecified; F17.210 Nicotine dependence, cigarettes, uncomplicated; I08.0 Rheumatic disorders of both mitral and aortic valves; I16.0 Hypertensive urgency; L40.50 Arthropathic psoriasis, unspecified; F32.9 Major depressive disorder, single episode, unspecified; G89.29 Other chronic pain; M19.90 Unspecified osteoarthritis, unspecified site; Z79.899 Other long term (current) drug therapy; Z82.49 Family history of ischemic heart disease and other diseases of the circulatory system; Z91.11 Patient's noncompliance with dietary regimen; Z91.19 Patient's noncompliance with other medical treatment and regimen; Z99.2 Dependence on renal dialysis; Z98.891 History of uterine scar from previous surgery; Z98.51 Tubal ligation status; D64.9 Anemia, unspecified
CPT/HCPCS: 36415; 71045; 80053; 80061; 80069; 82550; 83880; 84443; 84484; 85025; 93005; 93306; 96374; J0360; J1940; 99285-25; G0378

== ENCOUNTER → 2021-05-08 | Outpatient (CLI) | payer MEDICARE ==
[~2021-05-08] MED LIST changes: +ACET1TAB33 PO; +ACET500T68 PO; +CARV25TA PO; +REGADENOSON 0.4 MG/5 ML DISP.SYRIN. IV ONE; +ZINC30TA2 PO
--- NOTE | 2021-05-08 16:45 | RAD ---
MR#: [id number] Date of Study: 05/08/2021 Ordering Physician: FÁTIMA ARELLANO, Referring Physician: SILVA HALL Tech: RT Cody Crouch) (N) APPROVED REPORT Test Type: Pharmacological Stress Nurse/Tech: Samantha Peraza RN Test Indications: Chest pain Cardiac History: Hypertension,dialysis Medications: See Electronic Medical Record Medical History: See Electronic Medical Record Resting ECG: SR Resting Heart Rate: 77 bpm Resting Blood Pressure: 177/73mmHg Pretest Chest Pain: No chest pain Nurse/Tech Notes S1,S2 and lungs slightly diminished in bases. Consent: The procedure was explained to the patient in lay terms. Informed consent was witnessed. Samuel eout was entered into [employer]. History and Stress Test performed by RT Cody Marsh) (N) Pharm. Details Pharmacologic stress testing was performed using 0.4mg per 5ml of regadenoson given intravenously ove r 7-10 seconds. Stress Symptoms Dyspnea POST EXERCISE Reason for Termination: Infusion complete Target HR: No Max HR: 109 bpm Max Blood Pressure: 146/66mmHg Blood Pressure response to exercise: Normal blood pressure response during stress. Heart Rate response to exercise: WNL Chest Pain: No. Arrhythmia: No. ST Change: No. INTERPRETATION Stress EKG Conclusion: Baseline EKG showed sinus rhythm. No ischemic changes at peak stress. No arr hythmias. Imaging Protocol IMAGE PROTOCOL: Rest Tc-99m/stress Tc-99m 1 day Rest: Stress: Viability: Radiopharm.Tc99m [id number] Sestamibi Xmqu70fOc 31mCi Duration 13min. 13min. Img Date 05/08/2021 05/08/2021 Inj-Img Ucsk15bes. 60min. Rest Admin Site:IV - Right HandAdministrator:RT Cody Marsh)(N) Stress Admin Site: IV - Right HandAdministrator: RT Cody Crouch)(N) STRESS DATA End Diast. Vol.154.0mlLVEDV index BSA90.0ml End Syst. Vol.58.0mlLVESV index BSA34.0ml Myocardial Knba381.0gEject. Tfieffqz87.0% Stress Scores Regional WT1.00Summed WT14.00 Regional WM0.00Summed WM4.00 Study quality was good. Left Ventricular size was Normal at Rest and Stress. Lung uptake was . Left Ventricular ejection fraction is 61%. The rest and stress images show normal perfusion, normal contraction and thickening. LV Perf. Quant 17 Seg. SSS4.00 17 Seg. SRS0.00 17 Seg. SDS4.00 Stress Defect Extent (% LAD)0.00Rest Defect Extent (% LAD)0.00Rev. Defect Extent (% LAD)0.00 Stress Defect Extent (% LCX) 32.50Rest Defect Extent (% LCX)0.00Rev. Defect Extent (% LCX)21.30 Stress Defect Extent (% RCA)0.00Rest Defect Extent (% RCA)0.00Rev. Defect Extent (% RCA)0.00 Stress Defect Extent (% NEW)5.70Rest Defect Extent (% NEW)0.00Rev. Defect Extent (% NEW)3.70 Conclusion 1. Regadenoson cardioisotope stress test did not show any evidence of ischemia or infarct. 2. Normal left ventricular systolic function with ejection fraction calculated at 61%. 3. Low risk for cardiac events. Signed by : Ramu Montoya, Electronically Approved : 05/08/2021 16:44:53
== END ==
LOC: NM 09:38
PROVIDERS: ATTEND Internal Medicine Cardiovascular Disease
DX: R07.9 Chest pain, unspecified (principal)
CPT/HCPCS: 78452; 93017; A9500; J2785

== ENCOUNTER 2021-06-22 07:13 | Inpatient (IN) | payer MEDICARE ==
[2021-06-22] VITALS (15 sets, daily range): BP systolic 121–191; BP diastolic 62–93
[~2021-06-22] VITALS: Ht 165.1 cm; Wt 68.5 kg
[~2021-06-22 07:13] MED LIST changes: -REGADENOSON 0.4 MG/5 ML DISP.SYRIN. IV ONE
[2021-06-22] MEDS ORDERED: ASPIRIN ENTERIC COATED 325 MG TABLET.DR. PO ONE (07:45)
[2021-06-22] MEDS ORDERED: NITROGLYCERIN OINT 1 GM PACKET. TP ONE (08:00)
[2021-06-22] MEDS ORDERED: NITROGLYCERIN PREMIX 250 ML IV ONE ×2 (08:00→08:02)
[2021-06-22 08:38] LABS: BASO % 1 % (0-3); EOS # 0.2 x10^3/uL (0.0-0.7); EOS % 3 % (0-3); HEMOGLOBIN 12.8 g/dL (12.0-15.5); LYMPH # 1.8 x10^3/uL (1.0-4.8); LYMPH % 32 % (24-48); MEAN CORPUSCULAR HEMOGLOBIN 34 pg (25-35); MEAN CORPUSCULAR HGB CONC 33 g/dL (31-37); MEAN CORPUSCULAR VOLUME 103 fL (79-100); MONO # 0.6 x10^3/uL (0.0-1.1); MONO % 11 % (0-9); NEUT # 3.1 x10^3/uL (1.8-7.7); NEUT % 54 % (31-73); RED BLOOD COUNT 3.79 x10^6/uL (3.50-5.40); RED CELL DISTRIBUTION WIDTH 14.2 % (11.5-14.5); WHITE BLOOD COUNT 5.8 x10^3/uL (4.0-11.0)
[2021-06-22 08:43] LABS: BASE EXCESS COOX -5 mmol/L (-3-3); HCO3 COOX 22 mmol/L (21-28); METHEMOGLOBIN 0.3 % (0.0-1.9); OXYHEMOGLOBIN 94.7 %; PCO2 COOX 49 mmHg (35-46); PO2 COOX 93 mmHg (65-108); SAT O2 COOX 95 % (92-99)
[2021-06-22 08:48] LABS: PROTHROMBIN TIME PATIENT 12.7 SEC (11.7-14.0)
[2021-06-22 08:55] LABS: ALBUMIN 3.1 g/dL (3.4-5.0); ALBUMIN/GLOBULIN RATIO 0.6 (1.0-1.7); CALCIUM 8.2 mg/dL (8.5-10.1); CREATININE 8.2 mg/dL (0.6-1.0); GFR 5.8; MAGNESIUM 2.3 mg/dL (1.8-2.4); TOTAL BILIRUBIN 0.3 mg/dL (0.2-1.0); TOTAL PROTEIN 8.2 g/dL (6.4-8.2)
[2021-06-22 09:06] LABS: CREATINE KINASE 116 U/L (26-192)
--- NOTE | 2021-06-22 09:07 | RAD ---
Single AP view of the chest. Comparison: 03/19/2021. Indication: Dyspnea Findings: The heart is enlarged but stable. There is no pneumothorax or effusion. Marked worsening of the prev iously visualized bilateral interstitial opacities particularly in the left lung apex and right lung base. Impression: 1. Diffuse bilateral interstitial opacities identified. May be severe pulmonary edema versus atypical infection. Electronically signed by: Tr Orozco MD (06/22/2021 9:04 AM) [id number]
[2021-06-22 09:09] LABS: POTASSIUM 6.5 mmol/L (3.5-5.1)
[2021-06-22] MEDS ORDERED: INSULIN REGULAR 100 UNIT/ML 3ML VIAL. IV ONE (09:15)
[2021-06-22] MEDS ORDERED: CALCIUM GLUCONATE 1,000 MG/10 ML VIAL. IVP ONE (09:15)
[2021-06-22] MEDS ORDERED: BUMETANIDE 1 MG/4 ML VIAL. IV ONE (09:15)
[2021-06-22] MEDS ORDERED: DEXTROSE 50% 25 GM / 50ML DISP.SYRIN. IV ONE (09:15)
[2021-06-22 09:41] LABS: PLATELET COUNT 124 x10^3/uL (140-400)
--- NOTE | 2021-06-22 09:43 | PHYS DOC ---
Past Medical History Past Medical History: Arthritis, CHF, Depression, Diabetes-Type II, Hypertension, Renal Failure Additional Past Medical Histor: PSORIATIC ARTHRITIS, DIALYSIS Past Medical History Limited secondary to respiratory distress Past Surgical History: , Tubal ligation Additional Past Surgical Histo: L ROTATOR CUFF,left upper arm shunt Past Surgical History Limited secondary to respiratory distress Smoking Status: Never Smoker Alcohol Use: None Drug Use: None Social History Limited secondary to respiratory distress General Adult EDM: Chief Complaint: SHORTNESS OF BREATH HPI: HPI: Patient is a 70-year-old female presents with report of progressive shortness of breath and cough upon waking this morning. Patient does have a history of congestive heart failure as well as end-stage renal disease requiring dialysis Friday/Friday/Friday. Patient does report attending her dialysis appointment on Friday but has not gone to appointment today. Patient denies any fever or chills. Patient does report some associated nausea and vomiting. Patient reports she feels "overloaded ". Denies known exposure to COVID-19. Patient has received both [employer] vaccinations. History of present illness limited secondary to respiratory distress Review of Systems: Review of Systems: Constitutional: Denies fever or chills Respiratory: Reports cough and shortness of breath Cardiovascular: Denies chest pain or palpitations GI: Reports nausea and vomiting Integument: Denies rash or skin lesions Neurologic: Denies headache, focal weakness or sensory changes Review of systems limited secondary to respiratory distress Heart Score: C/O Chest Pain: N/A Current Medications: Current Medications Medications (Trade) Dose Ordered Sig/[facility] Start Time Stop Time Status Last Admin Dose Admin Aspirin (Ecotrin) 325 mg 1X ONCE 06/22/21 07:45 06/22/21 07:46 DC 06/22/21 07:53 325 MG Bumetanide (Bumex) 1 mg 1X ONCE 06/22/21 09:15 06/22/21 09:18 DC Calcium Gluconate (Calcium Gluconate) 1,000 mg 1X ONCE 06/22/21 09:15 06/22/21 09:18 DC Dextrose (Dextrose 50%-Water Syringe) 25 gm 1X ONCE 06/22/21 09:15 06/22/21 09:18 DC Insulin Human Regular (HumuLIN R VIAL) 10 unit 1X ONCE 06/22/21 09:15 06/22/21 09:18 DC Nitroglycerin (Nitro-Bid Oint) 1 inch 1X ONCE 06/22/21 08:00 06/22/21 08:01 DC 06/22/21 07:53 1 INCH Nitroglycerin/ Dextrose 250 ml @ As Directed STK-MED ONCE 06/22/21 08:02 06/22/21 08:04 DC Allergies: Allergies: Allergies Coded Allergies Type Severity Reaction Last Updated Verified No Known Drug Allergies 03/20/16 No Physical Exam: PE: Constitutional: Well developed, well nourished, severe respiratory distress HENT: Normocephalic, atraumatic Eyes: Conjunctiva normal, no discharge Neck: Normal range of motion, supple Lungs & Thorax: Severe respiratory distress, coarse breath sounds bilaterally, equal chest rise and fall Cardiovascular: Tachycardia, regular rhythm Abdomen: Soft, no tenderness Skin: Warm, dry, no erythema, no rash Extremities: No tenderness, ROM intact, no edema Neurologic: Alert and oriented X 3, moves all extremities, no focal deficits noted Psychologic: Affect anxious, judgment normal Current Patient Data: Labs: Laboratory Tests Test 06/22/21 08:25 06/22/21 08:39 White Blood Count 5.8 x10^3/uL (4.0-11.0) Red Blood Count 3.79 x10^6/uL (3.50-5.40) Hemoglobin 12.8 g/dL (12.0-15.5) Hematocrit 39.0 % (36.0-47.0) Mean Corpuscular Volume 103 fL (79-100) H Mean Corpuscular Hemoglobin 34 pg (25-35) Mean Corpuscular Hemoglobin Concent 33 g/dL (31-37) Red Cell Distribution Width 14.2 % (11.5-14.5) Platelet Count 124 x10^3/uL (140-400) L Neutrophils (%) (Auto) 54 % (31-73) Lymphocytes (%) (Auto) 32 % (24-48) Monocytes (%) (Auto) 11 % (0-9) H Eosinophils (%) (Auto) 3 % (0-3) Basophils (%) (Auto) 1 % (0-3) Neutrophils # (Auto) 3.1 x10^3/uL (1.8-7.7) Lymphocytes # (Auto) 1.8 x10^3/uL (1.0-4.8) Monocytes # (Auto) 0.6 x10^3/uL (0.0-1.1) Eosinophils # (Auto) 0.2 x10^3/uL (0.0-0.7) Basophils # (Auto) 0.0 x10^3/uL (0.0-0.2) Prothrombin Time 12.7 SEC (11.7-14.0) Prothrombin Time INR 1.0 (0.8-1.1) Activated Partial Thromboplast Time 27 SEC (24-38) Sodium Level 139 mmol/L (136-145) Potassium Level 6.5 mmol/L (3.5-5.1) *H Chloride Level 102 mmol/L (98-107) Carbon Dioxide Level 26 mmol/L (21-32) Anion Gap 11 (6-14) Blood Urea Nitrogen 50 mg/dL (7-20) H Creatinine 8.2 mg/dL (0.6-1.0) H Estimated GFR (Cockcroft-Gault) 5.8 BUN/Creatinine Ratio 6 (6-20) Glucose Level 197 mg/dL (70-99) H Calcium Level 8.2 mg/dL (8.5-10.1) L Magnesium Level 2.3 mg/dL (1.8-2.4) Total Bilirubin 0.3 mg/dL (0.2-1.0) Aspartate Amino Transferase (AST) 45 U/L (15-37) H Alanine Aminotransferase (ALT) 29 U/L (14-59) Alkaline Phosphatase 123 U/L (46-116) H Creatine Kinase 116 U/L (26-192) Creatine Kinase MB (Mass) 0.9 ng/mL (0.0-3.6) Creatine Kinase MB Relative Index 0.8 % (0-4) Troponin I Quantitative 0.021 ng/mL (0.000-0.055) OX-Vlw-M-Type Natriuretic Peptide > 93635 pg/mL (0-124) H Total Protein 8.2 g/dL (6.4-8.2) Albumin 3.1 g/dL (3.4-5.0) L Albumin/Globulin Ratio 0.6 (1.0-1.7) L O2 Saturation 95 % (92-99) Arterial Blood pH 7.28 (7.35-7.45) L Arterial Blood pCO2 at Patient Temp 49 mmHg (35-46) H Arterial Blood pO2 at Patient Temp 93 mmHg (65-108) Arterial Blood HCO3 22 mmol/L (21-28) Arterial Blood Base Excess -5 mmol/L (-3-3) L Oxyhemoglobin 94.7 % Methemoglobin 0.3 % (0.0-1.9) Carbon Monoxide, Quantitative 0.3 % (0.0-1.9) FiO2 70 Laboratory Tests 06/22/21 08:25 Laboratory Tests 06/22/21 08:25 Vital Signs: Vital Signs Date Time Temp Pulse Resp B/P (MAP) Pulse Ox O2 Delivery O2 Flow Rate FiO2 06/22/21 08:54 100 173/82 (112) 94 BiPAP/CPAP 06/22/21 07:20 97.7 32 97.7 EKG: EKG: @0835 Sinus tachycardia at 109bpm, NO ST elevation, QRS 88ms, QT/QTc 326/441ms, hyperacute t waves in V2-V4 Radiology/Procedures: Radiology/Procedures: PROCEDURE: PORTABLE CHEST 1V Single AP view of the chest. Comparison: 03/19/2021. Indication: Dyspnea Findings: The heart is enlarged but stable. There is no pneumothorax or effusion. Marked worsening of the previously visualized bilateral interstitial opacities particularly in the left lung apex and right lung base. Impression: 1. Diffuse bilateral interstitial opacities identified. May be severe pulmonary edema versus atypical infection. Electronically signed by: Tr Orozco MD (06/22/2021 9:04 AM) [id number] Course & Med Decision Making: Course & Med Decision Making Pertinent Labs and Imaging studies reviewed. (See chart for details) Patient presents by private vehicle with report of progressive shortness of breath. Patient noted to have O2 sats down to 70% on room air upon arrival. Patient placed on nonrebreather with improvement of O2 sat. Patient does have a history of end-stage renal disease on dialysis. Patient sounds wet. Patient does report attending her dialysis appointment on Friday. Patient has not yet attended appointment today. Denies fever or chills. Denies known Covid exposure. Patient has received Covid vaccinations. Patient subsequently started to drop her O2 sats in department. Blood pressure significantly elevated. Nitropaste and nitro drip initiated. Patient requiring BiPAP. Patient maintained O2 sats while with BiPAP. Chest x-ray confirmed vascular congestion. Labs obtained and posted to chart. Hyperkalemia noted. Calcium gluconate, insulin, and dextrose provided. Discussed case with Dr. Cerda (nephrology) regarding patient's need for emergent dialysis. Dr. Cerda evaluated patient in the ER and in agreement with emergent dialysis. Patient requiring admission for further evaluation and treatment. Discussed with Dr. Orourke (hospitalist) who is in agreement with ICU admission. Discussed findings and plan with patient, who acknowledges understanding and agreement. Dragon Disclaimer: Dragon Disclaimer: This electronic medical record was generated, in whole or in part, using a voice recognition dictation system. Departure Departure Impression: Primary Impression: Respiratory failure Qualified Codes: J96.01 - Acute respiratory failure with hypoxia Additional Impressions: Hypoxia End stage renal disease on dialysis Hyperkalemia Flash pulmonary edema Hypertensive emergency Disposition: 09 ADMITTED INPATIENT Admitting Physician: CHAO Colin) Condition: GUARDED Referrals: CARA MONIQUE MD (PCP) Critical Care Time Critical care time was 30 minutes which includes time at bedside, spent in discussion of patient's care with specialists and/or family members, with interpretation of laboratory and/or radiological studies and is exclusive of procedures. RONALDO MARCOS DO Jun 22, 2021 09:43
[2021-06-22] MEDS ORDERED: ONDANSETRON PF 4 MG/2 ML VIAL. IVP PRN ×2 (10:00→11:30)
[2021-06-22] MEDS ORDERED: DEXTROSE 50% 25 GM / 50ML DISP.SYRIN. IV PRN ×2 (10:00→11:15)
--- NOTE | 2021-06-22 11:13 | PDOC1 ---
History and Physical Date of Admission Date of Admission DATE: 06/22/21 TIME: 10:55 Identification/Chief Complaint Chief Complaint Shortness of breath Source Source: Chart review, Patient History of Present Illness History of Present Illness Ms. Tucker is a 30-year-old female with past medical history ESRD on HD (Friday/Friday/Friday), CHF, HTN, who presents to the ED with complaints of shortness of breath this morning. Her last hemodialysis session was on Friday, but has not had dialysis today. Upon arrival in the ED blood pressure 219/119 mmHg. Labs showing WBC 5.8, platelets 124, potassium 6.5, BUN 50, creatinine 8.2, CBG 137, albumin 3.1, troponin 0.021, BNP >35,000. Chest x- ray showed diffuse bilateral interstitial opacities, likely representing severe pulmonary edema. She was placed on BiPAP and nitroglycerin drip with some improvement. States she has been fully vaccinated against COVID-19. Will admit patient to ICU for further medical management. Past Medical History Cardiovascular: CHF, HTN GI: Constipation Heme/Onc: Anemia NOS Hepatobiliary: No pertinent hx Psych: Depression Renal/: Chronic renal failure Endocrine: Diabetes Past Surgical History Past Surgical History: Tubal Ligation, Other Family History Family History: Hypertension Social History Smoke: No ALCOHOL: none Drugs: None Current Problem List Problem List Problems Medical Problems: (1) End stage renal disease on dialysis Status: Acute (2) Flash pulmonary edema Status: Acute (3) Hyperkalemia Status: Acute (4) Hypertensive emergency Status: Acute (5) Hypoxia Status: Acute (6) Respiratory failure Status: Acute Current Medications Current Medications Current Medications Aspirin (Ecotrin) 325 mg 1X ONCE PO Last administered on 06/22/21at 07:53; Start 06/22/21 at 07:45; Stop 06/22/21 at 07:46; Status DC Nitroglycerin (Nitro-Bid Oint) 1 inch 1X ONCE TP Last administered on 06/22/21at 07:53; Start 06/22/21 at 08:00; Stop 06/22/21 at 08:01; Status DC Nitroglycerin/ Dextrose 250 ml @ 1.5 mls/hr 1X ONCE IV Last administered on 06/22/21at 08:00; Start 06/22/21 at 08:00; Stop 06/29/21 at 06:39 Nitroglycerin/ Dextrose 250 ml @ As Directed STK-MED ONCE IV ; Start 06/22/21 at 08:02; Stop 06/22/21 at 08:04; Status DC Calcium Gluconate (Calcium Gluconate) 1,000 mg 1X ONCE IVP Last administered on 06/22/21at 09:44; Start 06/22/21 at 09:15; Stop 06/22/21 at 09:18; Status DC Insulin Human Regular (HumuLIN R VIAL) 10 unit 1X ONCE IV Last administered on 06/22/21at 09:43; Start 06/22/21 at 09:15; Stop 06/22/21 at 09:18; Status DC Bumetanide (Bumex) 1 mg 1X ONCE IV Last administered on 06/22/21at 09:39; Start 06/22/21 at 09:15; Stop 06/22/21 at 09:18; Status DC Dextrose (Dextrose 50%-Water Syringe) 25 gm 1X ONCE IV Last administered on 06/22/21at 09:36; Start 06/22/21 at 09:15; Stop 06/22/21 at 09:18; Status DC Ondansetron HCl (Zofran) 4 mg PRN Q8HRS PRN IVP NAUSEA/VOMITING; Start 06/22/21 at 10:00; Stop 06/23/21 at 09:59 Insulin Human Lispro (HumaLOG) 0-5 UNITS TIDWMEALS SQ ; Start 06/22/21 at 12:00 Dextrose (Dextrose 50%-Water Syringe) 12.5 gm PRN Q15MIN PRN IV SEE COMMENTS; Start 06/22/21 at 10:00 Active Scripts Active Hydralazine Hcl 50 Mg Tablet 100 Mg PO BID 30 Days Norvasc (Amlodipine Besylate) 10 Mg Tablet 10 Mg PO DAILY Phoslo (Calcium Acetate) 667 Mg Capsule 667 Mg PO TIDWMEALS Reported Acetaminophen 500 Mg Tablet 1 Tab PO PRN Q6HRS PRN 15 Days Zinc (Zinc Gluconate) 30 Mg Tablet 30 Mg PO DAILY Coreg (Carvedilol) 25 Mg Tablet 25 Mg PO BIDWMEALS Renal Vitamin Tablet (Folic Acid/Vit Bcomp,C) 0.8 Mg Tablet 0.8 Mg PO Allergies Allergies: Coded Allergies: No Known Drug Allergies (Unverified , 03/20/16) ROS Review of System GENERAL: No history of weight change, weakness or fevers. SKIN: No bruising, hair changes or rashes. EYES: No blurred, double or loss of vision. NOSE AND THROAT: No history of nosebleeds, hoarseness or sore throat. HEART: Denies chest pain, denies palpitations. LUNGS: Shortness of breath. Denies cough, hemoptysis, or wheezing. GASTROINTESTINAL: Denies nausea, vomiting, abdominal pain. GENITOURINARY: Denies dysuria, frequency, urgency, hematuria. NEUROLOGIC: Denies history of numbness, tingling, tremor or weakness. PSYCHIATRIC: Denies anxiety, denies depression. ENDOCRINE: No history of heat or cold intolerance, polyuria or polydipsia. EXTREMITIES: Denies muscle weakness, joint pain, pain on walking or stiffness. Physical Exam Physical Exam General: Alert, Oriented X3, Cooperative, moderate distress HEENT: Atraumatic, EOMI Lungs: Bibasilar rales Heart: Tachycardic, no rubs Cardiovascular: S1, S2 Abdomen: Normal bowel sounds, Soft, No tenderness Extremities: 3+ bilateral leg edema Skin: No breakdown, No significant lesion Neuro: Normal speech, Sensation intact Psych/Mental Status: Mental status NL, Mood NL Vitals Vitals Vital Signs Date Time Temp Pulse Resp B/P (MAP) Pulse Ox O2 Delivery O2 Flow Rate FiO2 06/22/21 10:35 94 06/22/21 08:54 100 173/82 (112) BiPAP/CPAP 06/22/21 07:20 97.7 32 97.7 Labs Labs Laboratory Tests Test 06/22/21 08:25 06/22/21 08:39 06/22/21 09:30 White Blood Count 5.8 x10^3/uL (4.0-11.0) Red Blood Count 3.79 x10^6/uL (3.50-5.40) Hemoglobin 12.8 g/dL (12.0-15.5) Hematocrit 39.0 % (36.0-47.0) Mean Corpuscular Volume 103 fL (79-100) Mean Corpuscular Hemoglobin 34 pg (25-35) Mean Corpuscular Hemoglobin Concent 33 g/dL (31-37) Red Cell Distribution Width 14.2 % (11.5-14.5) Platelet Count 124 x10^3/uL (140-400) Neutrophils (%) (Auto) 54 % (31-73) Lymphocytes (%) (Auto) 32 % (24-48) Monocytes (%) (Auto) 11 % (0-9) Eosinophils (%) (Auto) 3 % (0-3) Basophils (%) (Auto) 1 % (0-3) Neutrophils # (Auto) 3.1 x10^3/uL (1.8-7.7) Lymphocytes # (Auto) 1.8 x10^3/uL (1.0-4.8) Monocytes # (Auto) 0.6 x10^3/uL (0.0-1.1) Eosinophils # (Auto) 0.2 x10^3/uL (0.0-0.7) Basophils # (Auto) 0.0 x10^3/uL (0.0-0.2) Prothrombin Time 12.7 SEC (11.7-14.0) Prothromb Time International Ratio 1.0 (0.8-1.1) Activated Partial Thromboplast Time 27 SEC (24-38) Sodium Level 139 mmol/L (136-145) Potassium Level 6.5 mmol/L (3.5-5.1) Chloride Level 102 mmol/L (98-107) Carbon Dioxide Level 26 mmol/L (21-32) Anion Gap 11 (6-14) Blood Urea Nitrogen 50 mg/dL (7-20) Creatinine 8.2 mg/dL (0.6-1.0) Estimated GFR (Cockcroft-Gault) 5.8 BUN/Creatinine Ratio 6 (6-20) Glucose Level 197 mg/dL (70-99) Calcium Level 8.2 mg/dL (8.5-10.1) Magnesium Level 2.3 mg/dL (1.8-2.4) Total Bilirubin 0.3 mg/dL (0.2-1.0) Aspartate Amino Transf (AST/SGOT) 45 U/L (15-37) Alanine Aminotransferase (ALT/SGPT) 29 U/L (14-59) Alkaline Phosphatase 123 U/L (46-116) Creatine Kinase 116 U/L (26-192) Creatine Kinase MB (Mass) 0.9 ng/mL (0.0-3.6) Creatine Kinase MB Relative Index 0.8 % (0-4) Troponin I Quantitative 0.021 ng/mL (0.000-0.055) CA-Asm-E-Type Natriuretic Peptide > 69769 pg/mL (0-124) Total Protein 8.2 g/dL (6.4-8.2) Albumin 3.1 g/dL (3.4-5.0) Albumin/Globulin Ratio 0.6 (1.0-1.7) O2 Saturation 95 % (92-99) Arterial Blood pH 7.28 (7.35-7.45) Arterial Blood pCO2 at Patient Temp 49 mmHg (35-46) Arterial Blood pO2 at Patient Temp 93 mmHg (65-108) Arterial Blood HCO3 22 mmol/L (21-28) Arterial Blood Base Excess -5 mmol/L (-3-3) Oxyhemoglobin 94.7 % Methemoglobin 0.3 % (0.0-1.9) Carbon Monoxide, Quantitative 0.3 % (0.0-1.9) FiO2 70 SARS-CoV-2 Antigen (Rapid) Negative (NEGATIVE) Laboratory Tests Test 06/22/21 08:25 06/22/21 08:39 06/22/21 09:30 White Blood Count 5.8 x10^3/uL (4.0-11.0) Red Blood Count 3.79 x10^6/uL (3.50-5.40) Hemoglobin 12.8 g/dL (12.0-15.5) Hematocrit 39.0 % (36.0-47.0) Mean Corpuscular Volume 103 fL (79-100) Mean Corpuscular Hemoglobin 34 pg (25-35) Mean Corpuscular Hemoglobin Concent 33 g/dL (31-37) Red Cell Distribution Width 14.2 % (11.5-14.5) Platelet Count 124 x10^3/uL (140-400) Neutrophils (%) (Auto) 54 % (31-73) Lymphocytes (%) (Auto) 32 % (24-48) Monocytes (%) (Auto) 11 % (0-9) Eosinophils (%) (Auto) 3 % (0-3) Basophils (%) (Auto) 1 % (0-3) Neutrophils # (Auto) 3.1 x10^3/uL (1.8-7.7) Lymphocytes # (Auto) 1.8 x10^3/uL (1.0-4.8) Monocytes # (Auto) 0.6 x10^3/uL (0.0-1.1) Eosinophils # (Auto) 0.2 x10^3/uL (0.0-0.7) Basophils # (Auto) 0.0 x10^3/uL (0.0-0.2) Prothrombin Time 12.7 SEC (11.7-14.0) Prothromb Time International Ratio 1.0 (0.8-1.1) Activated Partial Thromboplast Time 27 SEC (24-38) Sodium Level 139 mmol/L (136-145) Potassium Level 6.5 mmol/L (3.5-5.1) Chloride Level 102 mmol/L (98-107) Carbon Dioxide Level 26 mmol/L (21-32) Anion Gap 11 (6-14) Blood Urea Nitrogen 50 mg/dL (7-20) Creatinine 8.2 mg/dL (0.6-1.0) Estimated GFR (Cockcroft-Gault) 5.8 BUN/Creatinine Ratio 6 (6-20) Glucose Level 197 mg/dL (70-99) Calcium Level 8.2 mg/dL (8.5-10.1) Magnesium Level 2.3 mg/dL (1.8-2.4) Total Bilirubin 0.3 mg/dL (0.2-1.0) Aspartate Amino Transf (AST/SGOT) 45 U/L (15-37) Alanine Aminotransferase (ALT/SGPT) 29 U/L (14-59) Alkaline Phosphatase 123 U/L (46-116) Creatine Kinase 116 U/L (26-192) Creatine Kinase MB (Mass) 0.9 ng/mL (0.0-3.6) Creatine Kinase MB Relative Index 0.8 % (0-4) Troponin I Quantitative 0.021 ng/mL (0.000-0.055) GQ-Cbh-E-Type Natriuretic Peptide > 60177 pg/mL (0-124) Total Protein 8.2 g/dL (6.4-8.2) Albumin 3.1 g/dL (3.4-5.0) Albumin/Globulin Ratio 0.6 (1.0-1.7) O2 Saturation 95 % (92-99) Arterial Blood pH 7.28 (7.35-7.45) Arterial Blood pCO2 at Patient Temp 49 mmHg (35-46) Arterial Blood pO2 at Patient Temp 93 mmHg (65-108) Arterial Blood HCO3 22 mmol/L (21-28) Arterial Blood Base Excess -5 mmol/L (-3-3) Oxyhemoglobin 94.7 % Methemoglobin 0.3 % (0.0-1.9) Carbon Monoxide, Quantitative 0.3 % (0.0-1.9) FiO2 70 SARS-CoV-2 Antigen (Rapid) Negative (NEGATIVE) Images Images [facility] [address] [place] [address] IMAGING REPORT Signed PATIENT: SANJAY TUCKER ACCOUNT: [id number] : 1950 LOCATION: ER AGE: 70 SEX: F EXAM STATUS: PRE ER ORD. PHYSICIAN: RONALDO MARCOS DO REASON: dyspnea.IV AND BLOOD DRAW. 8:05AM, VELOZ 0850 PROCEDURE: PORTABLE CHEST 1V Single AP view of the chest. Comparison: 03/19/2021. Indication: Dyspnea Findings: The heart is enlarged but stable. There is no pneumothorax or effusion. Marked worsening of the previously visualized bilateral interstitial opacities particularly in the left lung apex and right lung base. Impression: 1. Diffuse bilateral interstitial opacities identified. May be severe pulmonary edema versus atypical infection. VTE Prophylaxis Ordered VTE Prophylaxis Devices: No VTE Pharmacological Prophylaxi: Yes Assessment/Plan Assessment/Plan Acute respiratory failure with hypoxia Hypertensive emergency Blood pulmonary edema ESRD on HD Hyperkalemia DM2 Plan: Patient will be admitted to ICU on nitroglycerin gtt and BiPAP. Consultation placed to nephrology for emergent hemodialysis Basal insulin with LDSS (goal blood sugar [id number]) Hemoglobin A1c pending. Last HbA1c 7.4 in 2016. Resume home medications FEN - Renal diet PPX - Heparin FULL CODE Dispo - inpatient for above Critical care time 30 minutes spent reviewing charts, reviewing labs, reviewing imaging, and discussion with Dr. Marcos Surrogate decision-maker is her daughter (Marilee Purvis) Justifications for Admission Other Justification RAIN CROCKETT MD Jun 22, 2021 11:13
[2021-06-22] MEDS ORDERED: fentaNYL PF VIAL 100 MCG/2 ML VIAL IV PRN (11:30)
[2021-06-22] MEDS ORDERED: ACETAMINOPHEN 325 MG TABLET. PO PRN (11:30)
[2021-06-22] MEDS ORDERED: HYDROcodone/APAP 5/325MG 1 TAB TABLET PO PRN (11:30)
[2021-06-22] MEDS ORDERED: ZOLPIDEM 5 MG TABLET. PO PRN (11:30)
[2021-06-22] MEDS ORDERED: 0.9 % SODIUM CHLORIDE 10 ML DISP.SYRIN. IV PRN (11:30)
[2021-06-22] MEDS ORDERED: MAGNESIUM HYDROXIDE 2,400 MG/30 ML ORAL.SUSP. PO PRN (11:30)
[2021-06-22] MEDS ORDERED: CARV12.511 PO (11:36)
[2021-06-22] MEDS ORDERED: SPIR25TA5 PO (11:36)
--- NOTE | 2021-06-22 11:45 | NUR ---
Pt admitted to room 110 from the ED via stretcher. Pt assisted to ICU bed and placed on monitoring equipment. See assessment for further details. Dialysis notified of pts arrival to the room.
[2021-06-22] MEDS: CALCIUM ACETATE 667 MG CAPSULE PO SCH ×2 (12:00→18:30)
[2021-06-22] MEDS: CARVEDILOL 12.5 MG TABLET. PO SCH ×2 (12:00→18:30)
[2021-06-22] MEDS ORDERED: INSULIN LISPRO 300 UNITS/3 ML VIAL. SQ SCH (12:00)
[2021-06-22] MEDS: INSULIN LISPRO 300 UNITS/3 ML VIAL. SQ SCH ×2 (12:44→17:00)
[2021-06-22] MEDS ORDERED: ALBUMIN HUMAN 25% 200 ML IV PRN (13:30)
[2021-06-22] MEDS ORDERED: DIALYSIS PATIENT. MC PRN (13:30)
[2021-06-22] MEDS ORDERED: diphenhydrAMINE 50 MG/ML VIAL IV PRN ×2 (13:30)
--- NOTE | 2021-06-22 15:26 | PDOC2 ---
CONSULT Date of Consult Date of Consult DATE: 06/22/21 TIME: 14:58 Reason for Consult Reason for Consult: HYPERKALEMIA, VOLUME OVERLOAD AND ESRD Referring Physician Referring Physician: BON Identification/Chief Complaint Chief Complaint SOB Source Source: Chart review, Patient History of Present Illness Reason for Visit: THIS IS A 30 YR OLD PT WITH ESRD. SHE HAS OP HD ON MWF. SHE HAS BEEN TO HER TREATMENTS THIS WEEK. SHE HAS ESRD DUE TO END ORGAN DAMAGE FROM DM II AND HTN. SHE HAS A LEFT ARM BRACHIO-BASILIC FISTULA HER ACCESS FOR HD. SHE HAS BEEN ON HD SINCE 2016. LAST RENAL IMAGING IN 2016 SHOWED NORMAL KIDNEY MORPHOLOGY AND BILATERAL SIMPLE CYSTS. SHE PRESENTS WITH SOB, ORTHOPNEA AND PND. INITIAL EXAM NOTABLE FOR EDEMA AND PULMONARY RALES. SHE IS CLEARLY DYSPNEIC. HER IMAGING IS NOTABLE FOR PULMONARY VASCULAR CONGESTION SEEN ON HER CXRAY WITH DIFFUSE INTERSTITIAL OPACITIES. THERE IS NO SIGNS OF INFECTION AND THIS IS THEREFORE MOST C/W VOLUME OVERLOAD/CHF. [place] [address]. SHE WOULD BE EXPECTED TO HAVE A CHRONICALLY ELEVATED BNP DUE TO HER ESRD STATUS HOWEVER THE DEGREE OF ELEVATION, ALONG WITH HER FINDINGS ARE MOST C/W VOLUME OVERLOAD. HERE LABS ARE C/W ESRD. SHE HAS HYPERKALEMIA. NO ANEMIA NOTED. OTHERWISE HER ACID BASE BALANCE IS C/W WITH A COMBINED METABOLIC AND RESPIRATORY ACIDOSIS AND SUBSEQUENT ACIDEMIA. SHE IS CURRENTLY ON BIPAP ON 70% FIO2 SUPPLEMENTAL OXYGEN. I DISCUSSED THE CASE WITH THE ER PHYSICIAN AND SUGGESTED ADMITTING HER TO THE ICU. SHE IS ALSO VERY HYPERTENSIVE WITH INITIAL BP OF 245/119. STATES SHE HAS TAKEN ALL OF HER MEDICATIONS TODAY. Past Medical History Cardiovascular: CHF, HTN GI: Constipation Heme/Onc: Anemia NOS Hepatobiliary: No pertinent hx Psych: Depression Renal/: Chronic renal failure Endocrine: Diabetes, Hyperparathyroidism Past Surgical History Past Surgical History HX OF TDC. HX OF LEFT ARM BB AVF CREATION. Past Surgical History: Tubal Ligation, Other Family History Family History: Hypertension Social History No ALCOHOL: none Drugs: None Lives: Alone Current Problem List Problem List Problems Medical Problems: (1) End stage renal disease on dialysis Status: Acute (2) Flash pulmonary edema Status: Acute (3) Hyperkalemia Status: Acute (4) Hypertensive emergency Status: Acute (5) Hypoxia Status: Acute (6) Respiratory failure Status: Acute Current Medications Current Medications Current Medications Aspirin (Ecotrin) 325 mg 1X ONCE PO Last administered on 06/22/21at 07:53; Start 06/22/21 at 07:45; Stop 06/22/21 at 07:46; Status DC Nitroglycerin (Nitro-Bid Oint) 1 inch 1X ONCE TP Last administered on 06/22/21at 07:53; Start 06/22/21 at 08:00; Stop 06/22/21 at 08:01; Status DC Nitroglycerin/ Dextrose 250 ml @ 1.5 mls/hr 1X ONCE IV Last administered on 06/22/21at 08:00; Start 06/22/21 at 08:00; Stop 06/29/21 at 06:39 Nitroglycerin/ Dextrose 250 ml @ As Directed STK-MED ONCE IV ; Start 06/22/21 at 08:02; Stop 06/22/21 at 08:04; Status DC Calcium Gluconate (Calcium Gluconate) 1,000 mg 1X ONCE IVP Last administered on 06/22/21at 09:44; Start 06/22/21 at 09:15; Stop 06/22/21 at 09:18; Status DC Insulin Human Regular (HumuLIN R VIAL) 10 unit 1X ONCE IV Last administered on 06/22/21at 09:43; Start 06/22/21 at 09:15; Stop 06/22/21 at 09:18; Status DC Bumetanide (Bumex) 1 mg 1X ONCE IV Last administered on 06/22/21at 09:39; Start 06/22/21 at 09:15; Stop 06/22/21 at 09:18; Status DC Dextrose (Dextrose 50%-Water Syringe) 25 gm 1X ONCE IV Last administered on 06/22/21at 09:36; Start 06/22/21 at 09:15; Stop 06/22/21 at 09:18; Status DC Ondansetron HCl (Zofran) 4 mg PRN Q8HRS PRN IVP NAUSEA/VOMITING Last admini stered on 06/22/21at 13:37; Start 06/22/21 at 10:00; Stop 06/23/21 at 09:59 Insulin Human Lispro (HumaLOG) 0-5 UNITS TIDWMEALS SQ ; Start 06/22/21 at 12:00; Status Cancel Dextrose (Dextrose 50%-Water Syringe) 12.5 gm PRN Q15MIN PRN IV SEE COMMENTS; Start 06/22/21 at 10:00; Status Cancel Amlodipine Besylate (Norvasc) 10 mg DAILY PO ; Start 06/22/21 at 12:00 Calcium Acetate (Phoslo) 667 mg TIDWMEALS PO ; Start 06/22/21 at 12:00 Hydralazine HCl (Apresoline) 100 mg BID PO ; Start 06/22/21 at 12:00 Carvedilol (Coreg) 25 mg BIDWMEALS PO ; Start 06/22/21 at 12:00 Insulin Glargine (Lantus Syringe) 10 unit QHS SQ ; Start 06/22/21 at 21:00 Insulin Human Lispro (HumaLOG) 0-5 UNITS TIDWMEALS SQ ; Start 06/22/21 at 12:00 Dextrose (Dextrose 50%-Water Syringe) 12.5 gm PRN Q15MIN PRN IV SEE COMMENTS; Start 06/22/21 at 11:15 Acetaminophen (Tylenol) 650 mg PRN Q6HRS PRN PO Headaches, Temp > 101.5'; Start 06/22/21 at 11:30 Lorazepam (Ativan Inj) 0.5 mg PRN Q6HRS PRN IVP ANXIETY / AGITATION; Start 06/22/21 at 11:30 Lorazepam (Ativan) 1 mg PRN Q6HRS PRN PO ANXIETY / AGITATION; Start 06/22/21 at 11:30 Ondansetron HCl (Zofran) 4 mg PRN Q6HRS PRN IVP NAUSEA/VOMITING; Start 06/22/21 at 11:30 Zolpidem Tartrate (Ambien) 5 mg PRN QHS PRN PO INSOMNIA, MAY REPEAT IN 1HR; Start 06/22/21 at 11:30 Heparin Sodium (Porcine) (Heparin Sodium) 5,000 unit Q8HRS SQ ; Start 06/22/21 at 14:00 Sodium Chloride (Normal Saline Flush) 3 ml QSHIFT PRN IV AFTER MEDS AND BLOOD DRAWS; Start 06/22/21 at 11:30 Acetaminophen/ Hydrocodone Bitart (Lortab 5/325) 1 tab PRN Q4HRS PRN PO MILD PAIN 1-3; Start 06/22/21 at 11:30 Fentanyl Citrate (Fentanyl 2ml Vial) 25 mcg PRN Q1HR PRN IV BREAKTHROUGH PAIN; Start 06/22/21 at 11:30 Magnesium Hydroxide (Milk Of Magnesia) 2,400 mg PRN Q12HR PRN PO CONSTIPATION; Start 06/22/21 at 11:30 Albumin Human 200 ml @ 200 mls/hr 1X PRN PRN IV Hypotension; Start 06/22/21 at 13:30; Stop 06/22/21 at 19:29 Diphenhydramine HCl (Benadryl) 25 mg 1X PRN PRN IV ITCHING; Start 06/22/21 at 13:30; Stop 06/23/21 at 13:29 Diphenhydramine HCl (Benadryl) 25 mg 1X PRN PRN IV ITCHING; Start 06/22/21 at 13:30; Stop 06/23/21 at 13:29 Info (PHARMACY MONITORING -- do not chart) 1 each PRN DAILY PRN MC SEE COMMENTS; Start 06/22/21 at 13:30 Active Scripts Active Hydralazine Hcl 50 Mg Tablet 100 Mg PO BID 30 Days Norvasc (Amlodipine Besylate) 10 Mg Tablet 10 Mg PO DAILY Phoslo (Calcium Acetate) 667 Mg Capsule 667 Mg PO TIDWMEALS Reported Spironolactone 25 Mg Tablet 1 Tab PO DAILY Carvedilol (Carvedilol) 12.5 Mg Tablet 12.5 Mg PO BIDWMEALS Acetaminophen 500 Mg Tablet 1 Tab PO PRN Q6HRS PRN 15 Days Zinc (Zinc Gluconate) 30 Mg Tablet 30 Mg PO DAILY Renal Vitamin Tablet (Folic Acid/Vit Bcomp,C) 0.8 Mg Tablet 0.8 Mg PO Allergies Allergies: Coded Allergies: No Known Drug Allergies (Unverified , 03/20/16) ROS General: YES: Fatigue PSYCHOLOGICAL ROS: YES: Anxiety, Depression Eyes: Yes Decreased vision HEENT: YES: Heacaches ALLERGY AND IMMUNOLOGY: YES: Seasonal Allergies Respiratory: YES: Cough, Orthopnea, Shortness of breath, SOB with excertion Cardiovascular: yes Orthopnea, yes Edema Gastrointestinal: Yes Constipation Genitourinary: YES Other (ANURIA) Musculoskeletal: Yes Joint Stiffness, Yes Muscular Weakness Neurological: Yes Weakness Skin: Yes Dry Skin Physical Exam General: Alert, Oriented X3, Cooperative, mild distress HEENT: Atraumatic, PERRLA, Mucous membr. moist/pink Lungs: Other (BASILAR RALES, TACHYPNIC) Heart: Regular rate, Normal S1, Gallops, Other (MR) Abdomen: Normal bowel sounds, Soft, No tenderness, No hepatosplenomegaly Extremities: Other (LEFT ARM AVF WITH A GOOD THRILL AND BRUIT. COLLAPSES WELL WITH GOOD AUGMENTATION) Skin: No rashes, No breakdown Neuro: Normal speech, Other (UNABLE TO PERFORM DUE TO DISTRESS) Psych/Mental Status: Other (ANXIOUS AFFECRT) MUSCULOSKELETAL: No joint tenderness, No deformity, Other (4+ BILATERAL LE EDEMA) Vitals VITALS Vital Signs Date Time Temp Pulse Resp B/P (MAP) Pulse Ox O2 Delivery O2 Flow Rate FiO2 06/22/21 14:00 101 25 149/85 (106) 94 Nasal Cannula 5.0 06/22/21 11:45 97.5 97.5 Labs Labs Laboratory Tests Test 06/22/21 08:25 06/22/21 08:39 06/22/21 09:30 06/22/21 12:43 White Blood Count 5.8 x10^3/uL (4.0-11.0) Red Blood Count 3.79 x10^6/uL (3.50-5.40) Hemoglobin 12.8 g/dL (12.0-15.5) Hematocrit 39.0 % (36.0-47.0) Mean Corpuscular Volume 103 fL (79-100) Mean Corpuscular Hemoglobin 34 pg (25-35) Mean Corpuscular Hemoglobin Concent 33 g/dL (31-37) Red Cell Distribution Width 14.2 % (11.5-14.5) Platelet Count 124 x10^3/uL (140-400) Neutrophils (%) (Auto) 54 % (31-73) Lymphocytes (%) (Auto) 32 % (24-48) Monocytes (%) (Auto) 11 % (0-9) Eosinophils (%) (Auto) 3 % (0-3) Basophils (%) (Auto) 1 % (0-3) Neutrophils # (Auto) 3.1 x10^3/uL (1.8-7.7) Lymphocytes # (Auto) 1.8 x10^3/uL (1.0-4.8) Monocytes # (Auto) 0.6 x10^3/uL (0.0-1.1) Eosinophils # (Auto) 0.2 x10^3/uL (0.0-0.7) Basophils # (Auto) 0.0 x10^3/uL (0.0-0.2) Prothrombin Time 12.7 SEC (11.7-14.0) Prothromb Time International Ratio 1.0 (0.8-1.1) Activated Partial Thromboplast Time 27 SEC (24-38) Sodium Level 139 mmol/L (136-145) Potassium Level 6.5 mmol/L (3.5-5.1) Chloride Level 102 mmol/L (98-107) Carbon Dioxide Level 26 mmol/L (21-32) Anion Gap 11 (6-14) Blood Urea Nitrogen 50 mg/dL (7-20) Creatinine 8.2 mg/dL (0.6-1.0) Estimated GFR (Cockcroft-Gault) 5.8 BUN/Creatinine Ratio 6 (6-20) Glucose Level 197 mg/dL (70-99) Calcium Level 8.2 mg/dL (8.5-10.1) Magnesium Level 2.3 mg/dL (1.8-2.4) Total Bilirubin 0.3 mg/dL (0.2-1.0) Aspartate Amino Transf (AST/SGOT) 45 U/L (15-37) Alanine Aminotransferase (ALT/SGPT) 29 U/L (14-59) Alkaline Phosphatase 123 U/L (46-116) Creatine Kinase 116 U/L (26-192) Creatine Kinase MB (Mass) 0.9 ng/mL (0.0-3.6) Creatine Kinase MB Relative Index 0.8 % (0-4) Troponin I Quantitative 0.021 ng/mL (0.000-0.055) HF-Uci-D-Type Natriuretic Peptide > 53103 pg/mL (0-124) Total Protein 8.2 g/dL (6.4-8.2) Albumin 3.1 g/dL (3.4-5.0) Albumin/Globulin Ratio 0.6 (1.0-1.7) Hepatitis B Surface Antibody Reactive O2 Saturation 95 % (92-99) Arterial Blood pH 7.28 (7.35-7.45) Arterial Blood pCO2 at Patient Temp 49 mmHg (35-46) Arterial Blood pO2 at Patient Temp 93 mmHg (65-108) Arterial Blood HCO3 22 mmol/L (21-28) Arterial Blood Base Excess -5 mmol/L (-3-3) Oxyhemoglobin 94.7 % Methemoglobin 0.3 % (0.0-1.9) Carbon Monoxide, Quantitative 0.3 % (0.0-1.9) FiO2 70 SARS-CoV-2 Antigen (Rapid) Negative (NEGATIVE) Glucose (Fingerstick) 103 mg/dL (70-99) Laboratory Tests Test 06/22/21 08:25 06/22/21 08:39 06/22/21 09:30 06/22/21 12:43 White Blood Count 5.8 x10^3/uL (4.0-11.0) Red Blood Count 3.79 x10^6/uL (3.50-5.40) Hemoglobin 12.8 g/dL (12.0-15.5) Hematocrit 39.0 % (36.0-47.0) Mean Corpuscular Volume 103 fL (79-100) Mean Corpuscular Hemoglobin 34 pg (25-35) Mean Corpuscular Hemoglobin Concent 33 g/dL (31-37) Red Cell Distribution Width 14.2 % (11.5-14.5) Platelet Count 124 x10^3/uL (140-400) Neutrophils (%) (Auto) 54 % (31-73) Lymphocytes (%) (Auto) 32 % (24-48) Monocytes (%) (Auto) 11 % (0-9) Eosinophils (%) (Auto) 3 % (0-3) Basophils (%) (Auto) 1 % (0-3) Neutrophils # (Auto) 3.1 x10^3/uL (1.8-7.7) Lymphocytes # (Auto) 1.8 x10^3/uL (1.0-4.8) Monocytes # (Auto) 0.6 x10^3/uL (0.0-1.1) Eosinophils # (Auto) 0.2 x10^3/uL (0.0-0.7) Basophils # (Auto) 0.0 x10^3/uL (0.0-0.2) Prothrombin Time 12.7 SEC (11.7-14.0) Prothromb Time International Ratio 1.0 (0.8-1.1) Activated Partial Thromboplast Time 27 SEC (24-38) Sodium Level 139 mmol/L (136-145) Potassium Level 6.5 mmol/L (3.5-5.1) Chloride Level 102 mmol/L (98-107) Carbon Dioxide Level 26 mmol/L (21-32) Anion Gap 11 (6-14) Blood Urea Nitrogen 50 mg/dL (7-20) Creatinine 8.2 mg/dL (0.6-1.0) Estimated GFR (Cockcroft-Gault) 5.8 BUN/Creatinine Ratio 6 (6-20) Glucose Level 197 mg/dL (70-99) Calcium Level 8.2 mg/dL (8.5-10.1) Magnesium Level 2.3 mg/dL (1.8-2.4) Total Bilirubin 0.3 mg/dL (0.2-1.0) Aspartate Amino Transf (AST/SGOT) 45 U/L (15-37) Alanine Aminotransferase (ALT/SGPT) 29 U/L (14-59) Alkaline Phosphatase 123 U/L (46-116) Creatine Kinase 116 U/L (26-192) Creatine Kinase MB (Mass) 0.9 ng/mL (0.0-3.6) Creatine Kinase MB Relative Index 0.8 % (0-4) Troponin I Quantitative 0.021 ng/mL (0.000-0.055) US-Fae-L-Type Natriuretic Peptide > 49755 pg/mL (0-124) Total Protein 8.2 g/dL (6.4-8.2) Albumin 3.1 g/dL (3.4-5.0) Albumin/Globulin Ratio 0.6 (1.0-1.7) Hepatitis B Surface Antibody Reactive O2 Saturation 95 % (92-99) Arterial Blood pH 7.28 (7.35-7.45) Arterial Blood pCO2 at Patient Temp 49 mmHg (35-46) Arterial Blood pO2 at Patient Temp 93 mmHg (65-108) Arterial Blood HCO3 22 mmol/L (21-28) Arterial Blood Base Excess -5 mmol/L (-3-3) Oxyhemoglobin 94.7 % Methemoglobin 0.3 % (0.0-1.9) Carbon Monoxide, Quantitative 0.3 % (0.0-1.9) FiO2 70 SARS-CoV-2 Antigen (Rapid) Negative (NEGATIVE) Glucose (Fingerstick) 103 mg/dL (70-99) Images Images Single AP view of the chest. Comparison: 03/19/2021. Indication: Dyspnea Findings: The heart is enlarged but stable. There is no pneumothorax or effusion. Marked worsening of the previously visualized bilateral interstitial opacities particularly in the left lung apex and right lung base. Impression: 1. Diffuse bilateral interstitial opacities identified. May be severe pulmonary edema versus atypical infection. Electronically signed by: Tr Orozco MD (06/22/2021 9:04 AM) [id number] Assessment/Plan Assessment/Plan IMP HYPERKALEMIA ESRD-MWF L ARM BB AVF-GOOD THRILL/BRUIT-COLLAPSES WELL WITH GOOD AUGMENTATION VOLUME OVERLOAD GENERALIZED EDEMA ACUTE ON CHRONIC DIASTOLIC CHF ACUTE RESP FAILURE MET AND RESP ACIDOSIS WITH ACIDEMIA HYPERTENSIVE EMERGENCY-PARTLY VOLUME DEPENDENT SUSPECT NON COMPLIANCE WITH DIET AND MEDS ANEMIA OF ESRD-WELL TREATED SECONDARY HYPERPARATHYROIDISM DIABETES MELLITUS TYPE II PLAN EMERGENT HD TODAY UF TOWARDS TARGET WEIGHT DRY WEIGHT YET TO BE SET WILL PLAN FOR EXTRA TREATMENT AGAIN TOMORROW RESUME HOME BP MEDS EXPECT HTN IS PARTLY VOLUME DEPENDENT AND WILL IMPROVE WITH UF HOLD HER MAURA RESUME PHOSLO BINDER SUPPLEMENTAL OXYGEN/BIPAP CONSIDER PULMONARY EVALUATION CONSIDER ECHOCARDIOGRAM ENCOURAGE FLUID RESTRICTION ENC MED COMPLIANCE WILL FOLLOW JITENDRA HESS MD Jun 22, 2021 15:26
[2021-06-22] MEDS ORDERED: NITROGLYCERIN PREMIX 250 ML IV PRN (15:45)
--- NOTE | 2021-06-22 16:32 | NUR ---
Medications scheduled for 1200 were not given due to pt going to get dialysis.
[2021-06-22] MEDS: HEPARIN for SUB-Q USE 5,000 UNIT/ML VIAL. SQ SCH ×2 (16:53→21:27)
--- NOTE | 2021-06-22 17:26 | EKG ---
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
--- NOTE | 2021-06-22 20:07 | RAD ---
Bilateral Lower Extremity Venous Doppler: Reason for examination: Bilateral lower extremity swelling, hypoxic The lower extremity venous systems bilaterally were evaluated from the common femoral and greater sap henous veins distally to the calf veins with grayscale imaging, color-flow imaging and spectral hanna sis. There is normal blood flow without deep venous thrombosis. There is normal response of the venous sys tems to compression and augmentation. Impression: No deep venous thrombosis in the lower extremity venous systems bilaterally. Electronically signed by: Collin Guerra MD (06/22/2021 8:04 PM) [facility]
[2021-06-22] MEDS: INSULIN GLARGINE SYRINGE. SQ SCH (20:53)
[2021-06-23] VITALS (16 sets, daily range): BP systolic 118–154; BP diastolic 56–75
[2021-06-23 05:10] LABS: HEMATOCRIT 30.8 % (36.0-47.0); HEMOGLOBIN 10.2 g/dL (12.0-15.5); RED BLOOD COUNT 3.06 x10^6/uL (3.50-5.40); RED CELL DISTRIBUTION WIDTH 13.9 % (11.5-14.5)
[2021-06-23 05:23] LABS: CALCIUM 8.7 mg/dL (8.5-10.1); CREATININE 5.8 mg/dL (0.6-1.0); GFR 8.7; POTASSIUM 5.5 mmol/L (3.5-5.1)
[2021-06-23] MEDS: HEPARIN for SUB-Q USE 5,000 UNIT/ML VIAL. SQ SCH ×3 (05:42→22:00)
[2021-06-23] MEDS: INSULIN LISPRO 300 UNITS/3 ML VIAL. SQ SCH ×3 (08:00→17:00)
[2021-06-23] MEDS ORDERED: DIALYSIS PATIENT. MC PRN (08:00)
[2021-06-23] MEDS ORDERED: IV NORMAL SALINE 1000ML BAG 1,000 ML IV PRN ×2 (08:00)
[2021-06-23] MEDS: CALCIUM ACETATE 667 MG CAPSULE PO SCH ×3 (11:25→17:30)
[2021-06-23] MEDS: CARVEDILOL 12.5 MG TABLET. PO SCH ×2 (11:26→17:30)
--- NOTE | 2021-06-23 13:19 | PDOC ---
[employer] PROGRESS NOTE Date of Service DOS: DATE: 06/23/21 TIME: 13:18 Chief Complaint Chief Complaint Acute respiratory failure with hypoxia acute diastolic CHF, fluid overload, better after 4 liters removed with HSD Hypertensive emergency on admit Blood pulmonary edema ESRD on HD Hyperkalemia DM2 History of Present Illness History of Present Illness admitted to ICU on nitroglycerin gtt and BiPAP. - now much better, nitro paste, telly downgrade to [facility] nephrology for emergent hemodialysis Basal insulin with LDSS (goal blood sugar [id number]) Hemoglobin A1c pending. Last HbA1c 7.4 in 2016. Resume home medications FEN - Renal diet PPX - Heparin FULL CODE Dispo - inpatient for above Critical care time 30 minutes spent reviewing charts, reviewing labs, reviewing imaging, and discussion with Dr. Engel Surrogate decision-maker is her daughter (Marilee Purvis) Vitals/I&O Vitals/I&O: Vital Signs Date Time Temp Pulse Resp B/P (MAP) Pulse Ox O2 Delivery O2 Flow Rate FiO2 06/23/21 11:27 97 140/68 06/23/21 06:00 14 97 Nasal Cannula 1.0 06/23/21 04:00 99.0 99.0 I & O 06/22/21 06/22/21 06/23/21 15:00 23:00 07:00 Intake Total 472 ml Output Total 0 ml 0 ml 5 ml Balance 0 ml 0 ml 467 ml Physical Exam General: Alert, Oriented X3, Cooperative, mild distress Heart: Regular rate, Normal S1, Gallops, Other (MR) Lungs: Clear Abdomen: Normal bowel sounds, Soft, No tenderness, No hepatosplenomegaly Extremities: Other (LEFT ARM AVF WITH A GOOD THRILL AND BRUIT. COLLAPSES WELL WITH GOOD AUGMENTATION) Skin: No rashes, No breakdown Labs Labs: Laboratory Tests Test 06/22/21 18:16 06/22/21 20:49 06/23/21 04:48 06/23/21 11:33 Glucose (Fingerstick) 100 mg/dL (70-99) 108 mg/dL (70-99) 66 mg/dL (70-99) White Blood Count 11.0 x10^3/uL (4.0-11.0) Red Blood Count 3.06 x10^6/uL (3.50-5.40) Hemoglobin 10.2 g/dL (12.0-15.5) Hematocrit 30.8 % (36.0-47.0) Mean Corpuscular Volume 101 fL (79-100) Mean Corpuscular Hemoglobin 33 pg (25-35) Mean Corpuscular Hemoglobin Concent 33 g/dL (31-37) Red Cell Distribution Width 13.9 % (11.5-14.5) Platelet Count 91 x10^3/uL (140-400) Sodium Level 136 mmol/L (136-145) Potassium Level 5.5 mmol/L (3.5-5.1) Chloride Level 99 mmol/L (98-107) Carbon Dioxide Level 31 mmol/L (21-32) Anion Gap 6 (6-14) Blood Urea Nitrogen 26 mg/dL (7-20) Creatinine 5.8 mg/dL (0.6-1.0) Estimated GFR (Cockcroft-Gault) 8.7 Glucose Level 77 mg/dL (70-99) Calcium Level 8.7 mg/dL (8.5-10.1) Test 06/23/21 12:12 Glucose (Fingerstick) 177 mg/dL (70-99) Assessment and Plan Assessmemt and Plan Problems Medical Problems: (1) End stage renal disease on dialysis Status: Acute (2) Flash pulmonary edema Status: Acute (3) Hyperkalemia Status: Acute (4) Hypertensive emergency Status: Acute (5) Hypoxia Status: Acute (6) Respiratory failure Status: Acute Comment Review of Relevant I have reviewed the following items waqas (where applicable) has been applied. Medications: Current Medications Medications (Trade) Dose Ordered Sig/Erwin Route PRN Reason Start Time Stop Time Status Last Admin Dose Admin Insulin Glargine (Lantus Syringe) 10 unit QHS SQ 06/22/21 21:00 06/22/21 20:53 Heparin Sodium (Porcine) (Heparin Sodium) 5,000 unit Q8HRS SQ 06/22/21 14:00 06/23/21 05:42 Nitroglycerin/ Dextrose 250 ml @ 1.5 mls/hr CONT PRN IV SEE I/O RECORD 06/22/21 15:45 06/22/21 16:54 Justifications for Admission General Conditions Other justification for admit: Hypertensive emergency, flash pulmonary edema, HTN ESRD Other Justification HAY GUZMAN MD Jun 23, 2021 13:19
--- NOTE | 2021-06-23 13:40 | PDOC ---
DATE OF SERVICE DATE: 06/23/21 TIME: 13:28 SUBJECTIVE ROS Had dialysis earlier today Tolerated well OBJECTIVE Vital Signs Vital Signs Date Time Temp Pulse Resp B/P (MAP) Pulse Ox O2 Delivery O2 Flow Rate FiO2 06/23/21 11:27 97 140/68 06/23/21 06:00 14 97 Nasal Cannula 1.0 06/23/21 04:00 99.0 99.0 I & 0 Intake and Output 06/23/21 07:00 Intake Total 472 ml Output Total 5 ml Balance 467 ml Intake IV Total 472 ml Output Urine Total 5 ml # Bowel Movements 1 PHYSICAL EXAM Physical Exam General: NAD HEENT: Atraumatic, Lungs: Bibasilar rales, non labored Cardiovascular: S1, S2 Abdomen: Normal bowel sounds, Soft, No tenderness Extremities: 2-3+ bilateral leg edema Skin: No rash Neuro: Normal speech, Sensation intact DIAGNOSIS/ASSESSMENT Assessment & Plan ESRD - on HD MWF , missed yesterday . Dialyzed earlier today, tolerated well. Discussed treatment plan with Diana Access Lt Arm BB AVF Hyperkalemia - Dialyzed today Acute on Chronic Diastolic CHF -Volume overload POA- Dialysis with UF 4 lts today Acute Resp Failure on O2 by PR HTNsive Emergency POA Anemia Hgb stable Secondary Hyperparathyroidism Diabetes COMMENT/RELEVANT DATA Meds Current Medications Medications (Trade) Dose Ordered Sig/Erwin Start Time Stop Time Status Last Admin Dose Admin Acetaminophen (Tylenol) 650 mg PRN Q6HRS PRN 06/22/21 11:30 Acetaminophen/ Hydrocodone Bitart (Lortab 5/325) 1 tab PRN Q4HRS PRN 06/22/21 11:30 Albumin Human 200 ml @ 200 mls/hr 1X PRN PRN 06/22/21 13:30 06/22/21 19:29 DC Amlodipine Besylate (Norvasc) 10 mg DAILY 06/22/21 12:00 06/23/21 11:27 10 MG Aspirin (Ecotrin) 325 mg 1X ONCE 06/22/21 07:45 06/22/21 07:46 DC 06/22/21 07:53 325 MG Bumetanide (Bumex) 1 mg 1X ONCE 06/22/21 09:15 06/22/21 09:18 DC 06/22/21 09:39 1 MG Calcium Acetate (Phoslo) 667 mg TIDWMEALS 06/22/21 12:00 06/23/21 11:25 667 MG Calcium Gluconate (Calcium Gluconate) 1,000 mg 1X ONCE 06/22/21 09:15 06/22/21 09:18 DC 06/22/21 09:44 1,000 MG Carvedilol (Coreg) 25 mg BIDWMEALS 06/22/21 12:00 06/23/21 11:26 25 MG Dextrose (Dextrose 50%-Water Syringe) 12.5 gm PRN Q15MIN PRN 06/22/21 11:15 06/23/21 11:42 12.5 GM Diphenhydramine HCl (Benadryl) 25 mg 1X PRN PRN 06/22/21 13:30 06/23/21 13:29 Fentanyl Citrate (Fentanyl 2ml Vial) 25 mcg PRN Q1HR PRN 06/22/21 11:30 Heparin Sodium (Porcine) (Heparin Sodium) 5,000 unit Q8HRS 06/22/21 14:00 06/23/21 05:42 5,000 UNIT Hydralazine HCl (Apresoline) 100 mg BID 06/22/21 12:00 06/23/21 11:26 100 MG Info (PHARMACY MONITORING -- do not chart) 1 each PRN DAILY PRN 06/23/21 08:00 Insulin Glargine (Lantus Syringe) 10 unit QHS 06/22/21 21:00 06/22/21 20:53 10 UNIT Insulin Human Lispro (HumaLOG) 0-5 UNITS TIDWMEALS 06/22/21 12:00 Insulin Human Regular (HumuLIN R VIAL) 10 unit 1X ONCE 06/22/21 09:15 06/22/21 09:18 DC 06/22/21 09:43 10 UNIT Lorazepam (Ativan Inj) 0.5 mg PRN Q6HRS PRN 06/22/21 11:30 Lorazepam (Ativan) 1 mg PRN Q6HRS PRN 06/22/21 11:30 Magnesium Hydroxide (Milk Of Magnesia) 2,400 mg PRN Q12HR PRN 06/22/21 11:30 Nitroglycerin (Nitro-Bid Oint) 1 inch 1X ONCE 06/22/21 08:00 06/22/21 08:01 DC 06/22/21 07:53 1 INCH Nitroglycerin/ Dextrose 250 ml @ 1.5 mls/hr CONT PRN 06/22/21 15:45 06/22/21 16:54 30 MLS/HR Ondansetron HCl (Zofran) 4 mg PRN Q6HRS PRN 06/22/21 11:30 Sodium Chloride 1,000 ml @ 400 mls/hr Q2H30M PRN 06/23/21 08:00 06/23/21 19:59 Sodium Chloride (Normal Saline Flush) 3 ml QSHIFT PRN 06/22/21 11:30 Zolpidem Tartrate (Ambien) 5 mg PRN QHS PRN 06/22/21 11:30 Lab Laboratory Tests Test 06/22/21 18:16 06/22/21 20:49 06/23/21 04:48 06/23/21 11:33 Glucose (Fingerstick) 100 mg/dL (70-99) 108 mg/dL (70-99) 66 mg/dL (70-99) White Blood Count 11.0 x10^3/uL (4.0-11.0) Red Blood Count 3.06 x10^6/uL (3.50-5.40) Hemoglobin 10.2 g/dL (12.0-15.5) Hematocrit 30.8 % (36.0-47.0) Mean Corpuscular Volume 101 fL (79-100) Mean Corpuscular Hemoglobin 33 pg (25-35) Mean Corpuscular Hemoglobin Concent 33 g/dL (31-37) Red Cell Distribution Width 13.9 % (11.5-14.5) Platelet Count 91 x10^3/uL (140-400) Sodium Level 136 mmol/L (136-145) Potassium Level 5.5 mmol/L (3.5-5.1) Chloride Level 99 mmol/L (98-107) Carbon Dioxide Level 31 mmol/L (21-32) Anion Gap 6 (6-14) Blood Urea Nitrogen 26 mg/dL (7-20) Creatinine 5.8 mg/dL (0.6-1.0) Estimated GFR (Cockcroft-Gault) 8.7 Glucose Level 77 mg/dL (70-99) Calcium Level 8.7 mg/dL (8.5-10.1) Test 06/23/21 12:12 Glucose (Fingerstick) 177 mg/dL (70-99) Results All relevant outside records, renal labs, imaging studies, telemetry/EKG's were reviewed. Justicifation of Admission Dx: Justifications for Admission: Justification of Admission Dx: Yes CHF: Hemodynamic Instability Sepsis: Hypoxemia CORTNEY CANTU MD Jun 23, 2021 13:40
--- NOTE | 2021-06-23 14:20 | PDOC2 ---
Pulmonary Consult. Date of Service: DATE: 06/23/21 TIME: 14:16 Reason for Consult/Chief Com: This is interim pulmonary consult. Full consult pending. Patient with ESRD on dialysis and history of CHF admitted with respiratory failure requiring bipap, pulmonary edema and markedly high blood pressure. She responded well to emergent dialysis and bp control. At time of visit she is resting comfortably on 1L O2. Will folllow along with you. ROS: ROS: A 12 point ROS was obtained and positive for []. Otherwise the 12 point ROS was negative. PE: Vital Signs Date Time Temp Pulse Resp B/P (MAP) Pulse Ox O2 Delivery O2 Flow Rate FiO2 06/23/21 11:27 97 140/68 06/23/21 06:00 14 97 Nasal Cannula 1.0 06/23/21 04:00 99.0 99.0 PE: The HEENT exam was unremarkable. The neck did not have any JVD or lymphadenopathy. There was no supraclavicular lymphadenopathy. The chest exam revealed equal bilateral breath sounds without rales, rhonchi or wheezes. The cardiovascular exam revealed a regular rate and rhythm without murmur or gallop. The abdomen was soft without masses or organomegaly. The extremities did not have any cyanosis, clubbing or edema. The patient was alert, oriented and appropriate. Cranial nerves, motor and coordination were grossly intact. There were no hot, swollen or deformed joints. There was no rash. Lab Results: Lab Results: Laboratory Tests Test 06/22/21 18:16 06/22/21 20:49 06/23/21 11:33 06/23/21 12:12 Glucose (Fingerstick) 100 mg/dL (70-99) 108 mg/dL (70-99) 66 mg/dL (70-99) 177 mg/dL (70-99) Test 06/23/21 14:00 Glucose (Fingerstick) 92 mg/dL (70-99) MARTIN TY MD Jun 23, 2021 14:20
--- NOTE | 2021-06-23 17:21 | CONS ---
DATE OF CONSULTATION: 06/22/2021 PULMONARY CONSULTATION HISTORY OF PRESENT ILLNESS: The patient is 70-year-old female who is admitted in respiratory distress. She does not and never did smoke tobacco. She has not previously had any significant pulmonary diseases. She has had end-stage renal failure and has been on dialysis since approximately 2017. She has had multiple episodes of flash pulmonary edema requiring admission. She usually is dialyzed on Friday, Friday and Friday. She states she has not missed any recent dialyses. She woke up yesterday morning and was more short of breath. She came to the Emergency Room and was found to be hypoxic. She had bilateral infiltrates. She had severe hypertension. She received emergency dialysis. She has received emergent therapy to lower her blood pressure. Since then she has noticed a marked improvement in her shortness of breath. She initially was on BiPAP therapy to maintain her oxygen saturation. At present, she is on 1 liter and resting comfortably. PAST MEDICAL HISTORY: Significant for cardiac heart failure, hypertension, and end-stage renal disease. FAMILY HISTORY: Negative for pulmonary disease. SOCIAL HISTORY: As noted above, she does not and never did smoke tobacco. 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 REVIEW OF SYSTEMS: A 12-point review of systems was obtained and otherwise negative other than what is noted above in her HPI. PHYSICAL EXAMINATION: GENERAL: Reveals a female in no acute distress. She is afebrile. VITAL SIGNS: Her heart rate is 90 per minute and regular. Her blood pressure is 118/65. Her heart rate is 90 per minute and regular. Her respiratory rate is 18 per minute and nonlabored. Her oxygen saturation on 1 liter is 95%. HEENT: Unremarkable. NECK: There is no JVD or lymphadenopathy at the time of my examination. CHEST: She does have trace bibasilar rales. Her breath sounds are good and equal. She does not have any wheezing or rhonchi. CARDIOVASCULAR: She is in a regular rate and rhythm with a slight early diastolic murmur best heard in the aortic area. ABDOMEN: Soft, without masses or organomegaly. EXTREMITIES: She does have trace bilateral pretibial edema. NEUROLOGIC: She is alert, oriented, and appropriate. Cranial nerves, motor, and coordination are all grossly intact. LABORATORY DATA: On admission, her white blood cell count is 5800. Her hemoglobin is 12.8. Her creatinine was 5.8. Her BNP was greater than 35,000. Of note on admission, her creatinine on admission was 8.2. She had a chest x-ray on admission that was significant for bilateral infiltrates consistent with pulmonary edema. IMPRESSION: 1. Acute hypoxic respiratory failure. 2. Pulmonary edema. 3. End-stage renal disease. 4. Hypertension. PLAN: 1. We will continue oxygen as needed, nutritional support and DVT prophylaxis. 2. I expect that she will do well from a pulmonary perspective with better control of her blood pressure and renal failure. 3. We will follow along with you. Thank you for referring this very nice patient. ASHTYN/TREMAYNE DR: Marybel TID: [id number]
--- NOTE | 2021-06-23 19:10 | NUR ---
Pt transferred to rm 574 per wheelchair with belongings. O2 per NC at 1LPM. Diet taken well. No c/o SOA, chest pain or headache. Report was given to Jere Ortega RN prior to transfer
[2021-06-23] MEDS: INSULIN GLARGINE SYRINGE. SQ SCH (21:00)
--- NOTE | 2021-06-23 22:43 | NUR ---
FSBS 113 PT REFUSED Lantus, plt Low 91 pt refused heparin, will continue to monitor
[2021-06-24 03:00] VITALS: BP 141/69
[2021-06-24 05:14] LABS: CALCIUM 8.2 mg/dL (8.5-10.1); CREATININE 5.6 mg/dL (0.6-1.0); GFR 9.1; POTASSIUM 4.7 mmol/L (3.5-5.1)
[2021-06-24 05:56] LABS: HEMOGLOBIN A1C 5.4 % (4.8-5.6)
[2021-06-24] MEDS: HEPARIN for SUB-Q USE 5,000 UNIT/ML VIAL. SQ SCH ×2 (06:00→13:38)
[2021-06-24 07:00] VITALS: BP 150/66
[2021-06-24] MEDS: INSULIN LISPRO 300 UNITS/3 ML VIAL. SQ SCH ×2 (08:00→12:00)
[2021-06-24] MEDS: CALCIUM ACETATE 667 MG CAPSULE PO SCH ×2 (08:00→11:58)
[2021-06-24] MEDS: CARVEDILOL 12.5 MG TABLET. PO SCH (08:59)
--- NOTE | 2021-06-24 09:43 | PDOC ---
[facility] PROGRESS NOTE Date of Service DOS: DATE: 06/24/21 TIME: 09:40 Chief Complaint Chief Complaint Acute respiratory failure with hypoxia acute diastolic CHF, fluid overload, better after 4 liters removed with HSD Hypertensive emergency on admit Blood pulmonary edema ESRD on HD Hyperkalemia DM2 History of Present Illness History of Present Illness Ms. Tucker is a 30-year-old female with past medical history ESRD on HD (Friday/Friday/Friday), CHF, HTN, who presents to the ED with complaints of shortness of breath this morning. Her last hemodialysis session was on Friday, but has not had dialysis today. Upon arrival in the ED blood pressure 219/119 mmHg. Labs showing WBC 5.8, platelets 124, potassium 6.5, BUN 50, creatinine 8.2, CBG 137, albumin 3.1, troponin 0.021, BNP >35,000. Chest x- ray showed diffuse bilateral interstitial opacities, likely representing severe pulmonary edema. She was placed on BiPAP and nitroglycerin drip with some improvement. States she has been fully vaccinated against COVID-19. Will admit patient to ICU for further medical management. 06/24: Transferred out of ICU yesterday. Currently breathing on 1.5 L nasal cannula, denying any shortness of breath. Had hemodialysis yesterday; regular hemodialysis schedule is Friday/Friday/Friday. Blood pressure much improved. She feels comfortable discharging home. Will confirm with nephrology no plans for HD today. Will provide prescription for home oxygen, and steroid cream for history of psoriasis. Will arrange discharge accordingly. Greater than 30 minutes spent managing the discharge of this patient. Vitals/I&O Vitals/I&O: Vital Signs Date Time Temp Pulse Resp B/P (MAP) Pulse Ox O2 Delivery O2 Flow Rate FiO2 06/24/21 09:00 84 150/66 06/24/21 07:00 98.8 18 94 Nasal Cannula 3.0 98.8 I & O 06/23/21 06/23/21 06/24/21 15:00 23:00 07:00 Intake Total 700 ml 300 ml Output Total 30 ml Balance 670 ml 300 ml Physical Exam General: Alert, Oriented X3, Cooperative, No acute distress Heart: Regular rate, Normal S1, Gallops, Other (MR) Lungs: Clear Abdomen: Normal bowel sounds, Soft, No tenderness, No hepatosplenomegaly Extremities: Other (LEFT ARM AVF WITH A GOOD THRILL AND BRUIT. COLLAPSES WELL WITH GOOD AUGMENTATION) Skin: No rashes, No breakdown Labs Labs: Laboratory Tests Test 06/23/21 11:33 06/23/21 12:12 06/23/21 14:00 06/23/21 17:51 Glucose (Fingerstick) 66 mg/dL (70-99) 177 mg/dL (70-99) 92 mg/dL (70-99) 101 mg/dL (70-99) Test 06/23/21 21:05 06/24/21 04:30 Glucose (Fingerstick) 113 mg/dL (70-99) Sodium Level 135 mmol/L (136-145) Potassium Level 4.7 mmol/L (3.5-5.1) Chloride Level 98 mmol/L (98-107) Carbon Dioxide Level 33 mmol/L (21-32) Anion Gap 4 (6-14) Blood Urea Nitrogen 31 mg/dL (7-20) Creatinine 5.6 mg/dL (0.6-1.0) Estimated GFR (Cockcroft-Gault) 9.1 Glucose Level 83 mg/dL (70-99) Calcium Level 8.2 mg/dL (8.5-10.1) Assessment and Plan Assessmemt and Plan Problems Medical Problems: (1) End stage renal disease on dialysis Status: Acute (2) Flash pulmonary edema Status: Acute (3) Hyperkalemia Status: Acute (4) Hypertensive emergency Status: Acute (5) Hypoxia Status: Acute (6) Respiratory failure Status: Acute Comment Review of Relevant I have reviewed the following items waqas (where applicable) has been applied. Justifications for Admission General Conditions Other justification for admit: Hypertensive emergency, flash pulmonary edema, HTN ESRD Other Justification RAIN CROCKETT MD Jun 24, 2021 09:43
--- NOTE | 2021-06-24 09:46 | PDOC3 ---
Discharge Summary Visit Information Date of Admission: Jun 22, 2021 Date of Discharge: Jun 24, 2021 Final Diagnosis Problems Medical Problems: (1) End stage renal disease on dialysis Status: Acute (2) Flash pulmonary edema Status: Acute (3) Hyperkalemia Status: Acute (4) Hypertensive emergency Status: Acute (5) Hypoxia Status: Acute (6) Respiratory failure Status: Acute Brief Hospital Course Allergies Allergies Coded Allergies Type Severity Reaction Last Updated Verified No Known Drug Allergies 03/20/16 No Vital Signs Vital Signs Date Time Temp Pulse Resp B/P (MAP) Pulse Ox O2 Delivery O2 Flow Rate FiO2 06/24/21 09:00 84 150/66 06/24/21 07:00 98.8 18 94 Nasal Cannula 3.0 98.8 Lab Results Laboratory Tests Test 06/22/21 12:43 06/22/21 18:16 06/22/21 20:49 06/23/21 04:48 Glucose (Fingerstick) 103 mg/dL (70-99) 100 mg/dL (70-99) 108 mg/dL (70-99) White Blood Count 11.0 x10^3/uL (4.0-11.0) Red Blood Count 3.06 x10^6/uL (3.50-5.40) Hemoglobin 10.2 g/dL (12.0-15.5) Hematocrit 30.8 % (36.0-47.0) Mean Corpuscular Volume 101 fL (79-100) Mean Corpuscular Hemoglobin 33 pg (25-35) Mean Corpuscular Hemoglobin Concent 33 g/dL (31-37) Red Cell Distribution Width 13.9 % (11.5-14.5) Platelet Count 91 x10^3/uL (140-400) Sodium Level 136 mmol/L (136-145) Potassium Level 5.5 mmol/L (3.5-5.1) Chloride Level 99 mmol/L (98-107) Carbon Dioxide Level 31 mmol/L (21-32) Anion Gap 6 (6-14) Blood Urea Nitrogen 26 mg/dL (7-20) Creatinine 5.8 mg/dL (0.6-1.0) Estimated GFR (Cockcroft-Gault) 8.7 Glucose Level 77 mg/dL (70-99) Hemoglobin A1c 5.4 % (4.8-5.6) Calcium Level 8.7 mg/dL (8.5-10.1) Test 06/23/21 11:33 06/23/21 12:12 06/23/21 14:00 06/23/21 17:51 Glucose (Fingerstick) 66 mg/dL (70-99) 177 mg/dL (70-99) 92 mg/dL (70-99) 101 mg/dL (70-99) Test 06/23/21 21:05 06/24/21 04:30 Glucose (Fingerstick) 113 mg/dL (70-99) Sodium Level 135 mmol/L (136-145) Potassium Level 4.7 mmol/L (3.5-5.1) Chloride Level 98 mmol/L (98-107) Carbon Dioxide Level 33 mmol/L (21-32) Anion Gap 4 (6-14) Blood Urea Nitrogen 31 mg/dL (7-20) Creatinine 5.6 mg/dL (0.6-1.0) Estimated GFR (Cockcroft-Gault) 9.1 Glucose Level 83 mg/dL (70-99) Calcium Level 8.2 mg/dL (8.5-10.1) Laboratory Tests Test 06/23/21 11:33 06/23/21 12:12 06/23/21 14:00 06/23/21 17:51 Glucose (Fingerstick) 66 mg/dL (70-99) 177 mg/dL (70-99) 92 mg/dL (70-99) 101 mg/dL (70-99) Test 06/23/21 21:05 06/24/21 04:30 Glucose (Fingerstick) 113 mg/dL (70-99) Sodium Level 135 mmol/L (136-145) Potassium Level 4.7 mmol/L (3.5-5.1) Chloride Level 98 mmol/L (98-107) Carbon Dioxide Level 33 mmol/L (21-32) Anion Gap 4 (6-14) Blood Urea Nitrogen 31 mg/dL (7-20) Creatinine 5.6 mg/dL (0.6-1.0) Estimated GFR (Cockcroft-Gault) 9.1 Glucose Level 83 mg/dL (70-99) Calcium Level 8.2 mg/dL (8.5-10.1) Brief Hospital Course Ms. Tucker is a 70 old female who presented with: Acute respiratory failure with hypoxia Hypertensive emergency Blood pulmonary edema ESRD on HD Hyperkalemia DM2 Ms. Tucker is a 30-year-old female with past medical history ESRD on HD (Friday/Friday/Friday), CHF, HTN, who presents to the ED with complaints of shortness of breath this morning. Her last hemodialysis session was on Friday, but has not had dialysis today. Upon arrival in the ED blood pressure 219/119 mmHg. Labs showing WBC 5.8, platelets 124, potassium 6.5, BUN 50, creatinine 8.2, CBG 137, albumin 3.1, troponin 0.021, BNP >35,000. Chest x- ray showed diffuse bilateral interstitial opacities, likely representing severe pulmonary edema. She was placed on BiPAP and nitroglycerin drip with some improvement. States she has been fully vaccinated against COVID-19. Will admit patient to ICU for further medical management. 06/23: Admitted to ICU on nitroglycerin gtt and BiPAP. - now much better, nitro paste, will downgrade to [employer]. Had emergency hemodialysis in ICU. 06/24: Transferred out of ICU yesterday. Currently breathing on 1.5 L nasal cannula, denying any shortness of breath. Had hemodialysis yesterday; regular hemodialysis schedule is Friday/Friday/Friday. Blood pressure much improved. She feels comfortable discharging home. Will confirm with nephrology no plans for HD today. Will provide prescription for home oxygen, and steroid cream for history of psoriasis. Will arrange discharge accordingly. Discharge Information Condition at Discharge: Improved Disposition/Orders: D/C to Home Scheduled Amlodipine Besylate (Norvasc) 10 Mg Tablet, 10 MG PO DAILY, #60 Prescribed by: MONIQUE LISA on 11/01/15 1219 Last Action: Reviewed on 06/22/21 1136 by MACY PARADA Calcium Acetate (Phoslo) 667 Mg Capsule, 667 MG PO TIDWMEALS for DIALYSIS PATIENT, #90 Prescribed by: MONIQUE LISA on 11/01/15 1218 Last Action: Reviewed on 06/22/21 1136 by MACY PARADA Carvedilol (Carvedilol ) 12.5 Mg Tablet, 12.5 MG PO BIDWMEALS for CARDIAC, (Reported) Entered as Reported by: MACY PARADA on 06/22/211135 Last Action: New Order on 06/22/211135 by MACY PARADA Hydralazine Hcl (Hydralazine Hcl) 50 Mg Tablet, 100 MG PO BID for blood pressure for 30 Days, #120 Prescribed by: HUY AVILES MD on 03/21/21 1059 Last Action: Reviewed on 06/22/211135 by MACY PARADA Spironolactone (Spironolactone) 25 Mg Tablet, 1 TAB PO DAILY for diuretic, #90 Ref 1 (Reported) Entered as Reported by: MACY PARADA on 06/22/211135 Last Action: New Order on 06/22/211135 by MACY PARADA Zinc Gluconate (Zinc) 30 Mg Tablet, 30 MG PO DAILY for REPLACEMENT, (Reported) Entered as Reported by: Angi Mckeon on 03/19/212055 Scheduled PRN Acetaminophen (Acetaminophen) 500 Mg Tablet, 1 TAB PO PRN Q6HRS PRN for pain or fever for 15 Days, #60 Ref 0 (Reported) Entered as Reported by: Angi Mckeon on 03/19/212055 Miscellaneous Medications Folic Acid/Vit Bcomp,C (Renal Vitamin Tablet) 0.8 Mg Tablet, 0.8 MG PO, (Reported) Entered as Reported by: ZEESHAN REYES on 12/13/15 1404 Last Action: Reviewed on 06/22/211135 by MACY PARADA Discontinued Medications Carvedilol (Coreg) 25 Mg Tablet, 25 MG PO BIDWMEALS for CARDIAC, (Reported) Entered as Reported by: Angi Mckeon on 03/19/212055 Last Action: Discontinued on 06/22/211135 by MACY PARADA Justicifation of Admission Dx: Justifications for Admission: Justification of Admission Dx: Yes CHF: Hemodynamic Instability Sepsis: Hypoxemia RAIN CROCKETT MD Jun 24, 2021 09:45
[2021-06-24 11:00] VITALS: BP 161/76
--- NOTE | 2021-06-24 13:02 | PDOC ---
PULMONARY PROGRESS NOTES DATE: 06/24/21 TIME: 12:59 Subjective This is a 70-year-old female who was admitted with acute hypoxic respiratory failure, flash pulmonary edema, hypertension, and end-stage renal disease. She was initially treated with BiPAP. She improved markedly with dialysis with fluid removal and blood pressure control. Presently she is on room air without dyspnea. Vitals Vital Signs Date Time Temp Pulse Resp B/P (MAP) Pulse Ox O2 Delivery O2 Flow Rate FiO2 06/24/21 11:00 98.7 87 18 161/76 (104) 91 Nasal Cannula 3.0 98.7 ROS: No Nausea, No Chest Pain, No Abdominal Pain General: Alert, Oriented X4, No acute distress Lungs: Clear Cardiovascular: S1, S2 Abdomen: Soft Neuro Exam: Alert, Oriented Extremities: No Edema Labs Laboratory Tests Test 06/22/21 18:16 06/22/21 20:49 06/23/21 04:48 06/23/21 11:33 Glucose (Fingerstick) 100 mg/dL (70-99) 108 mg/dL (70-99) 66 mg/dL (70-99) White Blood Count 11.0 x10^3/uL (4.0-11.0) Red Blood Count 3.06 x10^6/uL (3.50-5.40) Hemoglobin 10.2 g/dL (12.0-15.5) Hematocrit 30.8 % (36.0-47.0) Mean Corpuscular Volume 101 fL (79-100) Mean Corpuscular Hemoglobin 33 pg (25-35) Mean Corpuscular Hemoglobin Concent 33 g/dL (31-37) Red Cell Distribution Width 13.9 % (11.5-14.5) Platelet Count 91 x10^3/uL (140-400) Sodium Level 136 mmol/L (136-145) Potassium Level 5.5 mmol/L (3.5-5.1) Chloride Level 99 mmol/L (98-107) Carbon Dioxide Level 31 mmol/L (21-32) Anion Gap 6 (6-14) Blood Urea Nitrogen 26 mg/dL (7-20) Creatinine 5.8 mg/dL (0.6-1.0) Estimated GFR (Cockcroft-Gault) 8.7 Glucose Level 77 mg/dL (70-99) Hemoglobin A1c 5.4 % (4.8-5.6) Calcium Level 8.7 mg/dL (8.5-10.1) Test 06/23/21 12:12 06/23/21 14:00 06/23/21 17:51 06/23/21 21:05 Glucose (Fingerstick) 177 mg/dL (70-99) 92 mg/dL (70-99) 101 mg/dL (70-99) 113 mg/dL (70-99) Test 06/24/21 04:30 06/24/21 11:41 Sodium Level 135 mmol/L (136-145) Potassium Level 4.7 mmol/L (3.5-5.1) Chloride Level 98 mmol/L (98-107) Carbon Dioxide Level 33 mmol/L (21-32) Anion Gap 4 (6-14) Blood Urea Nitrogen 31 mg/dL (7-20) Creatinine 5.6 mg/dL (0.6-1.0) Estimated GFR (Cockcroft-Gault) 9.1 Glucose Level 83 mg/dL (70-99) Calcium Level 8.2 mg/dL (8.5-10.1) Glucose (Fingerstick) 102 mg/dL (70-99) Laboratory Tests Test 06/23/21 14:00 06/23/21 17:51 06/23/21 21:05 06/24/21 04:30 Glucose (Fingerstick) 92 mg/dL (70-99) 101 mg/dL (70-99) 113 mg/dL (70-99) Sodium Level 135 mmol/L (136-145) Potassium Level 4.7 mmol/L (3.5-5.1) Chloride Level 98 mmol/L (98-107) Carbon Dioxide Level 33 mmol/L (21-32) Anion Gap 4 (6-14) Blood Urea Nitrogen 31 mg/dL (7-20) Creatinine 5.6 mg/dL (0.6-1.0) Estimated GFR (Cockcroft-Gault) 9.1 Glucose Level 83 mg/dL (70-99) Calcium Level 8.2 mg/dL (8.5-10.1) Test 06/24/21 11:41 Glucose (Fingerstick) 102 mg/dL (70-99) Medications Active Scripts Medications Dose Route/Sig Max Daily Dose Days Date Category Carvedilol (Carvedilol) 12.5 Mg Tablet 12.5 Mg PO BIDWMEALS 06/22/21 Reported Hydralazine Hcl 50 Mg Tablet 100 Mg PO BID 30 03/21/21 Rx Acetaminophen 500 Mg Tablet 1 Tab PO PRN Q6HRS PRN 15 03/19/21 Reported Zinc (Zinc Gluconate) 30 Mg Tablet 30 Mg PO DAILY 03/19/21 Reported Renal Vitamin Tablet (Folic Acid/Vit Bcomp,C) 0.8 Mg Tablet 0.8 Mg PO 12/13/15 Reported Norvasc (Amlodipine Besylate) 10 Mg Tablet 10 Mg PO DAILY 11/01/15 Rx Phoslo (Calcium Acetate) 667 Mg Capsule 667 Mg PO TIDWMEALS 11/01/15 Rx Impression . 1. Acute hypoxic respiratory failure. 2 flash pulmonary edema. 3. Hypertension. 4. End-stage renal disease. All of the above are markedly improved Plan . She should do well from a pulmonary perspective as long as her renal failure and hypertension are controlled. Thank you for allowing us to participate in her care. MARTIN TY MD Jun 24, 2021 13:02
--- NOTE | 2021-06-24 13:21 | PDOC ---
DATE OF SERVICE DATE: 06/24/21 TIME: 13:15 SUBJECTIVE ROS No complaints , denies SOB OBJECTIVE Vital Signs Vital Signs Date Time Temp Pulse Resp B/P (MAP) Pulse Ox O2 Delivery O2 Flow Rate FiO2 06/24/21 11:00 98.7 87 18 161/76 (104) 91 Nasal Cannula 3.0 98.7 I & 0 Intake and Output 06/24/21 07:00 Intake Total 1000 ml Output Total 30 ml Balance 970 ml Intake Oral 1000 ml Output Urine Total 30 ml # Voids 1 PHYSICAL EXAM Physical Exam General: NAD HEENT: Atraumatic, Lungs: Bibasilar rales, non labored Cardiovascular: S1, S2 Abdomen: Normal bowel sounds, Soft, No tenderness Skin: No rash Neuro: Normal speech, Sensation intact DIAGNOSIS/ASSESSMENT Assessment & Plan ESRD - on HD MWF , missed Friday, was Dialyzed yesterday . Currently no indication for dialysis today . If dced today resume dialysis tomorrow at her OP unit Access Lt Arm BB AVF Hyperkalemia - Dialyzed today Acute on Chronic Diastolic CHF -Volume overload POA- Dialysis with UF 4 lts today Acute Resp Failure on O2 by NE HTNsive Emergency POA Anemia Hgb stable Secondary Hyperparathyroidism Diabetes Defer DC to primary COMMENT/RELEVANT DATA Meds Current Medications Medications (Trade) Dose Ordered Sig/Erwin Start Time Stop Time Status Last Admin Dose Admin Acetaminophen (Tylenol) 650 mg PRN Q6HRS PRN 06/22/21 11:30 Acetaminophen/ Hydrocodone Bitart (Lortab 5/325) 1 tab PRN Q4HRS PRN 06/22/21 11:30 Albumin Human 200 ml @ 200 mls/hr 1X PRN PRN 06/22/21 13:30 06/22/21 19:29 DC Amlodipine Besylate (Norvasc) 10 mg DAILY 06/22/21 12:00 06/24/21 09:00 10 MG Aspirin (Ecotrin) 325 mg 1X ONCE 06/22/21 07:45 06/22/21 07:46 DC 06/22/21 07:53 325 MG Bumetanide (Bumex) 1 mg 1X ONCE 06/22/21 09:15 06/22/21 09:18 DC 06/22/21 09:39 1 MG Calcium Acetate (Phoslo) 667 mg TIDWMEALS 06/22/21 12:00 06/24/21 11:58 667 MG Calcium Gluconate (Calcium Gluconate) 1,000 mg 1X ONCE 06/22/21 09:15 06/22/21 09:18 DC 06/22/21 09:44 1,000 MG Carvedilol (Coreg) 25 mg BIDWMEALS 06/22/21 12:00 06/24/21 08:59 25 MG Dextrose (Dextrose 50%-Water Syringe) 12.5 gm PRN Q15MIN PRN 06/22/21 11:15 06/23/21 11:42 12.5 GM Diphenhydramine HCl (Benadryl) 25 mg 1X PRN PRN 06/22/21 13:30 06/23/21 13:29 DC Fentanyl Citrate (Fentanyl 2ml Vial) 25 mcg PRN Q1HR PRN 06/22/21 11:30 Heparin Sodium (Porcine) (Heparin Sodium) 5,000 unit Q8HRS 06/22/21 14:00 06/23/21 05:42 5,000 UNIT Hydralazine HCl (Apresoline) 100 mg BID 06/22/21 12:00 06/24/21 09:00 100 MG Info (PHARMACY MONITORING -- do not chart) 1 each PRN DAILY PRN 06/23/21 08:00 Insulin Glargine (Lantus Syringe) 10 unit QHS 06/22/21 21:00 06/22/21 20:53 10 UNIT Insulin Human Lispro (HumaLOG) 0-5 UNITS TIDWMEALS 06/22/21 12:00 Insulin Human Regular (HumuLIN R VIAL) 10 unit 1X ONCE 06/22/21 09:15 06/22/21 09:18 DC 06/22/21 09:43 10 UNIT Lorazepam (Ativan Inj) 0.5 mg PRN Q6HRS PRN 06/22/21 11:30 Lorazepam (Ativan) 1 mg PRN Q6HRS PRN 06/22/21 11:30 Magnesium Hydroxide (Milk Of Magnesia) 2,400 mg PRN Q12HR PRN 06/22/21 11:30 Nitroglycerin (Nitro-Bid Oint) 1 inch 1X ONCE 06/22/21 08:00 06/22/21 08:01 DC 06/22/21 07:53 1 INCH Nitroglycerin/ Dextrose 250 ml @ 1.5 mls/hr CONT PRN 06/22/21 15:45 06/22/21 16:54 30 MLS/HR Ondansetron HCl (Zofran) 4 mg PRN Q6HRS PRN 06/22/21 11:30 Sodium Chloride 1,000 ml @ 400 mls/hr Q2H30M PRN 06/23/21 08:00 06/23/21 19:59 DC Sodium Chloride (Normal Saline Flush) 3 ml QSHIFT PRN 06/22/21 11:30 Zolpidem Tartrate (Ambien) 5 mg PRN QHS PRN 06/22/21 11:30 Lab Laboratory Tests Test 06/23/21 14:00 06/23/21 17:51 06/23/21 21:05 06/24/21 04:30 Glucose (Fingerstick) 92 mg/dL (70-99) 101 mg/dL (70-99) 113 mg/dL (70-99) Sodium Level 135 mmol/L (136-145) Potassium Level 4.7 mmol/L (3.5-5.1) Chloride Level 98 mmol/L (98-107) Carbon Dioxide Level 33 mmol/L (21-32) Anion Gap 4 (6-14) Blood Urea Nitrogen 31 mg/dL (7-20) Creatinine 5.6 mg/dL (0.6-1.0) Estimated GFR (Cockcroft-Gault) 9.1 Glucose Level 83 mg/dL (70-99) Calcium Level 8.2 mg/dL (8.5-10.1) Test 06/24/21 11:41 Glucose (Fingerstick) 102 mg/dL (70-99) Results All relevant outside records, renal labs, imaging studies, telemetry/EKG's were reviewed. Justicifation of Admission Dx: Justifications for Admission: Justification of Admission Dx: Yes CHF: Hemodynamic Instability Sepsis: Hypoxemia CORTNEY CANTU MD Jun 24, 2021 13:20
--- NOTE | 2021-06-24 16:37 | NUR ---
patient discharged home with family. no O2 needs per 6 min walk. Meds and follow up reviewed. patient has inhaler at home. encouraged to use it when she is short of breath. IV removed intact. Patient stable upon dc.
== END 2021-06-24 16:38 | disposition home or self-care (01) | DRG 291 ==
LOC: ER 07:13 → 1 WEST ICU 09:30 → 5 SOUTH 06-23 20:06
PROVIDERS: ADMIT Family Medicine; ATTEND Family Medicine
PROC: 5A09357 Assistance with Respiratory Ventilation, Less than 24 Consecutive Hours, Continuous Positive Airway Pressure (ICD-10-PCS; principal; 2021-06-22)
PROC: 5A1D70Z Performance of Urinary Filtration, Intermittent, Less than 6 Hours Per Day (ICD-10-PCS; 2021-06-22)
PROC: 5A1D70Z Performance of Urinary Filtration, Intermittent, Less than 6 Hours Per Day (ICD-10-PCS; 2021-06-23)
DX: I13.2 Hypertensive heart and chronic kidney disease with heart failure and with stage 5 chronic kidney disease, or end stage renal disease (principal); I50.33 Acute on chronic diastolic (congestive) heart failure; J96.01 Acute respiratory failure with hypoxia; N18.6 End stage renal disease; I16.1 Hypertensive emergency; E87.4 Mixed disorder of acid-base balance; N25.81 Secondary hyperparathyroidism of renal origin; E87.5 Hyperkalemia; D63.1 Anemia in chronic kidney disease; E11.22 Type 2 diabetes mellitus with diabetic chronic kidney disease; L40.50 Arthropathic psoriasis, unspecified; Z79.899 Other long term (current) drug therapy; Z82.49 Family history of ischemic heart disease and other diseases of the circulatory system; Z99.2 Dependence on renal dialysis; E21.3 Hyperparathyroidism, unspecified; L40.9 Psoriasis, unspecified; M19.90 Unspecified osteoarthritis, unspecified site; Z98.51 Tubal ligation status; F32.A Depression, unspecified
CPT/HCPCS: 36415; 36600; 71045; 80048; 80053; 82553; 82805; 82962; 83036; 83735; 83880; 84484; 85025; 85027; 85610; 85730; 86706; 87426; 93005; 93970; 94618; 94660; 96365; 96366; 96375; J0610; J1644; J1815; J2405; J3490; U0003; U0005; 99291-25; G0378